=== PATIENT | female | born 1950 | race African-American/Black ===

== ENCOUNTER 2016-08-02 22:20 | Inpatient (IN) | payer MEDICARE ==
[2016-08-02] MEDS ORDERED: MORPHINE IV ONE (22:38)
--- NOTE | 2016-08-02 22:46 | Emergency Department Report ---
ED Shortness of Breath HPI - General Chief Complaint: Dyspnea/Respdistress Stated Complaint: CHEST PAIN Time Seen by Provider: 08/02/16 22:28 Source: patient, family - History of Present Illness Initial Comments: Pt is a 66 yr old female with a h/o HTN, CHF, DM, ESRD on dailysis T TH Sat who presents to the ED c/o shortness of breath which started x 1 day. SOB at rest and exacerbated with exertion. Pt also has had shingles of the RLQ abdomen for the past 3 days. Pt did go to her PMD this morning at [facility] and was prescribed gabapentin and oxycodone, no other medications. Otherwise no fevers, chills, OLEARY, dizziness, NVD, CP, abd pain, travel, or sick contacts. PMD: [facility] Cards: Dr Zuniga Nephro:Dr Gallegos ED Review of Systems ROS: Stated complaint: CHEST PAIN Other details as noted in HPI Comment: All other systems reviewed and negative ED Past Medical Hx - Past Medical History Previous Medical History?: Yes Hx Hypertension: Yes Hx Renal Disease: Yes ED Physical Exam - General General appearance: alert, in no apparent distress - Head Head exam: Present: atraumatic, normocephalic - Eye Eye exam: Present: normal appearance, PERRL, EOMI Pupils: Present: normal accommodation - ENT ENT exam: Present: normal exam, mucous membranes moist - Neck Neck exam: Present: normal inspection - Respiratory Respiratory exam: Present: normal lung sounds bilaterally, wheezes, decreased breath sounds, other (tachypnea) - Cardiovascular Cardiovascular Exam: Present: regular rate, normal rhythm, normal heart sounds. Absent: systolic murmur, diastolic murmur, rubs, gallop - GI/Abdominal GI/Abdominal exam: Present: soft, normal bowel sounds, other (RLQ Shingles with vesicles). Absent: distended, tenderness, guarding, rebound, rigid - Extremities Exam Extremities exam: Present: normal inspection - Back Exam Back exam: Present: normal inspection - Neurological Exam Neurological exam: Present: alert, oriented X3 - Psychiatric Psychiatric exam: Present: normal affect, normal mood - Skin Skin exam: Present: warm, dry, intact, normal color. Absent: rash ED Course Vital Signs 08/02/16 08/02/16 08/03/16 22:41 23:10 00:21 Temperature 98.7 F 98.7 F Pulse Rate 69 69 Respiratory 15 15 18 Rate Blood Pressure 141/73 Blood Pressure 131/54 141/73 [Left] O2 Sat by Pulse 99 98 98 Oximetry - Reevaluation(s) Reevaluation #1: 08/03/16 00:11 Pt re-evaluated, pt reports improvement with breathing, but is still tachypneic ED Medical Decision Making - Lab Data Result diagrams: 08/02/16 22:57 08/02/16 22:57 - EKG Data -: EKG Interpreted by Me - Radiology Data Radiology results: report reviewed, image reviewed CXR: Cardiomegaly with AICD in L chest, otherwise no other findings. - Medical Decision Making Pt report improvement, but still tachypneic, ordered lasix 40mg IVP Case d/w Dr Gallegos, he will see patient on consult and will arrange for dialysis Critical care attestation.: If time is entered above; I have spent that time in minutes in the direct care of this critically ill patient, excluding procedure time. ED Disposition Clinical Impression: Dyspnea, CHF (congestive heart failure), ESRD (end stage renal disease) on dialysis, Shingles Disposition: OP ADMIT IP TO THIS HOSP Is pt being admited?: Yes Condition: Stable
[2016-08-02] MEDS ORDERED: PROVENTIL IH ONE (22:52)
[2016-08-02] MEDS ORDERED: DUONEB 0.5 MG-3 MG/3 ML SOLN IH ONE (22:52)
[2016-08-02 23:39] LABS: INR 1.78 (0.87-1.13); Partial Thromboplastin Time 36.5 Sec. (24.2-36.6)
[2016-08-02 23:45] LABS: Albumin/Globulin Ratio 1.3 %; BUN/Creatinine Ratio 8.84; Bilirubin,Total 0.6 mg/dL (0.1-1.2); Chloride 98.1 mmol/L (98-107); Total Protein 7.2 g/dL (6.3-8.2)
--- NOTE | 2016-08-03 00:11 | XRay Report ---
FINAL REPORT EXAM: XR CHEST 1V AP HISTORY: Chest Pain TECHNIQUE: AP portable view(s) of the chest obtained. PRIORS: None. FINDINGS: No mediastinal shift. Cardiomegaly. No pneumothorax, effusion or focal airspace disease. Left chest pacemaker. No acute skeletal finding. IMPRESSION: No acute pulmonary finding identified.
[2016-08-03] MEDS ORDERED: LASIX IV ONE (00:12)
[2016-08-03 00:20] LABS: Basophils % (Auto) 0.6 % (0.0-1.8); Eosinophils % (Auto) 5.1 % (0.0-4.3); Hematocrit 31.2 % (30.3-42.9); Hemoglobin 9.6 gm/dl (10.1-14.3); Mean Corpuscular HGB Conc 31 % (30-34); Mean Corpuscular Hemoglobin 29 pg (28-32); Mean Corpuscular Volume 93 fl (79-97); Platelet Count 155 K/mm3 (140-440); Red Blood Count 3.36 M/mm3 (3.65-5.03); White Blood Count 8.1 K/mm3 (4.5-11.0)
[2016-08-03 00:23] LABS: Red Cell Distribution Width 21.9 % (13.2-15.2)
[2016-08-03] MEDS ORDERED: VALTREX PO ONE (00:30)
[2016-08-03] MEDS ORDERED: NACL 0.9% 100 ML IV PRN (00:36)
--- NOTE | 2016-08-03 00:38 | Event Note ---
DAREN NINO called pt SOB , appeared to be in fluid overload Will HD today and follow
--- NOTE | 2016-08-03 01:19 | Admit Criteria Form ---
Admission Criteria Documentation: HEART FAILURE: COMMON COMPLICATIONS Clinical Indications for Inpatient Care (Place 'X' for any and all applicable criteria): Ongoing inpatient care may be indicated for heart failure with ANY ONE of the following (1)(2)(3)(4)(5): [ ]I. Ongoing need for care for primary condition requiring frequent therapy adjustments because of changes in cardiac function (eg, drug dosage changes for drugs that are renally metabolized) [ ]II. New-onset heart failure [ ]III. Heart failure with decreased urine output not responsive to attempts to optimize volume status [ ]IV. Acute cardiac ischemia causing or associated with failure [X ]V. Complications of heart failure, including ANY ONE of the following: [ ]a) Pericardial effusion [ ]b) Symptomatic pleural effusion [ ]c) O2 saturation <90% or PO2 < 60 mm Hg (8.0 kPa) on room air or require baseline supplemental O2 [ ]d) Tachypnea [ X]e) Dyspnea [ ]f) Syncope [ ]g) Change in mental status [ ]h) Acute renal insufficiency that is severe (reduction of more than 50% in estimated glomerular filtration rate from baseline) or progressive reduction of more than 25% in estimated glomerular filtration rate from baseline, with creatinine continuing to rise) [ ]i) Hemodynamic instability [ ]j) Anasarca [ ]k) Clinically significant metabolic abnormalities due to heart failure (eg, new-onset metabolic acidosis) Extended stay beyond goal length of stay for primary condition may be needed until ALL of the following are present(1)(3): [ ]a) Stable and effective diuretic regimen established (or patient on stable dialysis regimen if in chronic renal failure) [ ]b) Breathing comfortably at rest [ ]c) Saturation of arterial oxygen greater than 90% or at acceptable baseline [ ]d) Pulmonary edema absent or improved [ ]e) Hemodynamic stability [ ]f) Volume status acceptable on oral medication [ ]g) Peripheral or sacral edema absent or improved [ ]h) Renal function stable and manageable at a lower level of care [ ]i) Complications (eg, pleural effusion) resolved or manageable at a lower level of care [ ]j) Patient or caregiver has received written discharge instructions or educational material addressing activity level, diet, discharge medications, follow-up appointment, weight monitoring, and what to do if symptoms worsen The original [facility] content created by [employer] has been revised. The portions of the content which have been revised are identified through the use of italic text or in bold, and [facility] has neither reviewed nor approved the modified material.All other unmodified content is copyright [facility]. Please see references footnoted in the original [facility] edition 2016 Admission Criteria Met: Yes
--- NOTE | 2016-08-03 01:45 | Event Note ---
Date: 08/03/16 See H/p in reports CHF exacerbation Herpes Zoster T12 root Rt Side ESRD on HD Elevated Troponin T2DM?? HTN Medication reconciliation not available
[2016-08-03] MEDS ORDERED: TYLENOL PO PRN (01:57)
[2016-08-03] MEDS ORDERED: DILAUDID IV PRN (01:57)
[2016-08-03] MEDS ORDERED: MILK OF MAGNESIA PO PRN (01:57)
[2016-08-03] MEDS ORDERED: DULCOLAX PR PRN (01:57)
[2016-08-03] MEDS ORDERED: SODIUM CHLORIDE FLUSH SYRINGE 10 ML IV PRN (02:24)
--- NOTE | 2016-08-03 03:34 | History and Physical Report ---
CHIEF COMPLAINT: Increasing shortness of breath of 1 day duration. HISTORY OF PRESENT ILLNESS: A 66-year-old [place] female with multiple medical problems including hypertension, CHF, diabetes, end-stage renal disease on dialysis, comes in for increasing shortness of breath of 1 day duration. The patient had dialysis yesterday and is due for dialysis on Friday. The patient also has a rash on the right lower quadrant of her abdomen consistent with herpes zoster. The patient did go to her PMD and was given gabapentin and oxycodone. Apparently, no Valtrex or acyclovir was given. No fevers, no chills. The patient is regular for dialysis. Her hosiery looper is Dr. Gallegos from Nephrology and Dr. Zuniga for Cardiology. Orthopnea present. No PND attacks. No chest pain. No palpitations. PAST MEDICAL HISTORY: Significant for hypertension, end-stage renal disease, diabetes, CHF. PAST SURGICAL HISTORY: AV fistula. FAMILY HISTORY: Significant for hypertension. CURRENT MEDICATIONS: Not on the chart. REVIEW OF SYSTEMS: CONSTITUTIONAL: No weight loss, no weight gain. HEENT: No sore throat, no postnasal drip. CARDIOVASCULAR AND RESPIRATORY: Shortness of breath present. As mentioned, orthopnea present. No cough. No wheezing. No sputum. GASTROINTESTINAL: No nausea, no vomiting, no diarrhea. GENITOURINARY: No dysuria, no flank pain. MUSCULOSKELETAL: No joint pains. No muscle pains. CENTRAL NERVOUS SYSTEM: No syncope, no seizures. SKIN: Rash on the right lower quadrant consistent with shingles. Pain present. PSYCHIATRIC: No depression, no anxiety. No homicidal or suicidal thoughts. A 14-point review of system was done. PHYSICAL EXAMINATION: GENERAL: On examination, elderly female, cooperative during examination. Slightly short of breath at rest. VITAL SIGNS: Temperature 98.7, pulse 69, respirations 15, blood pressure 131/54, O2 sats are 99%. HEENT: Unremarkable. Pupils equal and reactive. NECK: Supple, no lymphadenopathy, no thyromegaly. LUNGS: Clear to auscultation and percussion. Good air entry. CARDIOVASCULAR: S1, S2 heard. No gallop, no murmur, no rub. Apical impulse in left fifth intercostal space and midclavicular line. ABDOMEN: Soft and benign. There is a vesicular rash present in the right lower quadrant consistent with T12 nerve root herpes zoster infection. CENTRAL NERVOUS SYSTEM: Alert and oriented x 4, nonfocal exam. EXTREMITIES: Normal. SKIN: As mentioned. LABORATORY DATA: Significant for white count of 8100, H and H is 9.6 and 31.2, platelet count is 155,000. Sodium is 139, potassium is 5.0. Troponin is 0.039. BUN and creatinine is 46 and 5.2. BNP is 6542. DIAGNOSTIC DATA: EKG shows electronic pacemaker, heart rate of 70 per minute. Chest x-ray shows severe cardiomegaly. There is slight pulmonary vascular congestion. ASSESSMENT AND PLAN: 1. Congestive heart failure exacerbation. The patient was given Lasix. The patient also being taken for emergent dialysis for ultrafiltration and fluid removal. 2. Herpes zoster infection. The patient started on Valtrex 1000 t.i.d. and gabapentin 100 q. 8 hours. 3. Hypertension. The patient's home medications are not on the chart. We will start empirically on losartan 100 daily and Coreg 6.25 q. 12. 4. Type 2 diabetes, coverage for now. The to bring the medications and the medications to be reconciled. 5. End-stage renal disease. Continue hemodialysis. Dr. Gallegos of Nephrology consulted. 6. Anemia chronic secondary to end-stage renal disease. MCH and MCV are normal. Epogen as necessary. We will defer to Cardiology. 7. Elevated troponin of 0.039, probably secondary to end-stage renal disease. We will keep a check on the troponin and cardiac enzymes. 8. Deep venous thrombosis prophylaxis, heparin 5000 q. 12 hours. JOB# [id number] VSM/NTS
[2016-08-03 03:47] LABS: Creatine Kinase MB 1.8 ng/mL (0.0-4.0)
[2016-08-03] MEDS: COREG PO SCH ×3 (05:19→22:00)
[2016-08-03] MEDS: NEURONTIN PO SCH ×3 (07:08→22:00)
[2016-08-03] MEDS: PERCOCET 5/325 PO PRN (07:12)
[2016-08-03] MEDS: NOVOLOG SUB-Q SCH ×4 (08:00→23:16)
[2016-08-03] MEDS ORDERED: VALTREX PO SCH ×3 (08:00→22:00)
[2016-08-03] MEDS ORDERED: NACL 0.9% 1000 ML 2,000 ML ONE (10:11)
[2016-08-03] MEDS: PEPCID PO SCH ×2 (10:32→22:00)
[2016-08-03] MEDS: COZAAR PO SCH (10:32)
--- NOTE | 2016-08-03 10:39 | Event Note ---
Date: 08/03/16 Patient with ESRD, chronic CHF, presented with shortness of breath. She is diagnosed with acute on chronic CHF. She was seen and examined. Continue current management.
--- NOTE | 2016-08-03 11:22 | Consultation ---
History of Present Illness - History of Present Illness Thank you for the consultation Patient was evaluated today Well-known to me from [place] [facility] Assessment and plan End-stage renal disease currently on maintenance hemodialysis in a patient who has been very poorly compliant with diet lifestyle and fluid She is currently on Friday schedule for dialysis and was admitted with shortness of breath and chest pain Patient still continues to carry excessive amount of fluid and presented to the hospital with shortness of breath she was dialyzed last night and is currently feeling better Chest pain, appears to be atypical patient also has had shortness of breath could also be due to other etiologies patient does have history of congestive heart failure and needs to be seen by Dr. Zuniga Anemia in end-stage renal disease with history of occult GI bleed in the past was also being followed by gastroenterology hemoglobin is satisfactory Noted to have shingles has had vaccine lat year History of multiple comorbidities in a patient who is very poorly compliant has been discussed on several occasions Admission hemoglobin was 9.6. BNP was elevated 6542 potassium was 5 BUN 46 creatinine was 5.2 We'll continue to follow and make recommendation from renal standpoint Medications and Allergies Allergies Allergy/AdvReac Type Severity Reaction Status Date / Time No Known Allergies Allergy Verified 08/03/16 00:35 Active Meds: Active Medications Acetaminophen (Tylenol) 650 mg PO Q4H PRN PRN Reason: Pain MILD(1-3)/Fever >100.5/OLEARY Aspirin (Ecotrin) 325 mg PO QDAY ÁNGEL Bisacodyl (Dulcolax) 10 mg IN QDAY PRN PRN Reason: Constipation unrelieved by MOM Carvedilol (Coreg) 6.25 mg PO BID [facility] Last Admin: 08/03/16 10:33 Dose: 6.25 mg Famotidine (Pepcid) 10 mg PO BID [facility] Last Admin: 08/03/16 10:32 Dose: 10 mg Gabapentin (Neurontin) 100 mg PO Q8HR [facility] Last Admin: 08/03/16 07:08 Dose: 100 mg Hydromorphone HCl (Dilaudid) 0.5 mg IV Q3H PRN PRN Reason: Pain , Severe (7-10) Sodium Chloride (Nacl 0.9%) 100 mls @ 999 mls/hr IV BUFFY PRN PRN Reason: Hypotension Insulin Aspart (Novolog) 0 units SUB-Q ACHS ÁNGEL PRN Reason: Protocol Last Admin: 08/03/16 08:00 Dose: Not Given Losartan Potassium (Cozaar) 100 mg PO QDAY [facility] Last Admin: 08/03/16 10:32 Dose: 100 mg Magnesium Hydroxide (Milk Of Magnesia) 30 ml PO Q4H PRN PRN Reason: Constipation Ondansetron HCl (Zofran) 4 mg IV Q8H PRN PRN Reason: N/V unrelieved by Reglan Oxycodone/Acetaminophen (Percocet 5/325) 1 tab PO Q6H PRN PRN Reason: Pain, Moderate (4-6) Last Admin: 08/03/16 07:12 Dose: 1 tab Sodium Chloride (Sodium Chloride Flush Syringe 10 Ml) 10 ml IV PRN PRN PRN Reason: LINE FLUSH Valacyclovir HCl (Valtrex) 1,000 mg PO Q24H [facility] Exam - Vital Signs Vital signs: Vital Signs Temp Pulse Resp BP Pulse Ox 98.7 F 69 15 131/54 99 08/02/16 22:41 08/02/16 22:41 08/02/16 22:41 08/02/16 22:41 08/02/16 22:41 Results - Lab Results 08/02/16 22:57 08/02/16 22:57 Most recent lab results Calcium 8.0 mg/dL (8.4-10.2) L 08/02/16 22:57
[2016-08-03] MEDS: ZOFRAN IV PRN (13:45)
[2016-08-03] MEDS ORDERED: NACL ONE (17:21)
[2016-08-04] MEDS: NEURONTIN PO SCH ×3 (06:14→21:48)
[2016-08-04] MEDS: NOVOLOG SUB-Q SCH ×4 (08:00→21:49)
--- NOTE | 2016-08-04 08:06 | Consultation ---
History of Present Illness Consult date: 08/04/16 Consult reason: congestive heart failure History of present illness: Pt is a 66 yr old female with a h/o HTN, CHF, DM, ESRD on dailysis who presented to the ED c/o shortness of breath which started x 1 day, occurred both at rest and with exertion. Patient did not not chest pain, palpitations, dizziness and syncope. No peripheral edema. Some orthopnea, and pnd present. Patient also demonstrated right lower quadrant pain with rash. Pt also has had shingles of the RLQ abdomen for the past 3 days. Patient does not speak fluent libyan. Much of the history was difficult to obtain and the rest was taken from the chart. No director dietetics department was available. Past History Past Medical History: dialysis, ESRD, heart failure, hypertension Medications and Allergies Allergies Allergy/AdvReac Type Severity Reaction Status Date / Time No Known Allergies Allergy Verified 08/03/16 00:35 Active Meds: Active Medications Acetaminophen (Tylenol) 650 mg PO Q4H PRN PRN Reason: Pain MILD(1-3)/Fever >100.5/OLEARY Aspirin (Ecotrin) 325 mg PO QDAY [facility] Bisacodyl (Dulcolax) 10 mg [place] QDAY PRN PRN Reason: Constipation unrelieved by MOM Carvedilol (Coreg) 6.25 mg PO BID [facility] Last Admin: 08/03/16 22:00 Dose: 6.25 mg Famotidine (Pepcid) 10 mg PO BID [facility] Last Admin: 08/03/16 22:00 Dose: 10 mg Gabapentin (Neurontin) 100 mg PO Q8HR [facility] Last Admin: 08/04/16 06:14 Dose: 100 mg Hydromorphone HCl (Dilaudid) 0.5 mg IV Q3H PRN PRN Reason: Pain , Severe (7-10) Last Admin: 08/03/16 14:40 Dose: 0.5 mg Sodium Chloride (Nacl 0.9%) 100 mls @ 999 mls/hr IV BUFFY PRN PRN Reason: Hypotension Insulin Aspart (Novolog) 0 units SUB-Q ACHS ÁNGEL PRN Reason: Protocol Last Admin: 08/03/16 23:16 Dose: Not Given Losartan Potassium (Cozaar) 100 mg PO QDAY [facility] Last Admin: 08/03/16 10:32 Dose: 100 mg Magnesium Hydroxide (Milk Of Magnesia) 30 ml PO Q4H PRN PRN Reason: Constipation Ondansetron HCl (Zofran) 4 mg IV Q8H PRN PRN Reason: N/V unrelieved by Reglan Last Admin: 08/03/16 13:45 Dose: 4 mg Oxycodone/Acetaminophen (Percocet 5/325) 1 tab PO Q6H PRN PRN Reason: Pain, Moderate (4-6) Last Admin: 08/03/16 07:12 Dose: 1 tab Sodium Chloride (Sodium Chloride Flush Syringe 10 Ml) 10 ml IV PRN PRN PRN Reason: LINE FLUSH Valacyclovir HCl (Valtrex) 1,000 mg PO Q72HR ÁNGEL Review of Systems All systems: negative (pertinent positives mentioned in HPI) Physical Examination Vital Signs Temp Pulse Resp BP Pulse Ox 98.7 F 69 15 131/54 99 08/02/16 22:41 08/02/16 22:41 08/02/16 22:41 08/02/16 22:41 08/02/16 22:41 General appearance: no acute distress HEENT: Positive: PERRL, EOMI Neck: Positive: neck supple. Negative: JVD/HJR Cardiac: Positive: Reg Rate and Rhythm, S1/S2 Lungs: Positive: clear to auscultation Abdomen: Positive: Soft, Active Bowel Sounds Extremities: Present: normal. Absent: edema Results 08/02/16 22:57 08/02/16 22:57 Cardiac Enzymes 08/03/16 Range/Units 08:11 CK-MB (CK-2) 2.0 (0.0-4.0) ng/mL Assessment and Plan CHF - no documentation of EF HTN ESRD on HD Madiglabhi Continue medical therapy with BB and ACEi Currently euvolemic by physical exam Volume removal via dialysis Blood pressure well controlled - continue current medical therapy Obtain echo for documentation of EF
[2016-08-04 09:54] LABS: INR 1.69 (0.87-1.13)
[2016-08-04] MEDS: COREG PO SCH ×2 (10:43→21:48)
[2016-08-04] MEDS: PEPCID PO SCH ×2 (10:44→21:48)
[2016-08-04] MEDS: ECOTRIN PO SCH (10:44)
[2016-08-04] MEDS: COZAAR PO SCH (10:45)
[2016-08-04] MEDS: PERCOCET 5/325 PO PRN ×2 (11:27→17:52)
--- NOTE | 2016-08-04 11:55 | Progress Note ---
Assessment and Plan End-stage renal disease patient is currently in maintenance hemodialysis on Friday and Friday She did receive dialysis on late Friday night Patient is currently established at [facility] She has been very noncompliant with her diet and lifestyle and does have chronic fluid overload History of anemia with chronic intermittent GI bleed, to be monitored hemoglobin was fairly stable History of chronic atrial fibrillation followed by Dr. Zuniga/history of congestive heart failure Admitted with the herpes zoster Valtrex dose was adjusted to be given after dialysis Patient is currently already on gabapentin We'll continue to follow and make recommendation from renal standpoint Depending on her volume can consider either Friday or Friday while she is here Subjective Interval history: Patient was seen today for follow-up on multiple renal related issues Currently denying any complaints of chest pain pressure nausea or vomiting Events of 24 hours vitals labs intake output medications were reviewed Zoster pain is somewhat better currently on Valtrex Physical examination Vitals reviewed HEENT: Oral mucosa moist Neck: Supple no thyromegaly or JVD Cardiovascular: Regular rate and rhythm S1 and S2 heard Abdomen: Soft nontender no suprapubic mass no renal bruit Rash from zoster seen Extremity: Edema moderate dry skin, no peripheral cyanosis Neurological: Alert awake follows commands Objective - Vital Signs Vital signs: Vital Signs - 12hr 08/04/16 08/04/16 08/04/16 00:46 04:57 09:19 Temperature 97.6 F 98.2 F 98.5 F Pulse Rate Pulse Rate [ 84 74 Apical] Pulse Rate [ 71 Left Radial] Respiratory 20 18 16 Rate Blood Pressure Blood Pressure 100/72 121/68 100/62 [Left Arm] O2 Sat by Pulse 94 96 100 Oximetry 08/04/16 08/04/16 08/04/16 09:57 10:43 10:45 Temperature Pulse Rate 71 71 Pulse Rate [ Apical] Pulse Rate [ Left Radial] Respiratory Rate Blood Pressure 100/62 100/62 Blood Pressure [Left Arm] O2 Sat by Pulse 100 Oximetry - Lab 08/02/16 22:57 08/02/16 22:57 Most recent lab results Calcium 8.0 mg/dL (8.4-10.2) L 08/02/16 22:57
[2016-08-04] MEDS: ZOFRAN IV PRN ×2 (13:40→17:51)
--- NOTE | 2016-08-04 14:44 | Consultation ---
TIME OF SERVICE: Around 11:21 in the morning. PERSONNEL ASKING CONSULTATION: Corey Lantigua MD REASON FOR CONSULTATION: Management of end-stage renal disease in a patient, who presented to the hospital with complaints of shortness of breath and some chest pain. SOURCE OF INFORMATION: From the patient's , who is Hebrew speaking as well as old records. She is also known to me from [place] [facility] Subjective Patient is a 66-year-old [place] female who is currently established in our clinic for her ESRD care.. Patient normally dialyzes on Friday schedule recently she has developed herpetic lesion on the right side of her lower abdomen and upper thigh area. She also has had problems with chest discomfort and some shortness of breath. Patient is chronically noncompliant she was evaluated in the ER and was felt to have fluid overload for which dialysis was ordered. Patient has had dialysis and is currently feeling much better She is still continues to have vesicular rash of the right side which she is showing me now. No complaints of any fever or chills headache she has been started on Valtrex Past medical history is significant for End-stage renal disease currently on maintenance hemodialysis Chronic noncompliance with fluid sodium and has consistent fluid overload despite several educational attempts Anemia and end-stage renal disease Secondary hyperparathyroidism Atrial fibrillation GI bleed Congestive heart failure prior history of stroke Current allergies Reviewed Home medicine: Reviewed Social history: Patient is lives with her know history of recent alcohol tobacco use she has very poor eating habits Family history noncontributory for renal related disorder Review of system: Positive for shortness of breath and nonspecific chest pain currently resolved rash that has appeared in the right side of her flank without any fever or chills Complete review of other systems were negative PHYSICAL EXAMINATION: GENERAL: The patient is a 66-year-old oriented female, who is lying comfortably in bed, does not appear in acute distress. VITAL SIGNS: Reviewed from this admission. HEENT: Normocephalic, atraumatic skull. Extraocular movements are intact. Oral mucosa moist. NECK: Supple without jugular venous distention. ABDOMEN: Soft, nontender. No voluntary guarding, rigidity, rebound. No organomegaly. No masses. does have classic herpetic rash in the right flank and front of the abdomen and upper thigh area EXTREMITIES: The patient does have edema more so on the right than the left approximately 1+ with some chronic discoloration. ENDOCRINE: Thyroid not enlarged. dermatology; patient appears to have vesicular eruption along the right side in a dermatomal distribution fashion. labs and x-rays were reviewed from this admission Chest x-ray did not show any evidence of pulmonary vascular congestion her anemia appears to be stable and better ASSESSMENT AND PLAN: End-stage renal disease. The patient is currently on maintenance hemodialysis normally on Friday, , and Friday. Last night, she did paralyze. Currently, she is feeling much better, no complaints of chest pain or pressure. She still continues to have chronic edema more so on the right than left lower extremity. At this time, there is no Indication for repeat dialysis She is feeling much better as per today tolerated hemodialysis well Monitor dialysis related labs Emphasized about fluid restriction sodium restriction changing her diet Assessment explained her everything May benefit from cardiology evaluation and follow-up We'll continue to follow and make recommendation from renal standpoint JOB# [id number] EMELY/KARAN LUJAN
--- NOTE | 2016-08-04 14:59 | Progress Note ---
Assessment and Plan Assessment and plan: Acute on chronic heart failure. On Cozaar. To obtain home medications. Herpezs zoster. valtrex, neurontin End-stage renal disease on hemodialysis Chronic atrial fibrillation. Has been on Coumadin. INR subtherapeutic 1.69. Resume Coumadin Diabetes mellitus type II. Fingerstick glucose qac and hs DVT prophylaxis. on Coumadin Full CODE STATUS History Interval history: right flank pain at site of herpes zoster blister, less shortness of breath Hospitalist Physical - Physical exam Narrative exam: Gen: appearance :Not in acute distress, HEENT: normocephalic atraumatic Neck :supple no JVD Lungs: Bilateral basal rales, no wheezes Heart:S1 and S2 regular, no murmurs, no gallop, no rubs Abdomen soft, nontender, nondistended, normal bowel sounds Extremities: no edema, no clubbing, or cyanosis Neuro : Awake alert oriented 3, no focal neurological signs skin: herpes zoster vesicles on right flank,hip region Psych: calm - Constitutional Vitals: Temp Pulse Resp BP Pulse Ox 98.5 F 70 16 102/64 100 08/04/16 13:38 08/04/16 13:38 08/04/16 13:38 08/04/16 13:38 08/04/16 13:38 General appearance: Present: no acute distress Results - Labs CBC & Chem 7: 08/02/16 22:57 08/02/16 22:57 Labs: Laboratory Last Values WBC 8.1 K/mm3 (4.5-11.0) 08/02/16 22:57 RBC 3.36 M/mm3 (3.65-5.03) L 08/02/16 22:57 Hgb 9.6 gm/dl (10.1-14.3) L 08/02/16 22:57 Hct 31.2 % (30.3-42.9) 08/02/16 22:57 MCV 93 fl (79-97) 08/02/16 22:57 MCH 29 pg (28-32) 08/02/16 22:57 MCHC 31 % (30-34) 08/02/16 22:57 RDW 21.9 % (13.2-15.2) H 08/02/16 22:57 Plt Count 155 K/mm3 (140-440) 08/02/16 22:57 Lymph % (Auto) 6.1 % (13.4-35.0) L 08/02/16 22:57 [place] % (Auto) 8.4 % (0.0-7.3) H 08/02/16 22:57 Eos % (Auto) 5.1 % (0.0-4.3) H 08/02/16 22:57 Baso % (Auto) 0.6 % (0.0-1.8) 08/02/16 22:57 Lymph # 0.5 K/mm3 (1.2-5.4) L 08/02/16 22:57 [place] # 0.7 K/mm3 (0.0-0.8) 08/02/16 22:57 Eos # 0.4 K/mm3 (0.0-0.4) 08/02/16 22:57 Baso # 0.1 K/mm3 (0.0-0.1) 08/02/16 22:57 Seg Neutrophils % 79.8 % (40.0-70.0) H 08/02/16 22:57 Seg Neutrophils # 6.4 K/mm3 (1.8-7.7) 08/02/16 22:57 PT 19.9 Sec. (12.2-14.9) H 08/04/16 09:04 INR 1.69 (0.87-1.13) H 08/04/16 09:04 APTT 36.5 Sec. (24.2-36.6) 08/02/16 22:57 Sodium 139 mmol/L (137-145) 08/02/16 22:57 Potassium 5.0 mmol/L (3.6-5.0) 08/02/16 22:57 Chloride 98.1 mmol/L (98-107) 08/02/16 22:57 Carbon Dioxide 26 mmol/L (22-30) 08/02/16 22:57 Anion Gap 20 mmol/L 08/02/16 22:57 BUN 46 mg/dL (7-17) H 08/02/16 22:57 Creatinine 5.2 mg/dL (0.7-1.2) H 08/02/16 22:57 Estimated GFR 8 ml/min 08/02/16 22:57 BUN/Creatinine Ratio 8.84 % 08/02/16 22:57 Glucose 246 mg/dL (65-100) H 08/02/16 22:57 POC Glucose 116 (70-105) H 08/04/16 07:41 Hemoglobin A1c 5.2 % (4-6) 08/03/16 03:48 Calcium 8.0 mg/dL (8.4-10.2) L 08/02/16 22:57 Total Bilirubin 0.60 mg/dL (0.1-1.2) 08/02/16 22:57 AST 13 units/L (5-40) 08/02/16 22:57 ALT 13 units/L (7-56) 08/02/16 22:57 Alkaline Phosphatase 210 units/L (35-129) H 08/02/16 22:57 Total Creatine Kinase 27 units/L (30-135) L 08/03/16 08:11 CK-MB (CK-2) 2.0 ng/mL (0.0-4.0) 08/03/16 08:11 CK-MB (CK-2) Rel Index 7.4 (0-4) H 08/03/16 08:11 Troponin T 0.043 ng/mL (0.00-0.029) H 08/03/16 08:11 NT-Pro-B Natriuret Pep 6542 pg/mL (0-900) H 08/02/16 22:57 Total Protein 7.2 g/dL (6.3-8.2) 08/02/16 22:57 Albumin 4.0 g/dL (3.9-5) 08/02/16 22:57 Albumin/Globulin Ratio 1.3 % 08/02/16 22:57 Triglycerides 54 mg/dL (2-149) 08/02/16 22:57 Cholesterol 110 mg/dL (50-199) 08/02/16 22:57 LDL Cholesterol Direct 50 mg/dL (50-130) 08/02/16 22:57 HDL Cholesterol 50 mg/dL (40-59) 08/02/16 22:57 Cholesterol/HDL Ratio 2.20 % 08/02/16 22:57
[2016-08-04] MEDS: COUMADIN PO SCH (17:51)
[2016-08-05] MEDS: NEURONTIN PO SCH ×3 (05:27→21:17)
[2016-08-05 05:49] LABS: INR 1.38 (0.87-1.13)
[2016-08-05] MEDS: NOVOLOG SUB-Q SCH ×4 (08:20→21:36)
[2016-08-05] MEDS: ZOFRAN IV PRN ×2 (08:47→18:39)
--- NOTE | 2016-08-05 09:17 | Progress Note ---
Assessment and Plan - Patient Problems (1) ESRD (end stage renal disease) Current Visit: Yes Status: Acute Plan to address problem: HD on T/T/S. Chronic diastolic HF. LVEF-50-55%, UF as tolerated. Adjust meds per renal function. (2) Anemia in ESRD (end-stage renal disease) Current Visit: Yes Status: Acute (3) CHF (congestive heart failure) Current Visit: Yes Status: Chronic Qualifiers: Congestive heart failure type: diastolic Congestive heart failure chronicity: C (4) Shingles Current Visit: Yes Status: Acute Qualifiers: Herpes zoster complications: H Herpes zoster neurologic complication detail : H Herpes zoster ocular complication detail: H (5) HTN (hypertension) Current Visit: Yes Status: Chronic Qualifiers: Hypertension type: H Subjective Date of service: 08/05/16 Interval history: alert, oriented, c/O pain from shingles on right lower abdomen. C/O nausea. reports that pt jerks sometimes Objective - Vital Signs Vital signs: Vital Signs - 12hr 08/04/16 08/05/16 08/05/16 23:19 00:00 04:00 Temperature 98.6 F 98.9 F Pulse Rate [ 70 70 Apical] Respiratory 20 20 Rate Blood Pressure 80/50 89/46 [Left Arm] O2 Sat by Pulse 100 92 99 Oximetry 08/05/16 07:57 Temperature Pulse Rate [ Apical] Respiratory Rate Blood Pressure [Left Arm] O2 Sat by Pulse 99 Oximetry - General Appearance General appearance: well-developed, chronically ill EENT: mucous membranes dry Neck: no JVD Respiratory: Present: Decreased Breath Sounds Cardiology: irregular Gastrointestinal: normoactive bowel sounds Neurologic: alert and oriented x3 Musculoskeletal: other (chronic stasis dermatitic changes in LE, AV access has bruit and thrill) - Lab 08/02/16 22:57 08/02/16 22:57 Most recent lab results Calcium 8.0 mg/dL (8.4-10.2) L 08/02/16 22:57
[2016-08-05] MEDS: ECOTRIN PO SCH (10:48)
[2016-08-05] MEDS: PEPCID PO SCH ×2 (10:49→21:17)
[2016-08-05] MEDS: COREG PO SCH ×2 (10:49→22:00)
[2016-08-05] MEDS: COZAAR PO SCH (10:50)
--- NOTE | 2016-08-05 11:10 | Progress Note ---
Assessment and Plan Assessment and plan: Acute on chronic heart failure. On Cozaar. Nurse too obtain home medication list. Herpezs zoster on right flank and right hip region. On valtrex, neurontin End-stage renal disease on hemodialysis Chronic atrial fibrillation. Has been on Coumadin. INR subtherapeutic 1.69. Resume Coumadin Diabetes mellitus type II. Fingerstick glucose qac and hs DVT prophylaxis. on Coumadin. INR subtherapeutic. Full CODE STATUS Dispo.Likely d/c home tomorrow History Interval history: right flank and right hip pain at site of herpes zoster blister, less shortness of breath Hospitalist Physical - Physical exam Narrative exam: Gen: appearance :Not in acute distress, HEENT: normocephalic atraumatic Neck :supple no JVD Lungs: Bilateral basal rales, no wheezes Heart:S1 and S2 irregular, no murmurs, no gallop, no rubs Abdomen soft, nontender, nondistended, normal bowel sounds Extremities: no edema, no clubbing, or cyanosis Neuro : Awake alert oriented 3, no focal neurological signs skin: herpes zoster vesicles on right flank,hip region Psych: calm - Constitutional Vitals: Temp Pulse Resp BP Pulse Ox 97.4 F L 70 20 128/61 99 08/05/16 08:00 08/05/16 10:50 08/05/16 08:00 08/05/16 10:50 08/05/16 08:00 General appearance: Present: no acute distress Results - Labs CBC & Chem 7: 08/02/16 22:57 08/02/16 22:57 Labs: Laboratory Last Values WBC 8.1 K/mm3 (4.5-11.0) 08/02/16 22:57 RBC 3.36 M/mm3 (3.65-5.03) L 08/02/16 22:57 Hgb 9.6 gm/dl (10.1-14.3) L 08/02/16 22:57 Hct 31.2 % (30.3-42.9) 08/02/16 22:57 MCV 93 fl (79-97) 08/02/16 22:57 MCH 29 pg (28-32) 08/02/16 22:57 MCHC 31 % (30-34) 08/02/16 22:57 RDW 21.9 % (13.2-15.2) H 08/02/16 22:57 Plt Count 155 K/mm3 (140-440) 08/02/16 22:57 Lymph % (Auto) 6.1 % (13.4-35.0) L 08/02/16 22:57 [place] % (Auto) 8.4 % (0.0-7.3) H 08/02/16 22:57 Eos % (Auto) 5.1 % (0.0-4.3) H 08/02/16 22:57 Baso % (Auto) 0.6 % (0.0-1.8) 08/02/16 22:57 Lymph # 0.5 K/mm3 (1.2-5.4) L 08/02/16 22:57 [place] # 0.7 K/mm3 (0.0-0.8) 08/02/16 22:57 Eos # 0.4 K/mm3 (0.0-0.4) 08/02/16 22:57 Baso # 0.1 K/mm3 (0.0-0.1) 08/02/16 22:57 Seg Neutrophils % 79.8 % (40.0-70.0) H 08/02/16 22:57 Seg Neutrophils # 6.4 K/mm3 (1.8-7.7) 08/02/16 22:57 PT 16.9 Sec. (12.2-14.9) H 08/05/16 05:10 INR 1.38 (0.87-1.13) H 08/05/16 05:10 APTT 36.5 Sec. (24.2-36.6) 08/02/16 22:57 Sodium 139 mmol/L (137-145) 08/02/16 22:57 Potassium 5.0 mmol/L (3.6-5.0) 08/02/16 22:57 Chloride 98.1 mmol/L (98-107) 08/02/16 22:57 Carbon Dioxide 26 mmol/L (22-30) 08/02/16 22:57 Anion Gap 20 mmol/L 08/02/16 22:57 BUN 46 mg/dL (7-17) H 08/02/16 22:57 Creatinine 5.2 mg/dL (0.7-1.2) H 08/02/16 22:57 Estimated GFR 8 ml/min 08/02/16 22:57 BUN/Creatinine Ratio 8.84 % 08/02/16 22:57 Glucose 246 mg/dL (65-100) H 08/02/16 22:57 POC Glucose 208 (70-105) H 08/04/16 21:47 Hemoglobin A1c 5.2 % (4-6) 08/03/16 03:48 Calcium 8.0 mg/dL (8.4-10.2) L 08/02/16 22:57 Total Bilirubin 0.60 mg/dL (0.1-1.2) 08/02/16 22:57 AST 13 units/L (5-40) 08/02/16 22:57 ALT 13 units/L (7-56) 08/02/16 22:57 Alkaline Phosphatase 210 units/L (35-129) H 08/02/16 22:57 Total Creatine Kinase 27 units/L (30-135) L 08/03/16 08:11 CK-MB (CK-2) 2.0 ng/mL (0.0-4.0) 08/03/16 08:11 CK-MB (CK-2) Rel Index 7.4 (0-4) H 08/03/16 08:11 Troponin T 0.043 ng/mL (0.00-0.029) H 08/03/16 08:11 NT-Pro-B Natriuret Pep 6542 pg/mL (0-900) H 08/02/16 22:57 Total Protein 7.2 g/dL (6.3-8.2) 08/02/16 22:57 Albumin 4.0 g/dL (3.9-5) 08/02/16 22:57 Albumin/Globulin Ratio 1.3 % 08/02/16 22:57 Triglycerides 54 mg/dL (2-149) 08/02/16 22:57 Cholesterol 110 mg/dL (50-199) 08/02/16 22:57 LDL Cholesterol Direct 50 mg/dL (50-130) 08/02/16 22:57 HDL Cholesterol 50 mg/dL (40-59) 08/02/16 22:57 Cholesterol/HDL Ratio 2.20 % 08/02/16 22:57
--- NOTE | 2016-08-05 12:33 | Progress Note ---
Assessment and Plan Abdominal pain Volume overload Hypotension, chronic on midodrine as an outpatient Atherosclerotic heart disease of [place] coronary artery without angina pectoris non-obstructive by [facility] 2011 MPI 2016 - no ischemia EF 55-60% on echo this admission Pulmonary hypertension on home oxygen therapy on Opsimut as an outpatient Chronic atrial fibrillation on warfarin as an outpatient with a low target INR of 1.8-2.2. Chronic Kidney Disease, on HD Anemia Chronic viral hepatitis C Nonrheumatic tricuspid (valve) insufficiency - severe Hx of cerebrovascular disease Precordial pain - chronic Pacemaker/cardiac insitu Shingles Subjective Date of service: 08/05/16 Interval history: Patients is resting in bed comfortably. No distress noted. Objective Vital Signs Temp Pulse Pulse Pulse Resp BP BP 08/05/16 10:50 70 128/61 08/05/16 10:49 70 128/61 08/05/16 08:00 97.4 F L 70 20 128/61 08/05/16 07:57 08/05/16 04:00 98.9 F 70 20 89/46 08/05/16 00:00 98.6 F 70 20 80/50 08/04/16 23:19 08/04/16 21:00 98.3 F 70 20 104/58 08/04/16 17:27 98.1 F 70 16 97/55 08/04/16 13:38 98.5 F 70 16 102/64 Pulse Ox 08/05/16 10:50 08/05/16 10:49 08/05/16 08:00 99 08/05/16 07:57 99 08/05/16 04:00 99 08/05/16 00:00 92 08/04/16 23:19 100 08/04/16 21:00 96 08/04/16 17:27 99 08/04/16 13:38 100 - Physical Examination General: No Apparent Distress HEENT: Positive: PERRL Neck: Positive: neck supple. Negative: JVD/HJR Cardiac: Positive: Other (paced) Abdomen: Positive: Soft, Active Bowel Sounds Extremities: Present: normal. Absent: edema - Labs and Meds Coagulation 08/05/16 Range/Units 05:10 PT 16.9 H (12.2-14.9) Sec. INR 1.38 H (0.87-1.13)
[2016-08-05] MEDS: COUMADIN PO SCH (18:00)
[2016-08-06] MEDS: ZOFRAN IV PRN (01:00)
[2016-08-06] MEDS: NEURONTIN PO SCH ×2 (05:08→15:45)
[2016-08-06 05:27] LABS: INR 2.02 (0.87-1.13)
--- NOTE | 2016-08-06 08:35 | Discharge Summary ---
Providers - Providers Date of Admission: 08/03/16 00:28 Date of discharge: 08/06/16 Attending physician: DAR TRIANA MD 08/03/16 Consult to Cardiac Rehabilitation [CONS] Routine Reason For Exam: Phase I 08/03/16 01:57 Consult to Physician [CONS] Routine Consulting Provider: TY DUBON Reason For Exam: ESRD Place consult to:: live Notified:: a service Phone number called:: [phone] Was contact made?: Yes If yes, spoke with:: kenny Time called:: 09:10 08/03/16 02:19 Consult to Physician [CONS] Routine Consulting Provider: DM ZEPEDA Reason For Exam: CHF exacerbation Place consult to:: [facility] Notified:: a service Phone number called:: [phone] Was contact made?: Yes Time called:: 08:58 Primary care physician: OCCUPATIONAL HEALTH COORDINATOR Hospitalization Reason for admission: right flank pain Condition: Stable Hospital course: Pt is a 66 yr old female with a h/o HTN, CHF, DM, ESRD on dailysis who presented to the ED c/o shortness of breath which started x 1 day, occurred both at rest and with exertion. Patient did not have any chest pain, palpitations, dizziness and syncope. No peripheral edema. Some orthopnea, and pnd present. Patient also demonstrated right lower quadrant pain with rash. Pt also has had shingles of the RLQ abdomen for the past 3 days. Patient does not speak fluent [place]ipino. Much of the history was difficult to obtain and the rest was taken from the chart. No virtual customer assistant was available on admission, following review she was noted to have right flank pain consistent with herpes zoster and was started on Valtrex. She was started on BP medications for ACS protocol but was noted to have Hypotension and on review of records and discuss with family and noted that the patient has chronic Hypotension and is on Midodrine. These BP meds were held. The patient is to also use topical cream for pain control and can be discharged post dilaysis today. She is to follow with PCP, cardiology and Facility Maintenance Manager. I did advise the patient and her family on the need to continue the Coumadin. Although the med rec was not done in the hospital I did go over all the medications with the patient and and after continue those meds with the addition of the Valtrex and gabapentin was added here. Patient was dialyzed and this helped with the acute on chronic systolic heart failure * Acute on chronic systolic heart failure. * Herpezs zoster on right flank and right hip region. * End-stage renal disease on hemodialysis * Chronic atrial fibrillation. * Diabetes mellitus type II. * Terminal pain secondary to herpes zoster * Hypotension, chronic * Atherosclerotic heart disease of [place] coronary artery without angina pectoris * Pulmonary hypertension on home oxygen therapy * Chronic Kidney Disease, on HD * Anemia * Chronic viral hepatitis C * Nonrheumatic tricuspid (valve) insufficiency - severe * Hx of cerebrovascular disease * Precordial pain - chronic * Pacemaker/cardiac insitu Disposition: DC/TX-06 HOME UNDER HOME HL Time spent for discharge: 35 MINS Core Measure Documentation - Palliative Care Palliative Care/ Comfort Measures: Not Applicable - Core Measures Any of the following diagnoses?: heart failure - VTE Discharge Requirements Deep Vein Thrombosis/Pulmonary Embolism Present on Admission: No - Heart Failure Discharge Requirements ELIOT/ARB for LVSD if EF <40%: No Reason for no ELIOT/ARB: Hypotension Beta truong at discharge: Yes Exam - Physical Exam Narrative exam: VITAL SIGNS: Reviewed. GENERAL: The patient appeared well nourished and normally developed. Vital signs as documented. HEAD: No signs of head trauma. EYES: Pupils are equal. Extraocular motions intact. EARS: Hearing grossly intact. MOUTH: Oropharynx is normal. NECK: No adenopathy, no JVD. CHEST: Chest with clear breath sounds bilaterally. No wheezes, rales, or rhonchi. CARDIAC: Regular rate and rhythm. S1 and S2, without murmurs, gallops, or rubs. VASCULAR: No Edema. Peripheral pulses normal and equal in all extremities. ABDOMEN: Soft, without detectable tenderness. No sign of distention. No rebound or guarding, and no masses palpated. Bowel Sounds normal. MUSCULOSKELETAL: Good range of motion of all major joints. Extremities without clubbing, cyanosis or edema. NEUROLOGIC EXAM: Alert and oriented x 3. No focal sensory or strength deficits. Speech normal. Follows commands. PSYCHIATRIC: Mood normal. SKIN: Right flank rash pleuritic. - Constitutional Vitals: Temp Pulse Resp BP Pulse Ox 98.3 F 70 20 84/52 98 08/06/16 05:52 08/06/16 05:52 08/06/16 05:52 08/06/16 05:52 08/06/16 05:52 Plan Activity: advance as tolerated, fall precautions Diet: renal Special Instructions: record daily BP diary, record blood sugar diary Additional Instructions: continue home meds. Please always have a copy of your home medication when coming to the hospital. Follow up with: PRIMARY MD ZA [Primary Care Provider] - 7 Days DM ZEPEDA MD [Staff Physician] - 7 Days GEORGIA DE LEÓN MD [Staff Physician] - 7 Days Forms: Warfarin Discharge Instruction Prescriptions: valACYclovir [Valtrex] 1,000 mg PO Q72HR #7 tablet
--- NOTE | 2016-08-06 09:03 | Progress Note ---
Assessment and Plan - Patient Problems (1) ESRD (end stage renal disease) Current Visit: Yes Status: Acute (2) Anemia in ESRD (end-stage renal disease) Current Visit: Yes Status: Acute (3) CHF (congestive heart failure) Current Visit: Yes Status: Chronic Qualifiers: Congestive heart failure type: diastolic Congestive heart failure chronicity: C (4) Shingles Current Visit: Yes Status: Acute Qualifiers: Herpes zoster complications: H Herpes zoster neurologic complication detail : H Herpes zoster ocular complication detail: H (5) HTN (hypertension) Current Visit: Yes Status: Chronic Qualifiers: Hypertension type: H Subjective Date of service: 08/06/16 Objective - Vital Signs Vital signs: Vital Signs - 12hr 08/05/16 08/05/16 08/06/16 21:30 22:00 00:00 Temperature 98.3 F Pulse Rate 70 Pulse Rate [ 70 Apical] Respiratory 20 Rate Blood Pressure 90/52 Blood Pressure 105/49 [Left Arm] O2 Sat by Pulse 99 100 Oximetry 08/06/16 08/06/16 02:00 05:52 Temperature 98.3 F Pulse Rate 78 Pulse Rate [ 70 Apical] Respiratory 20 Rate Blood Pressure Blood Pressure 84/52 [Left Arm] O2 Sat by Pulse 98 Oximetry - Lab 08/02/16 22:57 08/02/16 22:57 Most recent lab results Calcium 8.0 mg/dL (8.4-10.2) L 08/02/16 22:57
[2016-08-06] MEDS ORDERED: COZAAR PO SCH (10:00)
[2016-08-06] MEDS ORDERED: NACL 0.9% 100 ML IV PRN (10:08)
--- NOTE | 2016-08-06 11:08 | Progress Note ---
Assessment and Plan Abdominal pain Volume overload Hypotension, chronic on midodrine as an outpatient Atherosclerotic heart disease of [place] coronary artery without angina pectoris non-obstructive by [facility] 2011 MPI 2016 - no ischemia EF 55-60% on echo this admission Pulmonary hypertension on home oxygen therapy on Opsimut as an outpatient Chronic atrial fibrillation on warfarin as an outpatient with a low target INR of 1.8-2.2. Chronic Kidney Disease, on HD Anemia Chronic viral hepatitis C Nonrheumatic tricuspid (valve) insufficiency - severe Hx of cerebrovascular disease Precordial pain - chronic Pacemaker/cardiac insitu Shingles Recommendations: Medical therapy for nonobstructive coronary disease, chronic diastolic heart failure and atrial fibrillation. Subjective Date of service: 08/06/16 Interval history: Patients is resting in bed comfortably. No distress noted. No reported cardiac events overnight. Objective Vital Signs Temp Pulse Pulse Pulse Resp BP BP 08/06/16 10:28 08/06/16 07:35 98.7 F 70 22 107/54 08/06/16 05:52 98.3 F 70 20 84/52 08/06/16 02:00 78 08/06/16 00:00 98.3 F 70 20 105/49 08/05/16 22:00 70 90/52 08/05/16 21:30 08/05/16 21:00 98.6 F 70 18 90/55 08/05/16 16:00 98.5 F 70 18 98/54 Pulse Ox 08/06/16 10:28 96 08/06/16 07:35 99 08/06/16 05:52 98 08/06/16 02:00 08/06/16 00:00 100 08/05/16 22:00 08/05/16 21:30 99 08/05/16 21:00 99 08/05/16 16:00 95 - Physical Examination General: No Apparent Distress HEENT: Positive: PERRL Cardiac: Positive: Other (paced) - Labs and Meds Coagulation 08/06/16 Range/Units 05:01 PT 22.9 H (12.2-14.9) Sec. INR 2.02 H (0.87-1.13)
[2016-08-06] MEDS: NOVOLOG SUB-Q SCH (12:40)
--- NOTE | 2016-08-06 12:55 | Query- Heart Failure ---
Deadelgado Mclean Renea Date:____08/06/16 Linux System Administrator/CDS: Dawood Law Phone#:____[phone] Exercise your independent professional judgment when responding to query. Questions asked do not imply a particular answer is desired or expected. We greatly appreciate your clarification on this issue. Clinical Documentation States: 66 year old female was admitted on 08/03/16. The Progress note 08/05/16 states " Assessment and plan: Acute on chronic heart failure. On Cozaar. Nurse too obtain home medication list. Herpezs zoster on right flank and right hip region. On valtrex, neurontin End-stage renal disease on hemodialysis Chronic atrial fibrillation. Has been on Coumadin. INR subtherapeutic 1.69. Resume Coumadin Diabetes mellitus type II. Fingerstick glucose qac and hs DVT prophylaxis. on Coumadin. INR subtherapeutic." If possible, Please Clarify if you mean: Acuity: [ ] Acute [ X] Acute on Chronic [ ] Chronic Type: [X ] Systolic Heart Failure [ ] Diastolic Heart Failure [ ] Combined Heart Failure [ ] Other: Present on Admission: [X ] Yes (Y) [ ] Clinically undeterminable (W) [ ] No (N) Please also document response in your Progress Notes and/or Discharge Summary and indicate if the condition was present on admission. LE
[2016-08-06 15:04] VITALS: BP 110/59
[2016-08-06] MEDS: ECOTRIN PO SCH (15:45)
[2016-08-06] MEDS: COREG PO SCH (15:45)
[2016-08-06] MEDS: PEPCID PO SCH (15:45)
[2016-08-06] MEDS ORDERED: COUMADIN PO SCH (17:00)
== END 2016-08-06 17:50 | disposition home health service (06) | DRG 291 ==
LOC: ED 22:20 → 4A 08-03 00:28
PROVIDERS: ADMIT Internal Medicine; ATTEND Internal Medicine
PROC: 5A1D60Z (ICD-10-PCS; principal; 2016-08-03)
DX: I13.2 Hypertensive heart and chronic kidney disease with heart failure and with stage 5 chronic kidney disease, or end stage renal disease (principal); N18.6 End stage renal disease; I50.23 Acute on chronic systolic (congestive) heart failure; K92.2 Gastrointestinal hemorrhage, unspecified; B02.9 Zoster without complications; E11.22 Type 2 diabetes mellitus with diabetic chronic kidney disease; E87.70 Fluid overload, unspecified; D63.1 Anemia in chronic kidney disease; I48.2 Chronic atrial fibrillation; I95.89 Other hypotension; I25.10 Atherosclerotic heart disease of native coronary artery without angina pectoris; I27.2 Other secondary pulmonary hypertension; I07.1 Rheumatic tricuspid insufficiency; Z99.2 Dependence on renal dialysis; Z82.49 Family history of ischemic heart disease and other diseases of the circulatory system; Z91.15 Patient's noncompliance with renal dialysis
CPT/HCPCS: 36415; 71010; 80053; 80061; 82550; 82553; 82962; 83036; 83880; 84484; 85025; 85610; 85730; 93005; 93010; 93306; 94760; 96374; 96375; J1170; J1815; J1940; J2270; J2405; J2930; J7030

== ENCOUNTER 2016-09-06 11:54 | Inpatient (IN) | payer MEDICARE ==
[2016-09-06] MEDS ORDERED: MORPHINE IV ONE (12:22)
[2016-09-06] MEDS ORDERED: PROVENTIL IH ONE (12:22)
[2016-09-06] MEDS ORDERED: ZOFRAN IV ONE (12:22)
[2016-09-06 12:33] LABS: Hematocrit 25.4 % (30.3-42.9); Hemoglobin 7.9 gm/dl (10.1-14.3); Mean Corpuscular HGB Conc 31 % (30-34); Mean Corpuscular Hemoglobin 30 pg (28-32); Mean Corpuscular Volume 98 fl (79-97); Platelet Count 187 K/mm3 (140-440); Red Blood Count 2.59 M/mm3 (3.65-5.03); White Blood Count 4.7 K/mm3 (4.5-11.0)
[2016-09-06 12:34] LABS: Basophils % (Auto) 0.8 % (0.0-1.8); Eosinophils % (Auto) 4.9 % (0.0-4.3)
[2016-09-06 12:49] LABS: Red Cell Distribution Width 22.6 % (13.2-15.2)
[2016-09-06 12:54] LABS: Albumin/Globulin Ratio 1.2 %; Bilirubin,Total 0.7 mg/dL (0.1-1.2); Calcium 8.3 mg/dL (8.4-10.2); Total Protein 7.3 g/dL (6.3-8.2)
[2016-09-06 12:57] LABS: INR 1.16 (0.87-1.13)
[2016-09-06 12:58] LABS: Partial Thromboplastin Time 30.5 Sec. (24.2-36.6)
--- NOTE | 2016-09-06 13:02 | XRay Report ---
Single view chest: Compared to 08/02/16. History: Nausea. Findings: Marked cardiomegaly. Trachea is midline. Mild pulmonary venous congestion. Stable pacemaker. No consolidation or pleural effusion. Impression: Probable early CHF.
--- NOTE | 2016-09-06 14:31 | Emergency Department Report ---
ED Chest Pain HPI - General Chief Complaint: Chest Pain Stated Complaint: COUGH /ANNALISE /N/V Time Seen by Provider: 09/06/16 12:11 Source: family, EMS Mode of arrival: Stretcher Limitations: Language Barrier - History of Present Illness Initial Comments: A 66-year-old female with past medical history of end-stage renal disease, hypertension, COPD has presented to the ED complaining of chest pain. Patient states pain started approximately 12 hours prior to ED arrival. Patient states pain is looking anterior chest wall. Pain is constant pressure sensation no relaxing or worsening factors. Patient also endorses: wheezing, and upper back pain. Patient's last dialysis was yesterday. MD Complaint: chest pain -: Gradual, hour(s) (12) Onset: during rest Pain Location: substernal Pain Radiation: none Severity: severe Severity scale (0 -10): 8 Quality: tightness, aching Consistency: constant Improves With: nothing Worsens With: nothing re: nausea, diaphoresis Other Symptoms: cough - Related Data Home Medications Medication Instructions Recorded Confirmed Last Taken Allopurinol [Zyloprim] 200 mg PO QDAY 09/24/15 08/09/16 04/17/16 Gabapentin [Neurontin] 200 mg PO TID 09/24/15 08/09/16 04/17/16 Midodrine [Proamatine] 2.5 mg PO TID 09/24/15 08/09/16 04/17/16 Macitentan [Opsumit] 10 mg PO DAILY 03/02/16 08/09/16 04/17/16 Furosemide [Lasix TAB] 80 mg PO QDAY 06/04/16 08/09/16 Unknown Diltiazem HCl [Diltiazem 24Hr ER] 1 cap PO QDAY 08/09/16 08/09/16 Unknown Gabapentin [Neurontin] 2 cap PO TID 08/09/16 08/09/16 Unknown HYDROcodone/APAP 5-325 [[place] 1 each PO Q4HR PRN 08/09/16 08/09/16 Unknown 5/325] Insulin Aspart Prot/Aspart(Nf) 5 units SC AC 08/09/16 08/09/16 Unknown [NovoLOG Mix 70/30 VIAL] Insulin Glargine [Lantus VIAL] 50 unit SC QHS 08/09/16 08/09/16 Unknown Macitentan [Opsumit] 10 mg PO QDAY 08/09/16 08/09/16 Unknown Riociguat [Adempas] 2 mg PO QDAY 08/09/16 08/09/16 Unknown Simvastatin [Zocor TAB] 1 tab PO QHS 08/09/16 08/09/16 Unknown Vit B Cplx #11/FA/C/Biot/Zn Ox 1 tab PO QDAY 08/09/16 08/09/16 Unknown [Dialyvite with Zinc Tablet] Previous Rx's Medication Instructions Recorded Last Taken Type Metolazone 10 mg PO QDAY #60 tablet 06/20/15 04/17/16 Rx valACYclovir [Valtrex] 1,000 mg PO Q72HR #7 tablet 08/06/16 Unknown Rx Gabapentin [Neurontin] 100 mg PO Q8HR #90 capsule 08/13/16 Unknown Rx Lidocaine [Lidocaine Cream] 3 patch TRANSDERMA QDAY #5 08/13/16 Unknown Rx cream..g. Pantoprazole [Protonix] 40 mg PO BID #60 tablet 08/13/16 Unknown Rx valACYclovir [Valtrex] 500 mg PO DAILY #7 tablet 08/13/16 Unknown Rx Allergies Allergy/AdvReac Type Severity Reaction Status Date / Time No Known Allergies Allergy Verified 09/06/16 12:20 Heart Score - HEART Score History: Highly suspicious EKG: Non-specific Age: 45-65 Risk factors: > 3 risk factors or hx of atherosclerotic disease Troponin: 1-3x normal limit HEART Score: 7 ED Review of Systems ROS: Stated complaint: COUGH /ANNALISE /N/V Other details as noted in HPI Constitutional: denies: chills, fever Eyes: denies: eye pain, eye discharge, vision change ENT: denies: ear pain, throat pain Respiratory: cough, wheezing. denies: shortness of breath Cardiovascular: chest pain, dyspnea on exertion, edema. denies: palpitations Endocrine: no symptoms reported Gastrointestinal: denies: abdominal pain, nausea, diarrhea Genitourinary: denies: urgency, dysuria, discharge Musculoskeletal: denies: back pain, joint swelling, arthralgia Skin: denies: rash, lesions Neurological: denies: headache, weakness, paresthesias Psychiatric: denies: anxiety, depression Hematological/Lymphatic: denies: easy bleeding, easy bruising ED Past Medical Hx - Past Medical History Previous Medical History?: Yes Hx Hypertension: Yes Hx CVA: Yes (4 cva's) Hx Heart Attack/AMI: No Hx Congestive Heart Failure: Yes Hx Diabetes: Yes Hx Deep Vein Thrombosis: No Hx Pulmonary Embolism: No Hx GERD: Yes Hx Liver Disease: No Hx Renal Disease: Yes Hx Sickle Cell Disease: No Hx Arthritis: Yes Hx Seizures: No Hx Kidney Stones: No Hx Asthma: Yes Hx COPD: Yes Hx Tuberculosis: No Hx Dementia: No Hx HIV: No Additional medical history: atrial fibrillation; Anemia - Surgical History Past Surgical History?: Yes Hx Coronary Stent: No Hx Open Heart Surgery: No Hx Pacemaker: Yes Hx Internal Defibrillator: Yes Hx Cholecystectomy: No Hx Appendectomy: No Hx Breast Surgery: No Additional Surgical History: fistula right arm - Social History Smoking Status: Never Smoker Substance Use Type: None - Medications Home Medications: Home Medications Medication Instructions Recorded Confirmed Last Taken Type Metolazone 10 mg PO QDAY #60 tablet 06/20/15 08/09/16 04/17/16 Rx Allopurinol [Zyloprim] 200 mg PO QDAY 09/24/15 08/09/16 04/17/16 History Gabapentin [Neurontin] 200 mg PO TID 09/24/15 08/09/16 04/17/16 History Midodrine [Proamatine] 2.5 mg PO TID 09/24/15 08/09/16 04/17/16 History Macitentan [Opsumit] 10 mg PO DAILY 03/02/16 08/09/16 04/17/16 History Furosemide [Lasix TAB] 80 mg PO QDAY 06/04/16 08/09/16 Unknown History valACYclovir [Valtrex] 1,000 mg PO Q72HR #7 tablet 08/06/16 Unknown Rx Diltiazem HCl [Diltiazem 24Hr ER] 1 cap PO QDAY 08/09/16 08/09/16 Unknown History Gabapentin [Neurontin] 2 cap PO TID 08/09/16 08/09/16 Unknown History HYDROcodone/APAP 5-325 [[place] 1 each PO Q4HR PRN 08/09/16 08/09/16 Unknown History 5/325] Insulin Aspart Prot/Aspart(Nf) 5 units SC AC 08/09/16 08/09/16 Unknown History [NovoLOG Mix 70/30 VIAL] Insulin Glargine [Lantus VIAL] 50 unit SC QHS 08/09/16 08/09/16 Unknown History Macitentan [Opsumit] 10 mg PO QDAY 08/09/16 08/09/16 Unknown History Riociguat [Adempas] 2 mg PO QDAY 08/09/16 08/09/16 Unknown History Simvastatin [Zocor TAB] 1 tab PO QHS 08/09/16 08/09/16 Unknown History Vit B Cplx #11/FA/C/Biot/Zn Ox 1 tab PO QDAY 08/09/16 08/09/16 Unknown History [Dialyvite with Zinc Tablet] Gabapentin [Neurontin] 100 mg PO Q8HR #90 capsule 08/13/16 Unknown Rx Lidocaine [Lidocaine Cream] 3 patch TRANSDERMA QDAY #5 08/13/16 Unknown Rx cream..g. Pantoprazole [Protonix] 40 mg PO BID #60 tablet 08/13/16 Unknown Rx valACYclovir [Valtrex] 500 mg PO DAILY #7 tablet 08/13/16 Unknown Rx ED Physical Exam - General Limitations: Language Barrier ED Course Vital Signs 09/06/16 09/06/16 09/06/16 11:56 12:00 12:11 Temperature 99 F Pulse Rate 50 L 71 Pulse Rate [ Right Lower Lobe] Respiratory 13 16 Rate Respiratory Rate [Right Lower Lobe] Blood Pressure 136/59 136/58 Blood Pressure [Left] O2 Sat by Pulse 98 96 98 Oximetry 09/06/16 09/06/16 09/06/16 12:24 12:25 12:37 Temperature 99 F Pulse Rate 71 Pulse Rate [ Right Lower Lobe] Respiratory 16 16 16 Rate Respiratory Rate [Right Lower Lobe] Blood Pressure Blood Pressure 136/58 [Left] O2 Sat by Pulse 98 98 Oximetry 09/06/16 09/06/16 13:00 14:07 Temperature Pulse Rate 58 L Pulse Rate [ 80 Right Lower Lobe] Respiratory 16 Rate Respiratory 18 Rate [Right Lower Lobe] Blood Pressure 131/58 Blood Pressure [Left] O2 Sat by Pulse 97 Oximetry - Reevaluation(s) Reevaluation #1: 09/06/16 14:25 After 2 hours in the ER symptoms have improved significantly, patient resting comfortably. Reevaluation #2: 09/06/16 14:[address] Lisa, nephrology, he agrees to admission and will consult on the patient during her inpatient admission. KENDELL score - Kendell Score Age > 65: (0) No Aspirin use within the Past 7 Days: (1) Yes 3 or more CAD Risk Factors: (1) Yes 2 or more Angina events in past 24 hrs: (1) Yes Known CAD with more than 50% Stenosis: (0) No Elevated Cardiac Markers: (0) No ST Deviation Greater than 0.5mm: (0) No KENDELL Score: 3 ED Medical Decision Making - Lab Data Result diagrams: 09/06/16 12:20 09/06/16 12:20 - EKG Data -: EKG Interpreted by Me Rate: tachycardia (105) - Medical Decision Making 66-year-old female with past medical history of end stage renal disease, COPD presenting to the ED complaining of chest pain, wheezing. Patient's workup is consistent for pulmonary edema. At this time she resting comfortably on room air and is not requiring supplemental oxygen nor BiPAP or intubation. I will admit patient to hospitalist. Dr. Jesus accepting. - Differential Diagnosis PNA, PE, dissection, respiratory arrest Critical Care Time: Yes Critical care attestation.: If time is entered above; I have spent that time in minutes in the direct care of this critically ill patient, excluding procedure time. 35 Critical Care Time: 35 ED Disposition Clinical Impression: Dyspnea, CHF (congestive heart failure), ESRD (end stage renal disease) on dialysis Disposition: OP ADMIT IP TO THIS HOSP Is pt being admited?: Yes Does the pt Need Aspirin: No Condition: Stable Referrals: PRIMARY CARE, [Primary Care Provider] - 3-5 Days
--- NOTE | 2016-09-06 14:33 | Admit Criteria Form ---
Admission Criteria Documentation: CHEST PAIN Clinical Indications for Admission to Inpatient Care (Place 'X' for any and all applicable criteria): Admission is indicated for chest pain and ANY ONE of the following(1)(2)(3)(4)(5 ): [ X]I. Angina with acute coronary syndrome (Also use Myocardial Infarction or Angina guideline) [ ]II. Hemodynamic instability [ ]III. Angina needing acute intervention as indicated by ALL of the following( 11)(12): [ ]a) Unstable angina is present as indicated by angina that is ANY ONE of the following: [X]i) New onset [ ]ii) Nocturnal [ ]iii) Prolonged at rest [ ]iv) Progressive [ ]b) Angina warrants acute intervention as indicated by ANY ONE of the following: [ ]i) Recurrent angina (e.g, not responding as previously to treatment) [ ]ii) Angina at rest or with low-level activities despite initial medical therapy [ ]iii) New or presumably new ST-segment depression on ECG [ ]iv) Signs or symptoms of heart failure (eg, dyspnea, pulmonary edema) [ ]v) New or worsening mitral regurgitation [ ]vi) Hemodynamic instability [ ]vii) Dangerous arrhythmia (eg, sustained ventricular tachycardia) [ ]viii) History of percutaneous coronary intervention within 6 months [ ]ix) History of coronary artery bypass graft surgery [ ]x) KENDELL risk score of 2 or greater[A] [ ]xi) History of Diabetes(14) [ ]xii) High-risk cardiac ischemia findings on noninvasive testing (e.g, echocardiogram, treadmill testing, nuclear scan) [ ]xiii) Chronic renal insufficiency (ie, estimated GFR less than 60 mL/min/1.732m) [ ]xiv) Left ventricular ejection fraction less than 40% [ ]IV. Evidence of NV (eg, cardiac biomarkers positive, ST-segment elevation on ECG) also use Myocardial Infarction Criteria Form. [ ]V. Pulmonary edema [ ]. Respiratory distress [ ]VII. Chest pain indicative of serious diagnosis other than coronary artery disease (eg, aortic dissection) [ ]VIII. Contraindications and/or Inappropriate clinical situations for Observational Care in patients with Chest Pain, when ANY ONE of the following is required: [ ]a) Patient with risk factor for pulmonary embolism, acute coronary syndrome and myocardial infarction (18) [ ]b) Patient with Pulmonary embolism require an average LOS of 4.3 days, therefore emergency department observation management is inappropriate 18,23 [ ]c) Painful condition/s in the elderly, have the highest rate of recidivism after emergency department observation management (10.8%) 20,21,22 [ ]d) Elevated cardiac biomarker requires intensive and exhaustive care (19) [ X]IX. General contraindications and/or Inappropriate clinical situations for Observational Care in patients with Chest Pain, when ANY ONE of the following is required: [ X]a) Prediction of prolongation of LOS based on ANY ONE of the following may be considered as a contraindication for observational care 2, 3, 4, 5, 6, 7, 8, 9, 10, 11 [ ]i) Age > 65 yrs. [X ]ii) Patient arriving by ambulance [ ]iii) Patient with high acuity [ ]iv) Patient requiring vital sign monitoring [ ]v) Patient on IV medication [ ]b) Systolic blood pressures 180mmHg 3,12 [ ]c) Patient with altered mental status including delirium and other alteration of consciousness, (3) [ ]d) Patient whose discharge disposition will be to a group home home or rehabilitation home should not be managed in Emergency Department Observation Unit. CMS rule requires 3 days hospital stay before such placement. 3,13 [ ]e) Patient with failure to thrive due to broad array of etiologies 3,16,17 [ ]f) Inability to ambulate 3,14 Extended stay beyond goal length of stay may be needed for (1)(28): [ ]a) Specific condition diagnosed after evaluation (eg, pulmonary embolism, aortic dissection) [ ]b) Unstable angina [ ]c) Continued suspicion of acute coronary syndrome with inability to complete needed cardiac evaluation (eg, patient clinically unable to undergo stress testing) [ ]d) Myocardial infarction (Contents from ANGINA and CHEST PAIN clinical indications for admission to inpatient care have been integrated in this form) The original [employer] content created by [employer] has been revised. The portions of the content which have been revised are identified through the use of italic text or in bold, and [facility] [employer] has neither reviewed nor approved the modified material. All other unmodified content is copyright [employer]. Please see references footnoted in the original [facility] edition 2016 Admission Criteria Met: Yes
[2016-09-06] MEDS: DILAUDID IV PRN (18:35)
[2016-09-06] MEDS ORDERED: NACL 0.9% 100 ML IV PRN (19:01)
[2016-09-06] MEDS ORDERED: IMODIUM PO PRN (20:40)
[2016-09-06] MEDS ORDERED: ZOFRAN PO PRN (20:40)
--- NOTE | 2016-09-06 20:40 | History and Physical Report ---
History of Present Illness Date of examination: 09/06/16 Date of admission: 09/06/16 18:19 Chief complaint: L sided Chest pain for 12 hrs since AM History of present illness: PATRICIA: A 66-year-old female with past medical history of end-stage renal disease, hypertension, COPD presented to the ED complaining of chest pain. Patient states pain started approximately 12 hours prior to ED arrival. Patient states pain is looking anterior chest wall. Pain is constant pressure sensation no relaxing or worsening factors. Patient also endorses: wheezing, and upper back pain. Patient's last dialysis was yesterday. MD Complaint: chest pain for 12 hrs.Gradual onset.Non radiating.Pain 8/10 HEART Score History: Highly suspicious EKG: Non-specific Age: 45-65 Risk factors: > 3 risk factors or hx of atherosclerotic disease Troponin: 1-3x normal limit HEART Score: 7 - Past Medical History Previous Medical History?: Yes Hx Hypertension: Yes Hx CVA: Yes (4 cva's) Hx Heart Attack/AMI: No Hx Congestive Heart Failure: Yes Hx Diabetes: Yes Hx Deep Vein Thrombosis: No Hx Pulmonary Embolism: No Hx GERD: Yes Hx Liver Disease: No Hx Renal Disease: Yes Hx Sickle Cell Disease: No Hx Arthritis: Yes Hx Seizures: No Hx Kidney Stones: No Hx Asthma: Yes Hx COPD: Yes Hx Tuberculosis: No Hx Dementia: No Hx HIV: No Additional medical history: atrial fibrillation; Anemia - Surgical History Past Surgical History?: Yes Hx Coronary Stent: No Hx Open Heart Surgery: No Hx Pacemaker: Yes Hx Internal Defibrillator: Yes Hx Cholecystectomy: No Hx Appendectomy: No Hx Breast Surgery: No Additional Surgical History: fistula right arm - Social History Smoking Status: Never Smoker Substance Use Type: None - Medications Home Medications: Home Medications Medication Instructions Recorded Confirmed Last Taken Type Metolazone 10 mg PO QDAY #60 tablet 06/20/15 08/09/16 04/17/16 Rx Allopurinol [Zyloprim] 200 mg PO QDAY 09/24/15 08/09/16 04/17/16 History Gabapentin [Neurontin] 200 mg PO TID 09/24/15 08/09/16 04/17/16 History Midodrine [Proamatine] 2.5 mg PO TID 09/24/15 08/09/16 04/17/16 History Macitentan [Opsumit] 10 mg PO DAILY 03/02/16 08/09/16 04/17/16 History Furosemide [Lasix TAB] 80 mg PO QDAY 06/04/16 08/09/16 Unknown History valACYclovir [Valtrex] 1,000 mg PO Q72HR #7 tablet 08/06/16 Unknown Rx Diltiazem HCl [Diltiazem 24Hr ER] 1 cap PO QDAY 08/09/16 08/09/16 Unknown History Gabapentin [Neurontin] 2 cap PO TID 08/09/16 08/09/16 Unknown History HYDROcodone/APAP 5-325 [[place] 1 each PO Q4HR PRN 08/09/16 08/09/16 Unknown History 5/325] Insulin Aspart Prot/Aspart(Nf) 5 units SC AC 08/09/16 08/09/16 Unknown History [NovoLOG Mix 70/30 VIAL] Insulin Glargine [Lantus VIAL] 50 unit SC QHS 08/09/16 08/09/16 Unknown History Macitentan [Opsumit] 10 mg PO QDAY 08/09/16 08/09/16 Unknown History Riociguat [Adempas] 2 mg PO QDAY 08/09/16 08/09/16 Unknown History Simvastatin [Zocor TAB] 1 tab PO QHS 08/09/16 08/09/16 Unknown History Vit B Cplx #11/FA/C/Biot/Zn Ox 1 tab PO QDAY 08/09/16 08/09/16 Unknown History [Dialyvite with Zinc Tablet] Gabapentin [Neurontin] 100 mg PO Q8HR #90 capsule 08/13/16 Unknown Rx Lidocaine [Lidocaine Cream] 3 patch TRANSDERMA QDAY #5 08/13/16 Unknown Rx cream..g. Pantoprazole [Protonix] 40 mg PO BID #60 tablet 08/13/16 Unknown Rx valACYclovir [Valtrex] 500 mg PO DAILY #7 tablet 08/13/16 Unknown Rx Review of Systems ROS: Stated complaint: COUGH /ANNALISE /N/V Other details as noted in HPI Constitutional: denies: chills, fever Eyes: denies: eye pain, eye discharge, vision change ENT: denies: ear pain, throat pain Respiratory: cough, wheezing. denies: shortness of breath Cardiovascular: chest pain, dyspnea on exertion, edema. denies: palpitations Endocrine: no symptoms reported Gastrointestinal: denies: abdominal pain, nausea, diarrhea Genitourinary: denies: urgency, dysuria, discharge Musculoskeletal: denies: back pain, joint swelling, arthralgia Skin: denies: rash, lesions Neurological: denies: headache, weakness, paresthesias Psychiatric: denies: anxiety, depression Hematological/Lymphatic: denies: easy bleeding, easy bruising Medications and Allergies Allergies Allergy/AdvReac Type Severity Reaction Status Date / Time No Known Allergies Allergy Verified 09/06/16 12:20 Home Medications Medication Instructions Recorded Confirmed Last Taken Type Metolazone 10 mg PO QDAY #60 tablet 06/20/15 09/06/16 09/05/16 Rx Allopurinol [Zyloprim] 100 mg PO QDAY 09/24/15 09/06/16 09/05/16 History Gabapentin [Neurontin] 200 mg PO TID 09/24/15 09/06/16 09/05/16 History Midodrine [Proamatine] 2.5 mg PO TID 09/24/15 09/06/16 09/05/16 History Furosemide [Lasix TAB] 80 mg PO QDAY 06/04/16 09/06/16 09/05/16 History Macitentan [Opsumit] 10 mg PO QDAY 08/09/16 09/06/16 09/05/16 History Vit B Cplx #11/FA/C/Biot/Zn Ox 1 tab PO QDAY 08/09/16 09/06/16 09/05/16 History [Dialyvite with Zinc Tablet] Pantoprazole [Protonix] 40 mg PO BID #60 tablet 08/13/16 09/06/16 09/05/16 Rx [id number]-W-Ggcihoawasule [Beano] 1 each PO PRN 09/06/16 09/06/16 Unknown History Benzonatate [Tessalon Perles] 100 mg PO Q8HR 09/06/16 09/06/16 09/05/16 History Calcium Phosphate Trib/Vit D3 1 each PO DAILY 09/06/16 09/06/16 09/05/16 History [Calcium + Vitamin D3 Gummies] Loperamide [Imodium] 2 mg PO DAILY PRN 09/06/16 09/06/16 09/05/16 History Megestrol [Megace] 20 mg PO BID 09/06/16 09/06/16 09/05/16 History Ondansetron [Zofran TAB] 4 mg PO Q8HR PRN 09/06/16 09/06/16 09/05/16 History Sertraline [Zoloft] 50 mg PO QDAY 09/06/16 09/06/16 09/05/16 History Warfarin Sodium [Coumadin] 3 mg PO QDAY 09/06/16 09/06/16 09/05/16 History Active Meds: Active Medications Hydromorphone HCl (Dilaudid) 0.5 mg IV Q3H PRN PRN Reason: Pain , Severe (7-10) Last Admin: 09/06/16 18:35 Dose: 0.5 mg Sodium Chloride (Nacl 0.9%) 100 mls @ 999 mls/hr IV BUFFY PRN PRN Reason: Hypotension Exam - Physical Exam Narrative exam: Lying comfortably - Constitutional Vitals: Temp Pulse Resp BP Pulse Ox 99 F 187 H 16 129/49 99 09/06/16 12:24 09/06/16 18:00 09/06/16 18:35 09/06/16 18:00 09/06/16 18:00 General appearance: Present: no acute distress, well-nourished - EENT Eyes: Present: PERRL ENT: hearing intact, clear oral mucosa - Neck Neck: Present: supple, normal ROM - Respiratory Respiratory effort: normal Respiratory: bilateral: CTA - Cardiovascular Heart rate: 76 Heart Sounds: Present: S1 & S2. Absent: rub, click - Extremities Extremities: no ischemia, pulses intact, pulses symmetrical, No edema Peripheral Pulses: within normal limits - Abdominal General gastrointestinal: Present: soft, non-tender, non-distended, normal bowel sounds Female genitourinary: Present: normal - Rectal Rectal Exam: deferred - Integumentary Integumentary: Present: clear, warm, dry - Musculoskeletal Musculoskeletal: gait normal, strength equal bilaterally - Psychiatric Psychiatric: appropriate mood/affect, intact judgment & insight - Neurologic Neurologic: CNII-XII intact, moves all extremities, gait normal - Allied Health Allied health notes reviewed: nursing Results - Labs CBC & Chem 7: 09/06/16 12:20 09/06/16 12:20 Labs: Laboratory Last Values WBC 4.7 K/mm3 (4.5-11.0) 09/06/16 12:20 RBC 2.59 M/mm3 (3.65-5.03) L 09/06/16 12:20 Hgb 7.9 gm/dl (10.1-14.3) L 09/06/16 12:20 Hct 25.4 % (30.3-42.9) L 09/06/16 12:20 MCV 98 fl (79-97) H 09/06/16 12:20 MCH 30 pg (28-32) 09/06/16 12:20 MCHC 31 % (30-34) 09/06/16 12:20 RDW 22.6 % (13.2-15.2) H 09/06/16 12:20 Plt Count 187 K/mm3 (140-440) 09/06/16 12:20 Lymph % (Auto) 10.4 % (13.4-35.0) L 09/06/16 12:20 [place] % (Auto) 7.8 % (0.0-7.3) H 09/06/16 12:20 Eos % (Auto) 4.9 % (0.0-4.3) H 09/06/16 12:20 Baso % (Auto) 0.8 % (0.0-1.8) 09/06/16 12:20 Lymph # 0.5 K/mm3 (1.2-5.4) L 09/06/16 12:20 [place] # 0.4 K/mm3 (0.0-0.8) 09/06/16 12:20 Eos # 0.2 K/mm3 (0.0-0.4) 09/06/16 12:20 Baso # 0.0 K/mm3 (0.0-0.1) 09/06/16 12:20 Seg Neutrophils % 76.1 % (40.0-70.0) H 09/06/16 12:20 Seg Neutrophils # 3.5 K/mm3 (1.8-7.7) 09/06/16 12:20 PT 14.7 Sec. (12.2-14.9) 09/06/16 12:35 INR 1.16 (0.87-1.13) H 09/06/16 12:35 APTT 30.5 Sec. (24.2-36.6) 09/06/16 12:35 Sodium 137 mmol/L (137-145) 09/06/16 12:20 Potassium 4.0 mmol/L (3.6-5.0) 09/06/16 12:20 Chloride 95.0 mmol/L (98-107) L 09/06/16 12:20 Carbon Dioxide 27 mmol/L (22-30) 09/06/16 12:20 Anion Gap 19 mmol/L 09/06/16 12:20 BUN 19 mg/dL (7-17) H 09/06/16 12:20 Creatinine 3.8 mg/dL (0.7-1.2) H 09/06/16 12:20 Estimated GFR 12 ml/min 09/06/16 12:20 BUN/Creatinine Ratio 5.00 % 09/06/16 12:20 Glucose 154 mg/dL (65-100) H 09/06/16 12:20 Lactic Acid 1.30 mmol/L (0.7-2.0) 09/06/16 12:35 Calcium 8.3 mg/dL (8.4-10.2) L 09/06/16 12:20 Total Bilirubin 0.70 mg/dL (0.1-1.2) 09/06/16 12:20 AST 16 units/L (5-40) 09/06/16 12:20 ALT 12 units/L (7-56) 09/06/16 12:20 Alkaline Phosphatase 170 units/L (35-129) H 09/06/16 12:20 Troponin T 0.043 ng/mL (0.00-0.029) H 09/06/16 12:35 NT-Pro-B Natriuret Pep 7093 pg/mL (0-900) H 09/06/16 12:35 Total Protein 7.3 g/dL (6.3-8.2) 09/06/16 12:20 Albumin 4.0 g/dL (3.9-5) 09/06/16 12:20 Albumin/Globulin Ratio 1.2 % 09/06/16 12:20 Triglycerides 45 mg/dL (2-149) 09/06/16 12:35 Cholesterol 102 mg/dL (50-199) 09/06/16 12:35 LDL Cholesterol Direct 41 mg/dL (50-130) L 09/06/16 12:35 HDL Cholesterol 52 mg/dL (40-59) 09/06/16 12:35 Cholesterol/HDL Ratio 1.96 % 09/06/16 12:35 Lipase 27 units/L (13-60) 09/06/16 12:35 Short CBC 09/06/16 Range/Units 12:20 WBC 4.7 (4.5-11.0) K/mm3 Hgb 7.9 L (10.1-14.3) gm/dl Hct 25.4 L (30.3-42.9) % Plt Count 187 (140-440) K/mm3 BMP 09/06/16 12:20 Sodium 137 Potassium 4.0 Chloride 95.0 L Carbon Dioxide 27 BUN 19 H Creatinine 3.8 H Glucose 154 H Calcium 8.3 L Cardiac Enzymes 09/06/16 Range/Units 12:35 Troponin T 0.043 H (0.00-0.029) ng/mL Liver Function 09/06/16 Range/Units 12:20 Total Bilirubin 0.70 (0.1-1.2) mg/dL AST 16 (5-40) units/L ALT 12 (7-56) units/L Alkaline Phosphatase 170 H (35-129) units/L Albumin 4.0 (3.9-5) g/dL - Imaging and Cardiology EKG: report reviewed Chest x-ray: report reviewed Assessment and Plan Advance Directives: Yes (Full code) VTE prophylaxis?: Chemical Plan of care discussed with patient/family: Yes - Patient Problems (1) Acute coronary syndrome Current Visit: Yes Status: Acute Plan to address problem: Chest pain r/o UT protocol.Serial cardiac enzymes and Lexiscan (2) ESRD (end stage renal disease) on dialysis Current Visit: Yes Status: Chronic Plan to address problem: Nephrology consulted for continuation of HD (3) Atrial fibrillation Current Visit: No Status: Chronic Qualifiers: Atrial fibrillation type: chronic Qualified Code(s): I48.2 - Chronic atrial fibrillation Plan to address problem: Cont WArfarin (4) Gout Current Visit: Yes Status: Inactive Qualifiers: Gout site: G Gout etiology: G Encounter type: E Chronicity: C Laterality: L Presence of tophus: P Plan to address problem: Cont Allopurinol (5) Hypotension Current Visit: Yes Status: Chronic Qualifiers: Hypotension type: hemodialysis-associated hypotension Trimester: T Qualified Code(s): I95.3 - Hypotension of hemodialysis Plan to address problem: on Midodrine (6) DVT prophylaxis Current Visit: Yes Status: Acute Plan to address problem: on Heparin
[2016-09-06] MEDS ORDERED: ALPHA D GALACTOSIDASE PO SCH (20:45)
[2016-09-07] MEDS: LASIX PO SCH ×2 (00:10→11:58)
[2016-09-07] MEDS: ZAROXOLYN PO SCH ×2 (00:11→11:58)
[2016-09-07] MEDS: MEGACE PO SCH ×3 (00:13→21:54)
[2016-09-07] MEDS: PROTONIX PO SCH ×3 (00:13→21:54)
[2016-09-07] MEDS: ZYLOPRIM PO SCH ×2 (00:17→11:58)
[2016-09-07] MEDS: DILAUDID IV PRN ×2 (03:44→11:50)
[2016-09-07 07:55] LABS: INR 1.15 (0.87-1.13)
[2016-09-07] MEDS ORDERED: LEXISCAN IV ONE (08:09)
[2016-09-07] MEDS ORDERED: MACITENTAN 10 MG PO SCH (10:00)
--- NOTE | 2016-09-07 10:39 | Consultation ---
History of Present Illness - Reason for Consult Consult date: 09/07/16 end stage renal disease Requesting physician: DM IRVIN - History of Present Illness A 66-year-old female with past medical history of end-stage renal disease, hypertension, COPD presented to the ED complaining of chest pain. Patient states pain started approximately 12 hours prior to ED arrival. Patient states pain is looking anterior chest wall. Pain is constant pressure sensation no relaxing or worsening factors. Patient also endorses: wheezing, and upper back pain. Patient's last dialysis was yesterday. Past History Past Medical History: anemia, COPD, dialysis, ESRD, hypertension, renal failure Past Surgical History: Other (dialysis access placement) Social history: denies: prescription drug abuse, IV drug use Family history: hypertension Medications and Allergies Allergies Allergy/AdvReac Type Severity Reaction Status Date / Time No Known Allergies Allergy Verified 09/06/16 12:20 Home Medications Medication Instructions Recorded Confirmed Last Taken Type Metolazone 10 mg PO QDAY #60 tablet 06/20/15 09/06/16 09/05/16 Rx Allopurinol [Zyloprim] 100 mg PO QDAY 09/24/15 09/06/16 09/05/16 History Gabapentin [Neurontin] 200 mg PO TID 09/24/15 09/06/16 09/05/16 History Midodrine [Proamatine] 2.5 mg PO TID 09/24/15 09/06/16 09/05/16 History Furosemide [Lasix TAB] 80 mg PO QDAY 06/04/16 09/06/16 09/05/16 History Macitentan [Opsumit] 10 mg PO QDAY 08/09/16 09/06/16 09/05/16 History Vit B Cplx #11/FA/C/Biot/Zn Ox 1 tab PO QDAY 08/09/16 09/06/16 09/05/16 History [Dialyvite with Zinc Tablet] Pantoprazole [Protonix] 40 mg PO BID #60 tablet 08/13/16 09/06/16 09/05/16 Rx Zaqtg-X-Wozakntxedtnu [Beano] 1 each PO PRN 09/06/16 09/06/16 Unknown History Benzonatate [Tessalon Perles] 100 mg PO Q8HR 09/06/16 09/06/16 09/05/16 History Calcium Phosphate Trib/Vit D3 1 each PO DAILY 09/06/16 09/06/16 09/05/16 History [Calcium + Vitamin D3 Gummies] Loperamide [Imodium] 2 mg PO DAILY PRN 09/06/16 09/06/16 09/05/16 History Megestrol [Megace] 20 mg PO BID 09/06/16 09/06/16 09/05/16 History Ondansetron [Zofran TAB] 4 mg PO Q8HR PRN 09/06/16 09/06/16 09/05/16 History Sertraline [Zoloft] 50 mg PO QDAY 09/06/16 09/06/16 09/05/16 History Warfarin Sodium [Coumadin] 3 mg PO QDAY 09/06/16 09/06/16 09/05/16 History Active Meds: Active Medications Allopurinol (Zyloprim) 100 mg PO QDAY [facility] Last Admin: 09/07/16 00:17 Dose: 100 mg Furosemide (Lasix) 80 mg PO QDAY [facility] Last Admin: 09/07/16 00:10 Dose: 80 mg Gabapentin (Neurontin) 200 mg PO TID [facility] Heparin Sodium (Porcine) (Heparin) 5,000 unit SUB-Q Q12HR [facility] Hydromorphone HCl (Dilaudid) 0.5 mg IV Q3H PRN PRN Reason: Pain , Severe (7-10) Last Admin: 09/07/16 03:44 Dose: 0.5 mg Sodium Chloride (Nacl 0.9%) 100 mls @ 999 mls/hr IV BUFFY PRN PRN Reason: Hypotension Loperamide HCl (Imodium) 2 mg PO DAILY PRN PRN Reason: Diarrhea Megestrol Acetate (Megace) 20 mg PO BID [facility] Last Admin: 09/07/16 00:13 Dose: 20 mg Metolazone (Zaroxolyn) 10 mg PO QDAY [facility] Last Admin: 09/07/16 00:11 Dose: 10 mg Midodrine (Proamatine) 2.5 mg PO TID [facility] Miscellaneous Medication (Macitentan [Opsumit]) 10 mg PO QDAY [facility] Ondansetron HCl (Zofran) 4 mg PO Q8H PRN PRN Reason: Nausea Last Admin: 09/07/16 00:12 Dose: 4 mg Pantoprazole Sodium (Protonix) 40 mg PO BID [facility] Last Admin: 09/07/16 00:13 Dose: 40 mg Sertraline HCl (Zoloft) 50 mg PO QDAY [facility] Warfarin Sodium (Coumadin) 3 mg PO QDAY@1700 [facility] Review of Systems Constitutional: fatigue, weakness, malaise Cardiovascular: chest pain, shortness of breath Respiratory: shortness of breath Exam - Vital Signs Vital signs: Vital Signs Pulse Ox 98 09/06/16 11:56 - Physical Exam Narrative exam: General appearance: well-developed, well-nourished, appears stated age EENT: PERRL, mucous membranes moist Neck: no JVD, no thyromegaly, no carotid bruit, supple Respiratory: Present: Rales (fine basal crackles) Cardiology: irregularly irregular, normal heart rate, S1S2, no murmurs Gastrointestinal: normal, normoactive bowel sounds Integumentary: other (raw area noted in her right flank and gluteal area. AV graft in her right upper arm. Good bruit and thrill) Results - Lab Results 09/06/16 12:20 09/06/16 12:20 Most recent lab results Calcium 8.3 mg/dL (8.4-10.2) L 09/06/16 12:20 Assessment and Plan Impression * Chest pain * End-stage renal disease on maintenance hemodialysis * anemia * volume overload * Herpes zoster * Chronic atrial fibrillation * Hypertension * Diabetes Recommendations * HD q MWF and prn * uf as tolerated * Renal diet * strict i/os * Monitor H&H and transfuse as needed * No IV, BP or venipuncture access arm * Adjust diet and meds for ESRD state
--- NOTE | 2016-09-07 11:11 | Progress Note ---
Assessment and Plan Assessment and plan: --Chest pain/evaluation for acute coronary syndrome Stress test negative for reversible ischemia, chest pain may be noncardiac/ costochondritis Supportive care --End-stage renal disease on hemodialysis Nephrology following, hemodialysis per schedule --History of gout; stable on allopurinol --Atrial fibrillation; rate controlled, continue current beta blockers --Chronic anticoagulation; Coumadin was held secondary to GI bleeding during last admission --Hypertension; patient's blood pressures in the lower range, continue midodrine and closely monitor --DVT prophylaxis with heparin --Full CODE STATUS Closely monitor the patient and adjust the management as needed I discussed the patient's condition and treatment plan in detail with the patient as well as the family Possible discharge in 1-2 days if stable History Interval history: Patient seen and evaluated medical records reviewed No new events reported by the nursing staff Patient feels better, underwent stress test Denies chest pain or shortness of breath Hospitalist Physical - Constitutional Vitals: Temp Pulse Resp BP Pulse Ox 98.6 F 70 18 104/57 100 09/07/16 07:20 09/07/16 08:51 09/07/16 07:20 09/07/16 07:20 09/07/16 07:20 General appearance: Present: no acute distress, well-nourished - EENT Eyes: Present: PERRL, EOM intact - Neck Neck: Present: supple, normal ROM - Respiratory Respiratory effort: normal Respiratory: bilateral: diminished, negative: rales, rhonchi, wheezing - Cardiovascular Rhythm: regular Heart Sounds: Present: S1 & S2 - Extremities Extremities: no ischemia, pulses intact, pulses symmetrical Peripheral Pulses: within normal limits - Abdominal General gastrointestinal: soft, non-tender, non-distended, normal bowel sounds - Integumentary Integumentary: Present: clear, warm - Psychiatric Psychiatric: appropriate mood/affect, cooperative - Neurologic Neurologic: CNII-XII intact, moves all extremities Results - Labs CBC & Chem 7: 09/06/16 12:20 09/06/16 12:20 Labs: Laboratory Last Values WBC 4.7 K/mm3 (4.5-11.0) 09/06/16 12:20 RBC 2.59 M/mm3 (3.65-5.03) L 09/06/16 12:20 Hgb 7.9 gm/dl (10.1-14.3) L 09/06/16 12:20 Hct 25.4 % (30.3-42.9) L 09/06/16 12:20 MCV 98 fl (79-97) H 09/06/16 12:20 MCH 30 pg (28-32) 09/06/16 12:20 MCHC 31 % (30-34) 09/06/16 12:20 RDW 22.6 % (13.2-15.2) H 09/06/16 12:20 Plt Count 187 K/mm3 (140-440) 09/06/16 12:20 Lymph % (Auto) 10.4 % (13.4-35.0) L 09/06/16 12:20 [place] % (Auto) 7.8 % (0.0-7.3) H 09/06/16 12:20 Eos % (Auto) 4.9 % (0.0-4.3) H 09/06/16 12:20 Baso % (Auto) 0.8 % (0.0-1.8) 09/06/16 12:20 Lymph # 0.5 K/mm3 (1.2-5.4) L 09/06/16 12:20 [place] # 0.4 K/mm3 (0.0-0.8) 09/06/16 12:20 Eos # 0.2 K/mm3 (0.0-0.4) 09/06/16 12:20 Baso # 0.0 K/mm3 (0.0-0.1) 09/06/16 12:20 Seg Neutrophils % 76.1 % (40.0-70.0) H 09/06/16 12:20 Seg Neutrophils # 3.5 K/mm3 (1.8-7.7) 09/06/16 12:20 PT 14.6 Sec. (12.2-14.9) 09/07/16 07:25 INR 1.15 (0.87-1.13) H 09/07/16 07:25 APTT 30.5 Sec. (24.2-36.6) 09/06/16 12:35 Sodium 137 mmol/L (137-145) 09/06/16 12:20 Potassium 4.0 mmol/L (3.6-5.0) 09/06/16 12:20 Chloride 95.0 mmol/L (98-107) L 09/06/16 12:20 Carbon Dioxide 27 mmol/L (22-30) 09/06/16 12:20 Anion Gap 19 mmol/L 09/06/16 12:20 BUN 19 mg/dL (7-17) H 09/06/16 12:20 Creatinine 3.8 mg/dL (0.7-1.2) H 09/06/16 12:20 Estimated GFR 12 ml/min 09/06/16 12:20 BUN/Creatinine Ratio 5.00 % 09/06/16 12:20 Glucose 154 mg/dL (65-100) H 09/06/16 12:20 POC Glucose 116 (70-105) H 09/07/16 07:46 Lactic Acid 1.30 mmol/L (0.7-2.0) 09/06/16 12:35 Calcium 8.3 mg/dL (8.4-10.2) L 09/06/16 12:20 Total Bilirubin 0.70 mg/dL (0.1-1.2) 09/06/16 12:20 AST 16 units/L (5-40) 09/06/16 12:20 ALT 12 units/L (7-56) 09/06/16 12:20 Alkaline Phosphatase 170 units/L (35-129) H 09/06/16 12:20 Troponin T 0.043 ng/mL (0.00-0.029) H 09/06/16 12:35 NT-Pro-B Natriuret Pep 7093 pg/mL (0-900) H 09/06/16 12:35 Total Protein 7.3 g/dL (6.3-8.2) 09/06/16 12:20 Albumin 4.0 g/dL (3.9-5) 09/06/16 12:20 Albumin/Globulin Ratio 1.2 % 09/06/16 12:20 Triglycerides 45 mg/dL (2-149) 09/06/16 12:35 Cholesterol 102 mg/dL (50-199) 09/06/16 12:35 LDL Cholesterol Direct 41 mg/dL (50-130) L 09/06/16 12:35 HDL Cholesterol 52 mg/dL (40-59) 09/06/16 12:35 Cholesterol/HDL Ratio 1.96 % 09/06/16 12:35 Lipase 27 units/L (13-60) 09/06/16 12:35
[2016-09-07] MEDS: NEURONTIN PO SCH ×3 (11:57→21:54)
[2016-09-07] MEDS: HEPARIN SUB-Q SCH ×2 (11:57→21:55)
[2016-09-07] MEDS: PROAMATINE PO SCH ×3 (11:57→21:54)
[2016-09-07] MEDS: ZOLOFT PO SCH (11:58)
[2016-09-07] MEDS ORDERED: NACL 0.9 (PRIMING MACHINE ONLY DIALYSIS) MC ONE (13:33)
[2016-09-07] MEDS: COUMADIN PO SCH ×2 (16:45→17:02)
[2016-09-07 20:03] LABS: Creatine Kinase MB 2.2 ng/mL (0.0-4.0)
[2016-09-08 06:01] LABS: INR 1.14 (0.87-1.13)
[2016-09-08] MEDS: NEURONTIN PO SCH ×3 (10:10→21:25)
[2016-09-08] MEDS: LASIX PO SCH (10:11)
[2016-09-08] MEDS: ZAROXOLYN PO SCH (10:11)
[2016-09-08] MEDS: ZOLOFT PO SCH (10:11)
[2016-09-08] MEDS: ZYLOPRIM PO SCH (10:11)
[2016-09-08] MEDS: PROTONIX PO SCH ×2 (10:11→21:25)
[2016-09-08] MEDS: HEPARIN SUB-Q SCH ×2 (10:12→21:26)
[2016-09-08] MEDS: PROAMATINE PO SCH ×3 (10:15→21:25)
[2016-09-08] MEDS: MEGACE PO SCH ×2 (10:15→21:25)
[2016-09-08] MEDS: NOVOLOG SUB-Q SCH ×3 (12:36→23:12)
--- NOTE | 2016-09-08 13:11 | Progress Note ---
Assessment and Plan Impression * Chest pain * End-stage renal disease on maintenance hemodialysis * anemia * volume overload * Herpes zoster * Chronic atrial fibrillation * Hypertension * Diabetes Recommendations * HD q MWF and prn * uf as tolerated * Renal diet * strict i/os * Monitor H&H and transfuse as needed * No IV, BP or venipuncture access arm * Adjust diet and meds for ESRD state Subjective Date of service: 09/08/16 Principal diagnosis: esrd Interval history: resting well in bed today Objective - Exam Narrative Exam: General appearance: well-developed, well-nourished, appears stated age EENT: PERRL, mucous membranes moist Neck: no JVD, no thyromegaly, no carotid bruit, supple Respiratory: Present: Rales (fine basal crackles) Cardiology: irregularly irregular, normal heart rate, S1S2, no murmurs Gastrointestinal: normal, normoactive bowel sounds Integumentary: other (raw area noted in her right flank and gluteal area. AV graft in her right upper arm. Good bruit and thrill) - Vital Signs Vital signs: Vital Signs - 12hr 09/08/16 09/08/16 09/08/16 04:43 09:26 10:00 Temperature 99.0 F 98.2 F Pulse Rate 70 Pulse Rate [ 70 70 Left] Respiratory 20 18 Rate Blood Pressure 111/56 110/56 [Left Arm] O2 Sat by Pulse 100 95 Oximetry 09/08/16 11:00 Temperature Pulse Rate Pulse Rate [ Left] Respiratory Rate Blood Pressure [Left Arm] O2 Sat by Pulse 97 Oximetry - Lab 09/06/16 12:20 09/06/16 12:20 Most recent lab results Calcium 8.3 mg/dL (8.4-10.2) L 09/06/16 12:20
--- NOTE | 2016-09-08 14:22 | Progress Note ---
Assessment and Plan Assessment and plan: --Chest pain/evaluation for acute coronary syndrome Stress test negative for reversible ischemia, chest pain may be noncardiac/ costochondritis --End-stage renal disease on hemodialysis hemodialysis per schedule, nephrology following --History of gout; stable on allopurinol --Peripheral neuropathy; stable on Neurontin --Atrial fibrillation; rate controlled, continue current beta blockers -- Coumadin held during last admission secondary to GI bleeding, --Hypertension; patient's blood pressures in the lower range, continue midodrine and closely monitor --DVT prophylaxis with heparin --Full CODE STATUS Closely monitor the patient and adjust the management as needed I discussed the patient's condition and treatment plan in detail with the patient and her Mr.Nguyen Paul at bedside Possible discharge in 1-2 days if stable History Interval history: patient seen and evaluated medical records No new events reported by the nursing staff is at the bedside, patient denies any chest pain or shortness of breath Complains of generalized weakness Alert, awake, oriented 3, not in acute distress Hospitalist Physical - Constitutional Vitals: Temp Pulse Resp BP Pulse Ox 98.2 F 70 18 110/56 97 09/08/16 09:26 09/08/16 10:00 09/08/16 09:26 09/08/16 09:26 09/08/16 11:00 General appearance: Present: no acute distress, well-nourished - EENT Eyes: Present: PERRL, EOM intact - Neck Neck: Present: supple, normal ROM - Respiratory Respiratory effort: normal Respiratory: bilateral: diminished, negative: rales, rhonchi, wheezing - Cardiovascular Rhythm: regular Heart Sounds: Present: S1 & S2 - Extremities Extremities: no ischemia, pulses intact, pulses symmetrical Peripheral Pulses: within normal limits - Abdominal General gastrointestinal: soft, non-tender, non-distended, normal bowel sounds - Integumentary Integumentary: Present: clear, warm - Psychiatric Psychiatric: appropriate mood/affect, cooperative - Neurologic Neurologic: CNII-XII intact, moves all extremities Results - Labs CBC & Chem 7: 09/06/16 12:20 09/06/16 12:20 Labs: Laboratory Last Values WBC 4.7 K/mm3 (4.5-11.0) 09/06/16 12:20 RBC 2.59 M/mm3 (3.65-5.03) L 09/06/16 12:20 Hgb 7.9 gm/dl (10.1-14.3) L 09/06/16 12:20 Hct 25.4 % (30.3-42.9) L 09/06/16 12:20 MCV 98 fl (79-97) H 09/06/16 12:20 MCH 30 pg (28-32) 09/06/16 12:20 MCHC 31 % (30-34) 09/06/16 12:20 RDW 22.6 % (13.2-15.2) H 09/06/16 12:20 Plt Count 187 K/mm3 (140-440) 09/06/16 12:20 Lymph % (Auto) 10.4 % (13.4-35.0) L 09/06/16 12:20 [place] % (Auto) 7.8 % (0.0-7.3) H 09/06/16 12:20 Eos % (Auto) 4.9 % (0.0-4.3) H 09/06/16 12:20 Baso % (Auto) 0.8 % (0.0-1.8) 09/06/16 12:20 Lymph # 0.5 K/mm3 (1.2-5.4) L 09/06/16 12:20 [place] # 0.4 K/mm3 (0.0-0.8) 09/06/16 12:20 Eos # 0.2 K/mm3 (0.0-0.4) 09/06/16 12:20 Baso # 0.0 K/mm3 (0.0-0.1) 09/06/16 12:20 Seg Neutrophils % 76.1 % (40.0-70.0) H 09/06/16 12:20 Seg Neutrophils # 3.5 K/mm3 (1.8-7.7) 09/06/16 12:20 PT 14.5 Sec. (12.2-14.9) 09/08/16 05:12 INR 1.14 (0.87-1.13) H 09/08/16 05:12 APTT 30.5 Sec. (24.2-36.6) 09/06/16 12:35 Sodium 137 mmol/L (137-145) 09/06/16 12:20 Potassium 4.0 mmol/L (3.6-5.0) 09/06/16 12:20 Chloride 95.0 mmol/L (98-107) L 09/06/16 12:20 Carbon Dioxide 27 mmol/L (22-30) 09/06/16 12:20 Anion Gap 19 mmol/L 09/06/16 12:20 BUN 19 mg/dL (7-17) H 09/06/16 12:20 Creatinine 3.8 mg/dL (0.7-1.2) H 09/06/16 12:20 Estimated GFR 12 ml/min 09/06/16 12:20 BUN/Creatinine Ratio 5.00 % 09/06/16 12:20 Glucose 154 mg/dL (65-100) H 09/06/16 12:20 POC Glucose 152 (70-105) H 09/08/16 12:15 Lactic Acid 1.30 mmol/L (0.7-2.0) 09/06/16 12:35 Calcium 8.3 mg/dL (8.4-10.2) L 09/06/16 12:20 Total Bilirubin 0.70 mg/dL (0.1-1.2) 09/06/16 12:20 AST 16 units/L (5-40) 09/06/16 12:20 ALT 12 units/L (7-56) 09/06/16 12:20 Alkaline Phosphatase 170 units/L (35-129) H 09/06/16 12:20 Total Creatine Kinase 56 units/L (30-135) 09/07/16 19:29 CK-MB (CK-2) 2.2 ng/mL (0.0-4.0) 09/07/16 19:29 CK-MB (CK-2) Rel Index 3.9 (0-4) 09/07/16 19:29 Troponin T 0.061 ng/mL (0.00-0.029) H D 09/07/16 19:29 NT-Pro-B Natriuret Pep 7093 pg/mL (0-900) H 09/06/16 12:35 Total Protein 7.3 g/dL (6.3-8.2) 09/06/16 12:20 Albumin 4.0 g/dL (3.9-5) 09/06/16 12:20 Albumin/Globulin Ratio 1.2 % 09/06/16 12:20 Triglycerides 45 mg/dL (2-149) 09/06/16 12:35 Cholesterol 102 mg/dL (50-199) 09/06/16 12:35 LDL Cholesterol Direct 41 mg/dL (50-130) L 09/06/16 12:35 HDL Cholesterol 52 mg/dL (40-59) 09/06/16 12:35 Cholesterol/HDL Ratio 1.96 % 09/06/16 12:35 Lipase 27 units/L (13-60) 09/06/16 12:35
[2016-09-09 08:11] LABS: INR 1.1 (0.87-1.13)
[2016-09-09] MEDS: NOVOLOG SUB-Q SCH ×2 (08:18→12:18)
[2016-09-09] MEDS: PROAMATINE PO SCH ×2 (08:18→16:19)
[2016-09-09] MEDS: NEURONTIN PO SCH ×2 (08:19→16:18)
--- NOTE | 2016-09-09 09:36 | Progress Note ---
Assessment and Plan Impression * Chest pain * End-stage renal disease on maintenance hemodialysis * anemia * volume overload * Herpes zoster * Chronic atrial fibrillation * Hypertension * Diabetes Recommendations * HD q MWF and prn * uf as tolerated * Renal diet * strict i/os * Monitor H&H and transfuse as needed * No IV, BP or venipuncture access arm * Adjust diet and meds for ESRD state Subjective Date of service: 09/09/16 Principal diagnosis: esrd Interval history: resting well in bed today Objective - Exam Narrative Exam: General appearance: well-developed, well-nourished, appears stated age EENT: PERRL, mucous membranes moist Neck: no JVD, no thyromegaly, no carotid bruit, supple Respiratory: Present: Rales (fine basal crackles) Cardiology: irregularly irregular, normal heart rate, S1S2, no murmurs Gastrointestinal: normal, normoactive bowel sounds Integumentary: other (raw area noted in her right flank and gluteal area. AV graft in her right upper arm. Good bruit and thrill) - Vital Signs Vital signs: Vital Signs - 12hr 09/08/16 09/09/16 09/09/16 22:00 00:29 04:16 Temperature 98.6 F 98.7 F Pulse Rate 70 Pulse Rate [ 70 70 Left] Respiratory 19 21 Rate Blood Pressure 108/55 140/67 [Left Arm] O2 Sat by Pulse 94 93 Oximetry 09/09/16 09/09/16 08:15 08:48 Temperature 98.7 F Pulse Rate Pulse Rate [ 70 Left] Respiratory 16 Rate Blood Pressure 135/63 [Left Arm] O2 Sat by Pulse 98 95 Oximetry - Lab 09/06/16 12:20 09/06/16 12:20 Most recent lab results Calcium 8.3 mg/dL (8.4-10.2) L 09/06/16 12:20
[2016-09-09] MEDS: HEPARIN SUB-Q SCH (10:19)
[2016-09-09] MEDS: MEGACE PO SCH (10:19)
[2016-09-09] MEDS ORDERED: NACL 0.9 (PRIMING MACHINE ONLY DIALYSIS) MC ONE (11:44)
--- NOTE | 2016-09-09 11:50 | Discharge Summary ---
Providers - Providers Date of Admission: 09/06/16 18:19 Date of discharge: 09/09/16 Attending physician: THOMAS HOWARD 09/07/16 07:52 Consult to Physician [CONS] Routine Consulting Provider: GEORGIA MELTON Reason For Exam: ESRD Place consult to:: Dr. Melton Notified:: Amara TOMAS Phone number called:: Was contact made?: Yes If yes, spoke with:: [facility] Time called:: 08:50 Primary care physician: PYTHON ARCHITECT Hospitalization Reason for admission: left sided chest pain Condition: Stable Pertinent studies: Stress test negative for reversible ischemia, normal left ventricular function Procedures: Hemodialysis per schedule Hospital course: Final diagnosis; Chest pain/evaluation for coronary artery disease Negative stress test Noncardiac chest pain/costochondritis End-stage renal disease on hemodialysis History of gout Atrial fibrillation Anticoagulation held in view of GI bleeding recently Hypertension Brief history and hospital course; 66-year-old female patient with significant past medical history of end-stage renal disease on hemodialysis who was admitted through emergency room with left- sided chest pain of one-day duration Patient was initially evaluated later in the event Lexiscan stress test which was negative for reversible ischemia with normal LV function 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, received hemodialysis per schedule Patient's chest pain may be noncardiac secondary to costochondritis, managed with pain medications and supportive care Today she is comfortable in bed no new complaints, vital signs are stable, ambulatory and tolerating oral nutrition [id number] evaluation physical examination done by me prior to discharge is unremarkable DC the patient home and will follow with primary care physician aviation electrician per schedule Home Health will be resumed after discharge Disposition: [id number] HOME UNDER HOME [facility] Time spent for discharge: 32 min Core Measure Documentation - Palliative Care Palliative Care/ Comfort Measures: Not Applicable - Core Measures Any of the following diagnoses?: none Exam - Constitutional Vitals: Temp Pulse Resp BP Pulse Ox 98.2 F 69 16 135/64 95 09/09/16 10:22 09/09/16 11:30 09/09/16 10:22 09/09/16 11:30 09/09/16 08:48 General appearance: Present: no acute distress, well-nourished, obese - EENT Eyes: Present: PERRL, EOM intact - Neck Neck: Present: supple, normal ROM - Respiratory Respiratory effort: normal Respiratory: bilateral: diminished, negative: rales, rhonchi, wheezing - Cardiovascular Rhythm: regular Heart Sounds: Present: S1 & S2 - Extremities Extremities: no ischemia, No edema Peripheral Pulses: within normal limits - Abdominal General gastrointestinal: Present: soft, non-tender, non-distended - Integumentary Integumentary: Present: clear, warm - Musculoskeletal Musculoskeletal: strength equal bilaterally - Psychiatric Psychiatric: appropriate mood/affect, cooperative - Neurologic Neurologic: CNII-XII intact, moves all extremities Plan Activity: advance as tolerated, fall precautions Diet: renal, other (cardiac diet) Special Instructions: physical therapy Additional Instructions: Renal /HD per schedule. If you have Chest pain or shortness of breath contact M.D or go to the emergency room Follow up with: PRIMARY CAREMD [Primary Care Provider] - 3-5 Days NATHALIE BETH MD [Staff Physician] - 7 Days Prescriptions: oxyCODONE /ACETAMINOPHEN [Percocet 5/325] 1 tab PO QHS PRN #10 tablet PRN Reason: Pain
[2016-09-09 15:19] VITALS: BP 94/54
[2016-09-09] MEDS: LASIX PO SCH (16:17)
[2016-09-09] MEDS: ZOLOFT PO SCH (16:17)
[2016-09-09] MEDS: ZYLOPRIM PO SCH (16:18)
[2016-09-09] MEDS: ZAROXOLYN PO SCH (16:18)
[2016-09-09] MEDS: PROTONIX PO SCH (16:20)
== END 2016-09-09 17:30 | disposition home health service (06) | DRG 205 ==
LOC: ED 11:54 → 4A 18:19
PROVIDERS: ADMIT Internal Medicine; ATTEND Internal Medicine
PROC: 5A1D60Z (ICD-10-PCS; principal; 2016-09-06)
DX: M94.0 Chondrocostal junction syndrome [Tietze] (principal); N18.6 End stage renal disease; I13.2 Hypertensive heart and chronic kidney disease with heart failure and with stage 5 chronic kidney disease, or end stage renal disease; M10.9 Gout, unspecified; J44.9 Chronic obstructive pulmonary disease, unspecified; I50.9 Heart failure, unspecified; E11.22 Type 2 diabetes mellitus with diabetic chronic kidney disease; K21.9 Gastro-esophageal reflux disease without esophagitis; M19.90 Unspecified osteoarthritis, unspecified site; D64.9 Anemia, unspecified; E87.70 Fluid overload, unspecified; I48.2 Chronic atrial fibrillation; B02.9 Zoster without complications; E11.42 Type 2 diabetes mellitus with diabetic polyneuropathy; Z86.73 Personal history of transient ischemic attack (TIA), and cerebral infarction without residual deficits; Z95.0 Presence of cardiac pacemaker; Z82.49 Family history of ischemic heart disease and other diseases of the circulatory system; Z79.01 Long term (current) use of anticoagulants; I95.3 Hypotension of hemodialysis
CPT/HCPCS: 36415; 71010; 78452; 80053; 80061; 82140; 82550; 82553; 82962; 83690; 83880; 84484; 85025; 85610; 85730; 93005; 93010; 93017; 94760; 96374; 96375; A9502; J1170; J1644; J1815; J2270; J2405; J2785; J2930; J7030; Q0162

== ENCOUNTER 2016-12-24 07:34 | Outpatient (CLI) | payer MEDICARE ==
[2016-12-24] MEDS ORDERED: NACL ONE ×2 (08:07→08:35)
--- NOTE | 2016-12-24 10:23 | Cat Scan Report ---
CT NECK WITH AND WITHOUT CONTRAST INDICATION: Acute lymphadenitis of face, head and neck. COMPARISON: None similar. FINDINGS: Neck CT performed before and after IV contrast. Area of interest marked on the right without significant adenopathy identified. Superior end of the marker corresponds to inferior aspect of right submandibular gland. Patent vessels. Right jugular vein dominant. Heterogeneous right thyroid lobe with few small intrinsic calcifications and approximately 2.8 x 1.6 x 5.4 cm soft tissue nodular retrosternal extension noted on axial images 135-178. Pharynx, hypopharynx and the larynx appear unremarkable. Normal parapharyngeal fat pad. Salivary glands appear within normal limits. Left chest AICD with dual-chamber leads. Clear visualized lung apices. C4-C7 degenerative spurring with disc narrowing and slight kyphosis. Left maxillary sinus polyposis/mucous retention cysts inferiorly measuring up to 1.7 cm as on axial image 69. Slight ethmoid and right maxillary sinus mucosal thickening. Slight leftward nasal septal bowing. Clear remainder imaged paranasal sinuses and mastoid air cells. Bilateral cataract surgery. No acute intracranial CT abnormality with approximately 2.4 cm right posterior frontal-parietal hypodensity/encephalomalacia, axial image 11. Mild ICA atherosclerotic calcifications. CONCLUSION: No size significant lymphadenopathy in the neck with various other incidental findings, as above. Thank you for the opportunity to participate in this patient's care.
== END 2016-12-24 07:35 | disposition home or self-care (01) ==
LOC: CT 07:34
PROVIDERS: ATTEND Otolaryngology
DX: K14.9 Disease of tongue, unspecified (principal); L04.0 Acute lymphadenitis of face, head and neck; R07.0 Pain in throat; J34.2 Deviated nasal septum; I70.90 Unspecified atherosclerosis; G93.89 Other specified disorders of brain; M40.292 Other kyphosis, cervical region
CPT/HCPCS: 70492; Q9967

== ENCOUNTER 2017-01-28 18:52 | Inpatient (IN) | payer MEDICARE ==
[2017-01-28] MEDS ORDERED: ZOFRAN IV ONE ×2 (20:01→22:41)
[2017-01-28 20:30] LABS: Basophils % (Auto) 1.1 % (0.0-1.8); Hematocrit 28.7 % (30.3-42.9); Hemoglobin 8.8 gm/dl (10.1-14.3); Mean Corpuscular HGB Conc 31 % (30-34); Mean Corpuscular Hemoglobin 30 pg (28-32); Mean Corpuscular Volume 96 fl (79-97); Platelet Count 171 K/mm3 (140-440); Red Blood Count 2.99 M/mm3 (3.65-5.03); Red Cell Distribution Width 19.1 % (13.2-15.2); White Blood Count 5.2 K/mm3 (4.5-11.0)
[2017-01-28 20:42] LABS: INR 0.99 (0.87-1.13)
[2017-01-28 20:43] LABS: Partial Thromboplastin Time 32.6 Sec. (24.2-36.6)
[2017-01-28 20:48] LABS: Calcium 7.5 mg/dL (8.4-10.2); Chloride 96.4 mmol/L (98-107); Potassium 4.9 mmol/L (3.6-5.0)
[2017-01-28] MEDS ORDERED: ASPIRIN PO ONE (22:39)
[2017-01-28] MEDS ORDERED: MORPHINE IV ONE (22:41)
--- NOTE | 2017-01-28 22:50 | Emergency Department Report ---
ED Chest Pain HPI - General Chief Complaint: Chest Pain Stated Complaint: CHEST PAIN Time Seen by Provider: 01/28/17 21:30 Source: patient Mode of arrival: Stretcher Limitations: Language Barrier - History of Present Illness Initial Comments: 67 yo female who comes in today due to chest pain times four days. She describes the chest pain as midsternal, 7/10, pressure-like, with radiation to her upper back. She has an extensive past medical history, and sees cardiology/ nephrology currently. Onset/Timin -: days(s) Onset: other (4 days ago ) Pain Location: other (midsternal ) Pain Radiation: back Severity: moderate Severity scale (0 -10): 7 Quality: aching, pressure Consistency: constant Improves With: nothing Worsens With: exertion re: nausea Treatments Prior to Arrival: none Aspirin use within the Past 7 Days: (0) No - Related Data On Oral Contraceptives: No Home Medications Medication Instructions Recorded Confirmed Last Taken Allopurinol [Zyloprim] 100 mg PO QDAY 09/24/15 01/28/17 2 Days Ago ~12/19/16 1 Gabapentin [Neurontin] 200 mg PO TID 09/24/15 01/28/17 1 Day Ago ~12/20/16 Midodrine [Proamatine] 2.5 mg PO TID 09/24/15 01/28/17 2 Days Ago ~12/19/16 Furosemide [Lasix TAB] 80 mg PO QDAY 06/04/16 01/28/17 2 Days Ago ~12/19/16 B Complex 11/Folic/C/Biot/Zinc 1 tab PO QDAY 08/09/16 01/28/17 2 Days Ago [Dialyvite with Zinc Tablet] ~12/19/16 Macitentan [Opsumit] 10 mg PO QDAY 08/09/16 01/28/17 2 Days Ago ~12/19/16 Imqvg-S-Qfaosjhwmguks [Beano] 1 each PO PRN 09/06/16 01/28/17 2 Days Ago ~12/19/16 Benzonatate [Tessalon Perles] 100 mg PO Q8HR 09/06/16 01/28/17 2 Days Ago ~12/19/16 Calcium Phosphate Trib/Vit D3 1 each PO DAILY 09/06/16 01/28/17 2 Days Ago [Calcium + Vitamin D3 Gummies] ~12/19/16 Loperamide [Imodium] 2 mg PO DAILY PRN 09/06/16 01/28/17 1 Month Ago ~11/21/16 Megestrol [Megace] 20 mg PO BID 09/06/16 01/28/17 2 Days Ago ~12/19/16 Ondansetron [Zofran TAB] 4 mg PO Q8HR PRN 09/06/16 01/28/17 2 Days Ago ~12/19/16 Sertraline [Zoloft] 50 mg PO QDAY 09/06/16 01/28/17 2 Days Ago ~12/19/16 Aspirin [Aspirin BABY CHEW TAB] 81 mg PO Q48HR 01/28/17 01/28/17 Unknown Previous Rx's Medication Instructions Recorded Last Taken Type Pantoprazole [Protonix TAB] 40 mg PO BID #60 tablet 08/13/16 2 Days Ago Rx ~12/19/16 Allergies Allergy/AdvReac Type Severity Reaction Status Date / Time No Known Allergies Allergy Verified 09/06/16 12:20 Heart Score - HEART Score History: Moderately suspicious EKG: Non-specific (Pacemaker-paced rhythm) Age: > 65 Risk factors: > 3 risk factors or hx of atherosclerotic disease Troponin: 1-3x normal limit HEART Score: 7 ED Review of Systems ROS: Stated complaint: CHEST PAIN Other details as noted in HPI Constitutional: denies: chills, fever Eyes: denies: eye pain, eye discharge, vision change ENT: denies: ear pain, throat pain Respiratory: denies: cough, shortness of breath, wheezing Cardiovascular: as per HPI, chest pain Endocrine: no symptoms reported Gastrointestinal: nausea Genitourinary: denies: urgency, dysuria, discharge Musculoskeletal: denies: back pain, joint swelling, arthralgia Neurological: denies: headache, weakness, paresthesias Psychiatric: denies: anxiety, depression Hematological/Lymphatic: denies: easy bleeding, easy bruising ED Past Medical Hx - Past Medical History Previous Medical History?: Yes Hx Hypertension: Yes Hx CVA: Yes (4 cva's) Hx Heart Attack/AMI: No Hx Congestive Heart Failure: Yes Hx Diabetes: Yes Hx Deep Vein Thrombosis: No Hx Pulmonary Embolism: No Hx GERD: Yes Hx Liver Disease: No Hx Renal Disease: Yes (dialysis on Friday, , Friday) Hx Sickle Cell Disease: No Hx Arthritis: Yes Hx Seizures: No Hx Kidney Stones: No Hx Asthma: Yes Hx COPD: Yes Hx Tuberculosis: No Hx Dementia: No Hx HIV: No Additional medical history: atrial fibrillation; Anemia - Surgical History Past Surgical History?: Yes Hx Coronary Stent: No Hx Open Heart Surgery: No Hx Pacemaker: Yes (left chest) Hx Internal Defibrillator: Yes Hx Cholecystectomy: No Hx Appendectomy: No Hx Breast Surgery: No Additional Surgical History: fistula right arm - Social History Smoking Status: Never Smoker Substance Use Type: None - Medications Home Medications: Home Medications Medication Instructions Recorded Confirmed Last Taken Type Allopurinol [Zyloprim] 100 mg PO QDAY 09/24/15 01/28/17 2 Days Ago History ~12/19/16 1 Gabapentin [Neurontin] 200 mg PO TID 09/24/15 01/28/17 1 Day Ago History ~12/20/16 Midodrine [Proamatine] 2.5 mg PO TID 09/24/15 01/28/17 2 Days Ago History ~12/19/16 Furosemide [Lasix TAB] 80 mg PO QDAY 06/04/16 01/28/17 2 Days Ago History ~12/19/16 B Complex 11/Folic/C/Biot/Zinc 1 tab PO QDAY 08/09/16 01/28/17 2 Days Ago History [Dialyvite with Zinc Tablet] ~12/19/16 Macitentan [Opsumit] 10 mg PO QDAY 08/09/16 01/28/17 2 Days Ago History ~12/19/16 Pantoprazole [Protonix TAB] 40 mg PO BID #60 tablet 08/13/16 01/28/17 2 Days Ago Rx ~12/19/16 Zbbey-D-Wyedjsfefupwp [Beano] 1 each PO PRN 09/06/16 01/28/17 2 Days Ago History ~12/19/16 Benzonatate [Tessalon Perles] 100 mg PO Q8HR 09/06/16 01/28/17 2 Days Ago History ~12/19/16 Calcium Phosphate Trib/Vit D3 1 each PO DAILY 09/06/16 01/28/17 2 Days Ago History [Calcium + Vitamin D3 Gummies] ~12/19/16 Loperamide [Imodium] 2 mg PO DAILY PRN 09/06/16 01/28/17 1 Month Ago History ~11/21/16 Megestrol [Megace] 20 mg PO BID 09/06/16 01/28/17 2 Days Ago History ~12/19/16 Ondansetron [Zofran TAB] 4 mg PO Q8HR PRN 09/06/16 01/28/17 2 Days Ago History ~12/19/16 Sertraline [Zoloft] 50 mg PO QDAY 09/06/16 01/28/17 2 Days Ago History ~12/19/16 Aspirin [Aspirin BABY CHEW TAB] 81 mg PO Q48HR 01/28/17 01/28/17 Unknown History ED Physical Exam - General Limitations: Language Barrier General appearance: anxious - Head Head exam: Present: atraumatic, normocephalic - Eye Eye exam: Present: normal appearance - ENT ENT exam: Present: mucous membranes moist - Neck Neck exam: Present: normal inspection - Respiratory Respiratory exam: Present: normal lung sounds bilaterally. Absent: respiratory distress - Cardiovascular Cardiovascular Exam: Present: regular rate (pacemaker-paced rhythm) - GI/Abdominal GI/Abdominal exam: Present: soft, normal bowel sounds - Extremities Exam Extremities exam: Present: normal inspection - Back Exam Back exam: Present: normal inspection - Neurological Exam Neurological exam: Present: alert, oriented X3 - Psychiatric Psychiatric exam: Present: anxious - Skin Skin exam: Present: warm, dry, intact, normal color. Absent: rash ED Course Vital Signs 01/28/17 01/28/17 01/28/17 20:02 20:19 20:31 Temperature 98.6 F Pulse Rate 54 L 70 Respiratory 18 18 19 Rate Blood Pressure 116/48 116/38 O2 Sat by Pulse 98 100 Oximetry 01/28/17 01/28/17 01/28/17 21:00 21:30 22:00 Temperature Pulse Rate 70 Respiratory 18 19 20 Rate Blood Pressure 118/40 110/54 112/50 O2 Sat by Pulse 99 99 96 Oximetry 01/28/17 01/28/17 01/28/17 22:30 23:01 23:17 Temperature Pulse Rate 70 Respiratory 21 12 15 Rate Blood Pressure 123/49 106/39 106/39 O2 Sat by Pulse 95 97 98 Oximetry 01/28/17 01/29/17 01/29/17 23:30 00:00 00:30 Temperature Pulse Rate 70 70 56 L Respiratory 20 13 14 Rate Blood Pressure 112/47 106/46 107/52 O2 Sat by Pulse 97 98 98 Oximetry KENDELL score - Kendell Score Age > 65: (1) Yes Aspirin use within the Past 7 Days: (1) Yes 3 or more CAD Risk Factors: (1) Yes 2 or more Angina events in past 24 hrs: (1) Yes Known CAD with more than 50% Stenosis: (0) No Elevated Cardiac Markers: (0) No ST Deviation Greater than 0.5mm: (0) No KENDELL Score: 4 ED Medical Decision Making - Lab Data Result diagrams: 01/28/17 19:44 01/28/17 20:01 Critical care attestation.: If time is entered above; I have spent that time in minutes in the direct care of this critically ill patient, excluding procedure time. ED Disposition Clinical Impression: Chest pain, Atypical chest pain, End-stage renal disease needing dialysis Disposition: OP ADMIT IP TO THIS HOSP Is pt being admited?: Yes Does the pt Need Aspirin: Yes Condition: Stable Instructions: Chest Pain (ED) Referrals: PRIMARY CARE, [Primary Care Provider] - 3-5 Days Time of Disposition: 01:04
[2017-01-29] MEDS ORDERED: REGLAN IV ONE (03:59)
[2017-01-29] MEDS: MORPHINE IV PRN ×3 (06:22→20:51)
--- NOTE | 2017-01-29 07:28 | XRay Report ---
AP CHEST: HISTORY: chest pain Moderate cardiomegaly and mild pulmonary venous congestion are stable since 12/20/16. The lungs are clear. No evidence for pneumonia, CHF or pneumothorax. Pacemaker device is unchanged. IMPRESSION: No change in cardiomegaly and pulmonary venous congestion. Lungs clear.
[2017-01-29] MEDS ORDERED: NITROSTAT SL PRN (08:40)
[2017-01-29] MEDS ORDERED: BIOT PO SCH (10:00)
[2017-01-29] MEDS ORDERED: LASIX PO SCH (10:00)
[2017-01-29] MEDS ORDERED: FOLIC PO SCH (10:00)
[2017-01-29] MEDS ORDERED: NON-FORMULARY (Furosemide [Lasix Tab] 80 MG) PO SCH (10:00)
[2017-01-29] MEDS ORDERED: IMODIUM PO PRN (10:00)
[2017-01-29] MEDS ORDERED: B COMPLEX PO SCH (10:00)
[2017-01-29] MEDS ORDERED: CALCIUM PHOSPHATE TRIB PO SCH (10:00)
[2017-01-29] MEDS ORDERED: BABY ASPIRIN PO SCH (10:00)
[2017-01-29] MEDS ORDERED: VIT D3 PO SCH (10:00)
[2017-01-29] MEDS ORDERED: [UNRECOGNIZED DRUG - OTHER] PO SCH (10:00)
[2017-01-29] MEDS ORDERED: ZINC PO SCH (10:00)
--- NOTE | 2017-01-29 10:15 | Consultation ---
History of Present Illness Consult date: 01/29/17 Consult reason: chest pain History of present illness: This is a 66yr old woman with multiple medical problems. She has chronic Atrial fibrillation, ESRD on dialysis, Hepatitis C, Pulmonary HTN, CVA, COPD on home oxygen, chronic Hypotension and diastolic heart failure. Patient was previously considered not a candidate for oral anticoagulation due to severe anemia and prior GI bleed. Patient also a permanent pacemaker. The patient has had extensive cardiac workup in the past. In 2011 she had a left heart cath that showed non-obstructive coronary artery disease. More recently, 5 months ago, she had a normal myocardial perfusion thallium stress test and a reported preserved ejection fraction, 55% on echocardiogram. Patient was brought to this hospital with complaints of shortness of breath and chest pain after dialysis on yesterday. at bedside reports the patient has complained of intermittent chest pain over the last week. No reported worsening or alleviating factors. Medications and Allergies Allergies Allergy/AdvReac Type Severity Reaction Status Date / Time No Known Allergies Allergy Verified 09/06/16 12:20 Home Medications Medication Instructions Recorded Confirmed Last Taken Type Allopurinol [Zyloprim] 100 mg PO QDAY 09/24/15 01/28/17 2 Days Ago History ~12/19/16 1 Gabapentin [Neurontin] 200 mg PO TID 09/24/15 01/28/17 1 Day Ago History ~12/20/16 Midodrine [Proamatine] 2.5 mg PO TID 09/24/15 01/28/17 2 Days Ago History ~12/19/16 Furosemide [Lasix TAB] 80 mg PO QDAY 06/04/16 01/28/17 2 Days Ago History ~12/19/16 B Complex 11/Folic/C/Biot/Zinc 1 tab PO QDAY 08/09/16 01/28/17 2 Days Ago History [Dialyvite with Zinc Tablet] ~12/19/16 Macitentan [Opsumit] 10 mg PO QDAY 08/09/16 01/28/17 2 Days Ago History ~12/19/16 Pantoprazole [Protonix TAB] 40 mg PO BID #60 tablet 08/13/16 01/28/17 2 Days Ago Rx ~12/19/16 Whanh-R-Xqsmrumulrkyq [Beano] 1 each PO PRN 09/06/16 01/28/17 2 Days Ago History ~12/19/16 Benzonatate [Tessalon Perles] 100 mg PO Q8HR 09/06/16 01/28/17 2 Days Ago History ~12/19/16 Calcium Phosphate Trib/Vit D3 1 each PO DAILY 09/06/16 01/28/17 2 Days Ago History [Calcium + Vitamin D3 Gummies] ~12/19/16 Loperamide [Imodium] 2 mg PO DAILY PRN 09/06/16 01/28/17 1 Month Ago History ~11/21/16 Megestrol [Megace] 20 mg PO BID 09/06/16 01/28/17 2 Days Ago History ~12/19/16 Ondansetron [Zofran TAB] 4 mg PO Q8HR PRN 09/06/16 01/28/17 2 Days Ago History ~12/19/16 Sertraline [Zoloft] 50 mg PO QDAY 09/06/16 01/28/17 2 Days Ago History ~12/19/16 Aspirin [Aspirin BABY CHEW TAB] 81 mg PO Q48HR 01/28/17 01/28/17 Unknown History Active Meds: Active Medications Allopurinol (Zyloprim) 100 mg PO QDAY ÁNGEL Aspirin (Baby Aspirin) 81 mg PO QDAY ÁNGEL Benzonatate (Tessalon Perles) 100 mg PO Q8HR [facility] Gabapentin (Neurontin) 200 mg PO TID ÁNGEL Loperamide HCl (Imodium) 2 mg PO DAILY PRN PRN Reason: Diarrhea Megestrol Acetate (Megace) 20 mg PO BID ÁNGEL Midodrine (Proamatine) 2.5 mg PO TID [facility] Miscellaneous Medication (B Complex 11/Folic/C/Biot/Zinc [Dialyvite With Zinc Tablet]) 1 tab PO QDAY [facility] Miscellaneous Medication (Calcium Phosphate Trib/Vit D3 [Calcium + Vitamin D3 Gummies]) 1 each PO DAILY [facility] Miscellaneous Medication (Furosemide [Lasix Tab]) 80 mg PO QDAY [facility] Miscellaneous Medication (Macitentan [Opsumit]) 10 mg PO QDAY ÁNGEL Morphine Sulfate (Morphine) 2 mg IV Q4H PRN PRN Reason: Pain, Moderate (4-6) Last Admin: 01/29/17 06:22 Dose: 2 mg Nitroglycerin (Nitrostat) 0.4 mg SL .Q5MIN PRN PRN Reason: Chest Pain Ondansetron HCl (Zofran) 4 mg IV Q4H PRN PRN Reason: N/V IF NPO AND NO IV ACCESS Pantoprazole Sodium (Protonix) 40 mg PO BID ÁNGEL Sertraline HCl (Zoloft) 50 mg PO QDAY ÁNGEL Physical Examination Vital Signs Temp Pulse Resp BP Pulse Ox 98.6 F 54 L 18 116/48 98 01/28/17 20:02 01/28/17 20:02 01/28/17 20:02 01/28/17 20:02 01/28/17 20:02 General appearance: no acute distress HEENT: Positive: PERRL Cardiac: Positive: Other (v-paced) Lungs: Positive: Decreased Breath Sounds Neuro: Positive: Grossly Intact Results 01/28/17 19:44 01/28/17 20:01 Coagulation 01/28/17 Range/Units 19:44 PT 13.6 (12.2-14.9) Sec. INR 0.99 (0.87-1.13) APTT 32.6 (24.2-36.6) Sec. Lipids 01/28/17 Range/Units 20:01 Triglycerides 49 (2-149) mg/dL Cholesterol 122 (50-199) mg/dL HDL Cholesterol 57 (40-59) mg/dL Cholesterol/HDL Ratio 2.14 % CBC 01/28/17 Range/Units 19:44 WBC 5.2 (4.5-11.0) K/mm3 RBC 2.99 L (3.65-5.03) M/mm3 Hgb 8.8 L (10.1-14.3) gm/dl Hct 28.7 L (30.3-42.9) % Plt Count 171 (140-440) K/mm3 Lymph # 0.5 L (1.2-5.4) K/mm3 [place] # 0.5 (0.0-0.8) K/mm3 Eos # 0.4 (0.0-0.4) K/mm3 Baso # 0.1 (0.0-0.1) K/mm3 Comprehensive Metabolic Panel 01/28/17 Range/Units 20:01 Sodium 138 (137-145) mmol/L Potassium 4.9 (3.6-5.0) mmol/L Chloride 96.4 L (98-107) mmol/L Carbon Dioxide 22 (22-30) mmol/L BUN 26 H (7-17) mg/dL Creatinine 4.3 H (0.7-1.2) mg/dL Glucose 202 H (65-100) mg/dL Calcium 7.5 L (8.4-10.2) mg/dL Assessment and Plan Chest pain Hypotension, chronic on midodrine as an outpatient Atherosclerotic heart disease of [place] coronary artery without angina pectoris non-obstructive by [facility] 2011 normal myocardial perfusion on MPI 08/2016 EF 55-60% on echo 07/2016 Pulmonary hypertension on home oxygen therapy Chronic atrial fibrillation previously considered not a candidate for oral anticoagulation due to anemia and prior GI bleed. Chronic Kidney Disease, on HD Anemia Chronic viral hepatitis C Nonrheumatic tricuspid (valve) insufficiency Hx of cerebrovascular disease Pacemaker/cardiac insitu
--- NOTE | 2017-01-29 11:53 | History and Physical Report ---
Addendum entered and electronically signed by SANTOSH MOELLER MD 01/30/17 07: 44: I called radiologist department and left message (with Oleksandr) for Kary Diaz to call me and explain to me why/who cancelled the test I ordered. Addendum entered and electronically signed by SANTOSH MOELLER MD 01/30/17 07: 38: Looking for CT neck and chest but it was cancelled. I do not know why or who cancelled the test. Original Note: <TRENT WALTONAMAN - Last Filed: 01/29/17 13:20> History of Present Illness Date of examination: 01/29/17 Date of admission: 01/29/17 04:50 Chief complaint: Chest pain History of present illness: Patient is a 67-year-old female with past medical history of Atrial fibrillation , ESRD on dialysis, Hepatitis C, Pulmonary HTN, CVA, COPD on home oxygen, chronic Hypotension permanent pacemaker and diastolic heart failure, who presents to emergency department for complaining of midsternal chest pain. She does not speak Somali but her at bedside speaks fair Somali. She states that the pain began 4 days ago but last night got worst intermittent midsternal chest pain. The pain was located over her substernal somewhat in the left epigastric area. She describes the quality as a chest tightness/pressure with radiation to the left shoulder and back. The painful episodes did not increase in intensity or severity during this time. The patient denies chest pain at present time. Patient stated that she has been nauseated all morning. Patient reported begin lightheaded shortness of breath, dizziness and heart palpitations, diaphoresis including feeling clammy.At the ED the patient was given nitroglycerin and ASA which she claims helped alleviate the pain somewhat. No aggravating factors. The patient has had extensive cardiac workup in the past. Past History Past Medical History: COPD ( , ESRD on dialysis, Hepatitis C, Pulmonary HTN, CVA , COPD on home oxygen, chronic Hypotension permanent pacemaker and diastolic heart failure,), diabetes, ESRD, heart failure, hepatitis, stroke, other ( Atrial fibrillation, hepatitis C, Pulmonary HTN, Hypotension permanent pacemaker ) Past Surgical History: Other (permanent pacemaker and dialysis access) Social history: full code. denies: smoking, alcohol abuse Family history: diabetes, hypertension Medications and Allergies Allergies Allergy/AdvReac Type Severity Reaction Status Date / Time No Known Allergies Allergy Verified 09/06/16 12:20 Home Medications Medication Instructions Recorded Confirmed Last Taken Type Allopurinol [Zyloprim] 100 mg PO QDAY 09/24/15 01/28/17 2 Days Ago History ~12/19/16 1 Gabapentin [Neurontin] 200 mg PO TID 09/24/15 01/28/17 1 Day Ago History ~12/20/16 Midodrine [Proamatine] 2.5 mg PO TID 09/24/15 01/28/17 2 Days Ago History ~12/19/16 Furosemide [Lasix TAB] 80 mg PO QDAY 06/04/16 01/28/17 2 Days Ago History ~12/19/16 B Complex 11/Folic/C/Biot/Zinc 1 tab PO QDAY 08/09/16 01/28/17 2 Days Ago History [Dialyvite with Zinc Tablet] ~12/19/16 Macitentan [Opsumit] 10 mg PO QDAY 08/09/16 01/28/17 2 Days Ago History ~12/19/16 Pantoprazole [Protonix TAB] 40 mg PO BID #60 tablet 08/13/16 01/28/17 2 Days Ago Rx ~12/19/16 [id number]-Pcbxsjnjbhwhi [Beano] 1 each PO PRN 09/06/16 01/28/17 2 Days Ago History ~12/19/16 Benzonatate [Tessalon Perles] 100 mg PO Q8HR 09/06/16 01/28/17 2 Days Ago History ~12/19/16 Calcium Phosphate Trib/Vit D3 1 each PO DAILY 09/06/16 01/28/17 2 Days Ago History [Calcium + Vitamin D3 Gummies] ~12/19/16 Loperamide [Imodium] 2 mg PO DAILY PRN 09/06/16 01/28/17 1 Month Ago History ~11/21/16 Megestrol [Megace] 20 mg PO BID 09/06/16 01/28/17 2 Days Ago History ~12/19/16 Ondansetron [Zofran TAB] 4 mg PO Q8HR PRN 09/06/16 01/28/17 2 Days Ago History ~12/19/16 Sertraline [Zoloft] 50 mg PO QDAY 09/06/16 01/28/17 2 Days Ago History ~12/19/16 Aspirin [Aspirin BABY CHEW TAB] 81 mg PO Q48HR 01/28/17 01/28/17 Unknown History Active Meds: Active Medications Allopurinol (Zyloprim) 100 mg PO QDAY REPLACED BY [facility] Aspirin (Baby Aspirin) 81 mg PO QDAY REPLACED BY [facility] Benzonatate (Tessalon Perles) 100 mg PO Q8HR REPLACED BY [facility] Furosemide (Lasix) 80 mg PO QDAY REPLACED BY [facility] Gabapentin (Neurontin) 200 mg PO TID REPLACED BY [facility] Loperamide HCl (Imodium) 2 mg PO DAILY PRN PRN Reason: Diarrhea Megestrol Acetate (Megace) 20 mg PO BID REPLACED BY [facility] Midodrine (Proamatine) 2.5 mg PO TID REPLACED BY [facility] Miscellaneous Medication (Calcium Phosphate Trib/Vit D3 [Calcium + Vitamin D3 Gummies]) 1 each PO DAILY REPLACED BY [facility] Miscellaneous Medication (Macitentan [Opsumit]) 10 mg PO QDAY REPLACED BY [facility] Morphine Sulfate (Morphine) 2 mg IV Q4H PRN PRN Reason: Pain, Moderate (4-6) Last Admin: 01/29/17 06:22 Dose: 2 mg Multivit/Ca Carb/B Cmplx/FA/Prenat (Renal Caps) 1 cap PO QDAY REPLACED BY [facility] Nitroglycerin (Nitrostat) 0.4 mg SL .Q5MIN PRN PRN Reason: Chest Pain Ondansetron HCl (Zofran) 4 mg IV Q4H PRN PRN Reason: N/V IF NPO AND NO IV ACCESS Pantoprazole Sodium (Protonix) 40 mg PO BID REPLACED BY [facility] Sertraline HCl (Zoloft) 50 mg PO QDAY REPLACED BY [facility] Review of Systems Constitutional: no fever, no chills Ears, nose, mouth and throat: no tinnitis, no decreased hearing, no nose pain, no nasal congestion Breasts: no change in shape, no swelling Cardiovascular: chest pain, lightheadedness, shortness of breath, dyspnea on exertion, paroxysmal nocturnal dyspnea, no orthopnea, no palpitations Respiratory: shortness of breath, dyspnea on exertion Gastrointestinal: nausea, no vomiting, no constipation Genitourinary Female: no flank pain, no menorrhagia, no dysuria Rectal: no incontinence, no bleeding Musculoskeletal: no shooting arm pain, no arm numbness/tingling, no low back pain Integumentary: no wounds, no jaundice, no boils Neurological: no weakness, no parathesias, no numbness, no tingling Psychiatric: no change in sleep habits, no sleep disturbances, no insomnia, no hypersomnia Endocrine: no cold intolerance, no heat intolerance, no polyphagia Hematologic/Lymphatic: no easy bruising, no easy bleeding Allergic/Immunologic: no urticaria, no allergic rhinitis, no wheezing Exam - Constitutional Vitals: Temp Pulse Resp BP Pulse Ox 98.8 F 70 20 123/53 97 01/29/17 07:25 01/29/17 07:25 01/29/17 07:25 01/29/17 07:25 01/29/17 07:25 General appearance: Present: no acute distress - EENT Eyes: Present: PERRL ENT: hearing intact - Neck Neck: Present: supple, normal ROM - Respiratory Respiratory effort: normal Respiratory: bilateral: diminished, wheezing - Cardiovascular Rhythm: regular Heart Sounds: Present: S1 & S2 - Abdominal General gastrointestinal: Present: soft, non-tender - Rectal Rectal Exam: deferred - Integumentary Integumentary: Present: clear (Right neck swelling ), warm, dry ( K I will will ahead) - Musculoskeletal Musculoskeletal: strength equal bilaterally - Psychiatric Psychiatric: appropriate mood/affect - Neurologic Neurologic: moves all extremities - Allied Health Allied health notes reviewed: nursing Results - Labs CBC & Chem 7: 01/28/17 19:44 01/28/17 20:01 Labs: Laboratory Last Values WBC 5.2 K/mm3 (4.5-11.0) 01/28/17 19:44 RBC 2.99 M/mm3 (3.65-5.03) L 01/28/17 19:44 Hgb 8.8 gm/dl (10.1-14.3) L 01/28/17 19:44 Hct 28.7 % (30.3-42.9) L 01/28/17 19:44 MCV 96 fl (79-97) 01/28/17 19:44 MCH 30 pg (28-32) 01/28/17 19:44 MCHC 31 % (30-34) 01/28/17 19:44 RDW 19.1 % (13.2-15.2) H 01/28/17 19:44 Plt Count 171 K/mm3 (140-440) 01/28/17 19:44 Lymph % (Auto) 9.2 % (13.4-35.0) L 01/28/17 19:44 [place] % (Auto) 9.2 % (0.0-7.3) H 01/28/17 19:44 Eos % (Auto) 7.0 % (0.0-4.3) H 01/28/17 19:44 Baso % (Auto) 1.1 % (0.0-1.8) 01/28/17 19:44 Lymph # 0.5 K/mm3 (1.2-5.4) L 01/28/17 19:44 [place] # 0.5 K/mm3 (0.0-0.8) 01/28/17 19:44 Eos # 0.4 K/mm3 (0.0-0.4) 01/28/17 19:44 Baso # 0.1 K/mm3 (0.0-0.1) 01/28/17 19:44 Seg Neutrophils % 73.5 % (40.0-70.0) H 01/28/17 19:44 Seg Neutrophils # 3.8 K/mm3 (1.8-7.7) 01/28/17 19:44 PT 13.6 Sec. (12.2-14.9) 01/28/17 19:44 INR 0.99 (0.87-1.13) 01/28/17 19:44 APTT 32.6 Sec. (24.2-36.6) 01/28/17 19:44 Sodium 138 mmol/L (137-145) 01/28/17 20:01 Potassium 4.9 mmol/L (3.6-5.0) 01/28/17 20:01 Chloride 96.4 mmol/L (98-107) L 01/28/17 20:01 Carbon Dioxide 22 mmol/L (22-30) 01/28/17 20:01 Anion Gap 25 mmol/L 01/28/17 20:01 BUN 26 mg/dL (7-17) H 01/28/17 20:01 Creatinine 4.3 mg/dL (0.7-1.2) H 01/28/17 20:01 Estimated GFR 10 ml/min 01/28/17 20:01 BUN/Creatinine Ratio 6 % 12/05/17 20:01 Glucose 202 mg/dL (65-100) H 01/28/17 20:01 Calcium 7.5 mg/dL (8.4-10.2) L 01/28/17 20:01 Troponin T 0.058 ng/mL (0.00-0.029) H 01/29/17 01:46 Triglycerides 49 mg/dL (2-149) 01/28/17 20:01 Cholesterol 122 mg/dL (50-199) 01/28/17 20:01 LDL Cholesterol Direct 56 mg/dL (50-130) 01/28/17 20:01 HDL Cholesterol 57 mg/dL (40-59) 01/28/17 20:01 Cholesterol/HDL Ratio 2.14 % 01/28/17 20:01 - Imaging and Cardiology Chest x-ray: image reviewed (pulmonary venous congestion) Assessment and Plan Assessment and plan: Patient is a 67-year-old female with past medical history of Atrial fibrillation, ESRD on dialysis, Hepatitis C, Pulmonary HTN, CVA, COPD on home oxygen, chronic Hypotension permanent pacemaker and diastolic heart failure, who presents to emergency department for complaining of midsternal chest pain. Chest Pain We will admit to telemetry floor. EKG normal sinus rate [address] elevation or T-wave inversion. Negative cardiac enzyme troponin X1 and we will get serial troponin Start on aspirin Nitroglycerin when necessary Morphine ordered for pain Stress test ordered. Acute COPD exacerbation Continue on Duoneb every 6 hours Wean IV steroid Solumedrol Initiated empiric IV Rocephin and azithromycin Oxygen as necessary Chronic diastolic Congestive heart failure Recent Echocardiogram with preserved ejection fraction, 55% on echocardiogram. Recent normal myocardial perfusion thallium stress test Resume Diuresis, beta blockers and ACEI/ARB Strict I&O's and daily weights Low-sodium/cardiac diet/fluid restriction Closely monitor electrolytes Cardiology evaluation End-stage renal disease on dialysis Patient will have urgent dialysis today Nephrology consulted Diabetes mellitus Accu-Chek before meals and at bedtime Sliding scale insulin/NovoLog ADA carbohydrate consistent diet Chronic anemia H&H stable for patient at this point; no blood transfusions needed Closely monitor H&H Atrial fibrillation with RVR Rate controlled with Lopressor Not a candidate for oral anticoagulation due to severe anemia and prior GI bleed Cardiology consulted Right neck swelling Wewill get CT of the cervical spine Closely monitor GERD Resume PO Protonix DVT prophylaxis Heparin Advance Directives: Yes VTE prophylaxis?: Chemical Contraindication Mechanical VTE Prophylaxis: Contraindicated Plan of care discussed with patient/family: Yes <SANTOSH MOELLER R - Last Filed: 01/29/17 13:27> History of Present Illness Date of admission: 01/29/17 04:50 Medications and Allergies Active Meds: Active Medications Albuterol/Ipratropium (Duoneb *Not For Prn Use*) 1 ampul IH Q6HRT REPLACED BY [facility] Allopurinol (Zyloprim) 100 mg PO QDAY REPLACED BY [facility] Last Admin: 01/29/17 12:50 Dose: 100 mg Aspirin (Baby Aspirin) 81 mg PO QDAY REPLACED BY [facility] Benzonatate (Tessalon Perles) 100 mg PO Q8HR REPLACED BY [facility] Calcium/Vitamin D ([place] D 500 Mg-200 Unit) 1 each PO DAILY REPLACED BY [facility] Dextrose (D50w (25gm) Syringe) 50 ml IV PRN PRN PRN Reason: Hypoglycemia Furosemide (Lasix) 80 mg PO QDAY REPLACED BY [facility] Last Admin: 01/29/17 12:49 Dose: 80 mg Gabapentin (Neurontin) 200 mg PO TID REPLACED BY [facility] Azithromycin 500 mg/ Sodium (Chloride) 250 mls @ 250 mls/hr IV Q24HR REPLACED BY [facility] Insulin Aspart (Novolog) 0 units SUB-Q AC REPLACED BY [facility] PRN Reason: Protocol Insulin Detemir (Levemir) 15 units SUB-Q QHS REPLACED BY [facility] Insulin Human Regular (Novolin R) 0 units SUB-Q AC REPLACED BY [facility] PRN Reason: Protocol Loperamide HCl (Imodium) 2 mg PO DAILY PRN PRN Reason: Diarrhea Megestrol Acetate (Megace) 20 mg PO BID REPLACED BY [facility] Last Admin: 01/29/17 12:50 Dose: 20 mg Methylprednisolone Sodium Succinate (Solu-Medrol) 80 mg IV Q8HR REPLACED BY [facility] Midodrine (Proamatine) 2.5 mg PO TID REPLACED BY [facility] Miscellaneous Medication (Macitentan [Opsumit]) 10 mg PO QDAY REPLACED BY [facility] Morphine Sulfate (Morphine) 2 mg IV Q4H PRN PRN Reason: Pain, Moderate (4-6) Last Admin: 01/29/17 12:10 Dose: 2 mg Multivit/Ca Carb/B Cmplx/FA/Prenat (Renal Caps) 1 cap PO QDAY REPLACED BY [facility] Last Admin: 01/29/17 12:49 Dose: 1 cap Nitroglycerin (Nitrostat) 0.4 mg SL .Q5MIN PRN PRN Reason: Chest Pain Ondansetron HCl (Zofran) 4 mg IV Q4H PRN PRN Reason: N/V IF NPO AND NO IV ACCESS Last Admin: 01/29/17 12:10 Dose: 4 mg Pantoprazole Sodium (Protonix) 40 mg PO BID REPLACED BY [facility] Last Admin: 01/29/17 12:49 Dose: 40 mg Sertraline HCl (Zoloft) 50 mg PO QDAY REPLACED BY [facility] Last Admin: 01/29/17 12:49 Dose: 50 mg Exam - Constitutional Vitals: Temp Pulse Resp BP Pulse Ox 98.8 F 70 20 123/53 97 01/29/17 07:25 01/29/17 07:25 01/29/17 07:25 01/29/17 07:25 01/29/17 07:25 Results - Labs CBC & Chem 7: 01/28/17 19:44 01/28/17 20:01 Labs: Laboratory Last Values WBC 5.2 K/mm3 (4.5-11.0) 01/28/17 19:44 RBC 2.99 M/mm3 (3.65-5.03) L 01/28/17 19:44 Hgb 8.8 gm/dl (10.1-14.3) L 01/28/17 19:44 Hct 28.7 % (30.3-42.9) L 01/28/17 19:44 MCV 96 fl (79-97) 01/28/17 19:44 MCH 30 pg (28-32) 01/28/17 19:44 MCHC 31 % (30-34) 01/28/17 19:44 RDW 19.1 % (13.2-15.2) H 01/28/17 19:44 Plt Count 171 K/mm3 (140-440) 01/28/17 19:44 Lymph % (Auto) 9.2 % (13.4-35.0) L 01/28/17 19:44 [place] % (Auto) 9.2 % (0.0-7.3) H 01/28/17 19:44 Eos % (Auto) 7.0 % (0.0-4.3) H 01/28/17 19:44 Baso % (Auto) 1.1 % (0.0-1.8) 01/28/17 19:44 Lymph # 0.5 K/mm3 (1.2-5.4) L 01/28/17 19:44 [place] # 0.5 K/mm3 (0.0-0.8) 01/28/17 19:44 Eos # 0.4 K/mm3 (0.0-0.4) 01/28/17 19:44 Baso # 0.1 K/mm3 (0.0-0.1) 01/28/17 19:44 Seg Neutrophils % 73.5 % (40.0-70.0) H 01/28/17 19:44 Seg Neutrophils # 3.8 K/mm3 (1.8-7.7) 01/28/17 19:44 PT 13.6 Sec. (12.2-14.9) 01/28/17 19:44 INR 0.99 (0.87-1.13) 01/28/17 19:44 APTT 32.6 Sec. (24.2-36.6) 01/28/17 19:44 Sodium 138 mmol/L (137-145) 01/28/17 20:01 Potassium 4.9 mmol/L (3.6-5.0) 01/28/17 20:01 Chloride 96.4 mmol/L (98-107) L 01/28/17 20:01 Carbon Dioxide 22 mmol/L (22-30) 01/28/17 20:01 Anion Gap 25 mmol/L 01/28/17 20:01 BUN 26 mg/dL (7-17) H 01/28/17 20:01 Creatinine 4.3 mg/dL (0.7-1.2) H 01/28/17 20:01 Estimated GFR 10 ml/min 01/28/17 20:01 BUN/Creatinine Ratio 6 % 01/28/17 20:01 Glucose 202 mg/dL (65-100) H 01/28/17 20:01 POC Glucose 218 (70-105) H 01/29/17 12:18 Calcium 7.5 mg/dL (8.4-10.2) L 01/28/17 20:01 Troponin T 0.058 ng/mL (0.00-0.029) H 01/29/17 01:46 Triglycerides 49 mg/dL (2-149) 01/28/17 20:01 Cholesterol 122 mg/dL (50-199) 01/28/17 20:01 LDL Cholesterol Direct 56 mg/dL (50-130) 01/28/17 20:01 HDL Cholesterol 57 mg/dL (40-59) 01/28/17 20:01 Cholesterol/HDL Ratio 2.14 % 01/28/17 20:01 Assessment and Plan Assessment and plan: I saw and evaluated the patient. I agree with the findings and the plan of care as documented in the Nurse Practitioner's~note, with the following corrections and additions. D/w Dr. Mendez, concerned about right anterior neck swelling and superior vena cava obstruction, will get CT neck and chest
[2017-01-29] MEDS: ZOFRAN IV PRN ×2 (12:10→20:50)
[2017-01-29] MEDS: LASIX PO SCH (12:49)
[2017-01-29] MEDS: Renal Caps PO SCH (12:49)
[2017-01-29] MEDS: ZOLOFT PO SCH (12:49)
[2017-01-29] MEDS: PROTONIX PO SCH ×2 (12:49→21:23)
[2017-01-29] MEDS: ZYLOPRIM PO SCH (12:50)
[2017-01-29] MEDS: MEGACE PO SCH ×2 (12:50→21:22)
[2017-01-29] MEDS ORDERED: D50W (25GM) Syringe IV PRN (13:07)
[2017-01-29] MEDS ORDERED: D50W (25GM) Vial IV PRN (13:28)
[2017-01-29] MEDS: DUONEB *Not for PRN Use IH SCH ×2 (15:01→20:38)
[2017-01-29] MEDS: ZITHROMAX 500 MG in NACL 0.9% 250ML 250 ML IV SCH (15:46)
--- NOTE | 2017-01-29 15:47 | Consultation ---
History of Present Illness - Reason for Consult Consult date: 01/29/17 end stage renal disease Requesting physician: SANTOSH MOELLER - History of Present Illness Patient is a 67-year-old female with past medical history of Atrial fibrillation , ESRD on dialysis, Hepatitis C, Pulmonary HTN, CVA, COPD on home oxygen, chronic Hypotension permanent pacemaker and diastolic heart failure, who presents to emergency department for complaining of midsternal chest pain. She does not speak Togolese but her at bedside speaks fair Togolese. She states that the pain began 4 days ago but last night got worst intermittent midsternal chest pain. The pain was located over her substernal somewhat in the left epigastric area. She describes the quality as a chest tightness/pressure with radiation to the left shoulder and back. The painful episodes did not increase in intensity or severity during this time. The patient denies chest pain at present time. Patient stated that she has been nauseated all morning. Patient reported begin lightheaded shortness of breath, dizziness and heart palpitations, diaphoresis including feeling clammy.At the ED the patient was given nitroglycerin and ASA which she claims helped alleviate the pain somewhat. No aggravating factors. The patient has had extensive cardiac workup in the past. Past History Past Medical History: COPD ( , ESRD on dialysis, Hepatitis C, Pulmonary HTN, CVA , COPD on home oxygen, chronic Hypotension permanent pacemaker and diastolic heart failure,), diabetes, ESRD, heart failure, hepatitis, stroke, other ( Atrial fibrillation, hepatitis C, Pulmonary HTN, Hypotension permanent pacemaker ) Past Surgical History: Other (permanent pacemaker and dialysis access) Social history: full code. denies: smoking, alcohol abuse Family history: diabetes, hypertension Review of Systems Constitutional: no fever, no chills Ears, nose, mouth and throat: no tinnitis, no decreased hearing, no nose pain, no nasal congestion Breasts: no change in shape, no swelling Cardiovascular: chest pain, lightheadedness, shortness of breath, dyspnea on exertion, paroxysmal nocturnal dyspnea, no orthopnea, no palpitations Respiratory: shortness of breath, dyspnea on exertion Gastrointestinal: nausea, no vomiting, no constipation Genitourinary Female: no flank pain, no menorrhagia, no dysuria Rectal: no incontinence, no bleeding Musculoskeletal: no shooting arm pain, no arm numbness/tingling, no low back pain Integumentary: no wounds, no jaundice, no boils Neurological: no weakness, no parathesias, no numbness, no tingling Psychiatric: no change in sleep habits, no sleep disturbances, no insomnia, no hypersomnia Endocrine: no cold intolerance, no heat intolerance, no polyphagia Hematologic/Lymphatic: no easy bruising, no easy bleeding Allergic/Immunologic: no urticaria, no allergic rhinitis, no wheezing Past History Past Medical History: COPD ( , ESRD on dialysis, Hepatitis C, Pulmonary HTN, CVA , COPD on home oxygen, chronic Hypotension permanent pacemaker and diastolic heart failure,), diabetes, ESRD, heart failure, hepatitis, stroke, other ( Atrial fibrillation, hepatitis C, Pulmonary HTN, Hypotension permanent pacemaker ) Past Surgical History: Other (permanent pacemaker and dialysis access) Social history: full code. denies: smoking, alcohol abuse Family history: diabetes, hypertension Medications and Allergies Allergies Allergy/AdvReac Type Severity Reaction Status Date / Time No Known Allergies Allergy Verified 09/06/16 12:20 Home Medications Medication Instructions Recorded Confirmed Last Taken Type Allopurinol [Zyloprim] 100 mg PO QDAY 09/24/15 01/28/17 2 Days Ago History ~12/19/16 1 Gabapentin [Neurontin] 200 mg PO TID 09/24/15 01/28/17 1 Day Ago History ~12/20/16 Midodrine [Proamatine] 2.5 mg PO TID 09/24/15 01/28/17 2 Days Ago History ~12/19/16 Furosemide [Lasix TAB] 80 mg PO QDAY 06/04/16 01/28/17 2 Days Ago History ~12/19/16 B Complex 11/Folic/C/Biot/Zinc 1 tab PO QDAY 08/09/16 01/28/17 2 Days Ago History [Dialyvite with Zinc Tablet] ~12/19/16 Macitentan [Opsumit] 10 mg PO QDAY 08/09/16 01/28/17 2 Days Ago History ~12/19/16 Pantoprazole [Protonix TAB] 40 mg PO BID #60 tablet 08/13/16 01/28/17 2 Days Ago Rx ~12/19/16 Hmpcf-C-Iczlhiprzwxqw [Beano] 1 each PO PRN 09/06/16 01/28/17 2 Days Ago History ~12/19/16 Benzonatate [Tessalon Perles] 100 mg PO Q8HR 09/06/16 01/28/17 2 Days Ago History ~12/19/16 Calcium Phosphate Trib/Vit D3 1 each PO DAILY 09/06/16 01/28/17 2 Days Ago History [Calcium + Vitamin D3 Gummies] ~12/19/16 Loperamide [Imodium] 2 mg PO DAILY PRN 09/06/16 01/28/17 1 Month Ago History ~11/21/16 Megestrol [Megace] 20 mg PO BID 09/06/16 01/28/17 2 Days Ago History ~12/19/16 Ondansetron [Zofran TAB] 4 mg PO Q8HR PRN 09/06/16 01/28/17 2 Days Ago History ~12/19/16 Sertraline [Zoloft] 50 mg PO QDAY 09/06/16 01/28/17 2 Days Ago History ~12/19/16 Aspirin [Aspirin BABY CHEW TAB] 81 mg PO Q48HR 01/28/17 01/28/17 Unknown History Active Meds: Active Medications Albuterol/Ipratropium (Duoneb *Not For Prn Use*) 1 ampul IH Q6HRT [facility] Last Admin: 01/29/17 15:01 Dose: 1 ampul Allopurinol (Zyloprim) 100 mg PO QDAY [facility] Last Admin: 01/29/17 12:50 Dose: 100 mg Aspirin (Baby Aspirin) 81 mg PO QDAY [facility] Benzonatate (Tessalon Perles) 100 mg PO Q8HR [facility] Calcium/Vitamin D ([place]ysco D 500 Mg-200 Unit) 1 each PO DAILY [facility] Dextrose (D50w (25gm) Vial) 25 gm IV PRN PRN PRN Reason: Hypoglycemia Furosemide (Lasix) 80 mg PO QDAY [facility] Last Admin: 01/29/17 12:49 Dose: 80 mg Gabapentin (Neurontin) 200 mg PO TID [facility] Azithromycin 500 mg/ Sodium (Chloride) 250 mls @ 250 mls/hr IV Q24HR [facility] Insulin Aspart (Novolog) 0 units SUB-Q AC [facility] PRN Reason: Protocol Insulin Detemir (Levemir) 15 units SUB-Q QHS [facility] Insulin Human Regular (Novolin R) 0 units SUB-Q AC [facility] PRN Reason: Protocol Loperamide HCl (Imodium) 2 mg PO DAILY PRN PRN Reason: Diarrhea Megestrol Acetate (Megace) 20 mg PO BID [facility] Last Admin: 01/29/17 12:50 Dose: 20 mg Methylprednisolone Sodium Succinate (Solu-Medrol) 80 mg IV Q8HR [facility] Midodrine (Proamatine) 2.5 mg PO TID [facility] Miscellaneous Medication (Macitentan [Opsumit]) 10 mg PO QDAY [facility] Morphine Sulfate (Morphine) 2 mg IV Q4H PRN PRN Reason: Pain, Moderate (4-6) Last Admin: 01/29/17 12:10 Dose: 2 mg Multivit/Ca Carb/B Cmplx/FA/Prenat (Renal Caps) 1 cap PO QDAY [facility] Last Admin: 01/29/17 12:49 Dose: 1 cap Nitroglycerin (Nitrostat) 0.4 mg SL .Q5MIN PRN PRN Reason: Chest Pain Ondansetron HCl (Zofran) 4 mg IV Q4H PRN PRN Reason: N/V IF NPO AND NO IV ACCESS Last Admin: 01/29/17 12:10 Dose: 4 mg Pantoprazole Sodium (Protonix) 40 mg PO BID [facility] Last Admin: 01/29/17 12:49 Dose: 40 mg Sertraline HCl (Zoloft) 50 mg PO QDAY [facility] Last Admin: 01/29/17 12:49 Dose: 50 mg Exam - Vital Signs Vital signs: Vital Signs Temp Pulse Resp BP Pulse Ox 98.6 F 54 L 18 116/48 98 01/28/17 20:02 01/28/17 20:02 01/28/17 20:02 01/28/17 20:02 01/28/17 20:02 - Physical Exam Narrative exam: General appearance: Present: no acute distress - EENT Eyes: Present: PERRL ENT: hearing intact - Neck Neck: Present: supple, normal ROM - Respiratory Respiratory effort: normal Respiratory: bilateral: diminished, wheezing - Cardiovascular Rhythm: regular Heart Sounds: Present: S1 & S2 - Abdominal General gastrointestinal: Present: soft, non-tender - Rectal Rectal Exam: deferred - Integumentary Integumentary: Present: clear (Right neck swelling ), warm, dry ( K I will will ahead) - Musculoskeletal Musculoskeletal: strength equal bilaterally - Psychiatric Psychiatric: appropriate mood/affect - Neurologic Neurologic: moves all extremities - Allied Health Allied health notes reviewed: nursing Results - Lab Results 01/28/17 19:44 01/28/17 20:01 Most recent lab results Calcium 7.5 mg/dL (8.4-10.2) L 01/28/17 20:01 Assessment and Plan Impression * Chest pain * End-stage renal disease on maintenance hemodialysis * anemia * volume overload * Chronic atrial fibrillation * Hypertension * Diabetes Recommendations * HD q MWF and prn * uf as tolerated * Renal diet * strict i/os * Monitor H&H and transfuse as needed * No IV, BP or venipuncture access arm * Adjust diet and meds for ESRD state
--- NOTE | 2017-01-29 17:01 | Event Note ---
Date: 01/29/17 67 year old female with ESRD with RUE AV access with upper extremity/neck swelling. NPO after [place] Fistulogram with possible intervention in AM.
[2017-01-29] MEDS: NOVOLOG SUB-Q SCH (18:23)
[2017-01-29] MEDS: TESSALON PERLES PO SCH ×2 (18:24→21:23)
[2017-01-29] MEDS: NEURONTIN PO SCH ×2 (18:24→21:23)
[2017-01-29] MEDS: PROAMATINE PO SCH ×2 (18:24→21:24)
[2017-01-29] MEDS ORDERED: NACL 0.9 (PRIMING MACHINE ONLY DIALYSIS) MC ONE (18:47)
[2017-01-29] MEDS ORDERED: PROVENTIL IH PRN (21:10)
[2017-01-29] MEDS: LEVEMIR SUB-Q SCH (23:14)
[2017-01-30 06:10] LABS: Calcium 7.8 mg/dL (8.4-10.2); Chloride 96.8 mmol/L (98-107); Potassium 5.1 mmol/L (3.6-5.0)
[2017-01-30 06:37] LABS: Basophils % (Auto) 0.3 % (0.0-1.8); Eosinophils % (Auto) 0.2 % (0.0-4.3); Hematocrit 28.5 % (30.3-42.9); Hemoglobin 8.8 gm/dl (10.1-14.3); Mean Corpuscular HGB Conc 31 % (30-34); Mean Corpuscular Hemoglobin 29 pg (28-32); Mean Corpuscular Volume 94 fl (79-97); Platelet Count 140 K/mm3 (140-440); Red Blood Count 3.02 M/mm3 (3.65-5.03); Red Cell Distribution Width 18.3 % (13.2-15.2)
[2017-01-30] MEDS ORDERED: ANCEF/STERILE WATER 2 GM/20 ML 2 GM/20 ML SYRINGE IV NR (07:00)
[2017-01-30] MEDS: NOVOLOG SUB-Q SCH ×3 (07:30→17:19)
[2017-01-30] MEDS: TESSALON PERLES PO SCH ×3 (07:30→22:10)
[2017-01-30] MEDS ORDERED: VERSED ONE (08:24)
[2017-01-30] MEDS ORDERED: HEPARIN/NS 5000 UNIT/500ML(CATH LAB) 500 ML IR ONE ×2 (08:24→09:22)
[2017-01-30] MEDS ORDERED: NACL 0.9% 250ML 250 ML ONE (08:24)
[2017-01-30] MEDS ORDERED: HEPARIN 10,000 UNITS/10 ML ONE (08:24)
[2017-01-30] MEDS ORDERED: XYLOCAINE 2% INFILTRATI ONE (08:24)
[2017-01-30] MEDS ORDERED: SUBLIMAZE ONE (08:35)
[2017-01-30] MEDS ORDERED: ANCEF/STERILE WATER 2 GM/20 ML 2 GM/20 ML SYRINGE IV ONE (08:44)
[2017-01-30] MEDS: MACITENTAN 10 MG PO SCH ×2 (09:01→18:02)
[2017-01-30] MEDS: NEURONTIN PO SCH ×3 (09:16→22:25)
[2017-01-30] MEDS: PROAMATINE PO SCH ×2 (09:17→16:19)
--- NOTE | 2017-01-30 10:34 | Operative Report ---
Operative Report Operative Report: EXAM: 1. Ultrasound guided access of the right arm AV fistula towards the venous outflow 2. Fistulogram 3. Angioplasty of the right innominate vein with a 12 mm angioplasty balloon 4. Ultrasound guided access of the right arm AV fistula towards the anastomosis 5. Angioplasty of the proximal right AV fistula with the 8 mm angioplasty balloon 6. Selection of the brachial artery in a retrograde fashion with angiography of the right upper extremity 7. Angioplasty of the anastomosis and perianastomotic portion with a 5 mm angioplasty balloon DATE: 01/30/17 GRAIN PROCESSOR: KATT CARROLL MD INDICATION: Decreased thrill in the right upper extremity with increased swelling of the right neck MEDICATIONS: Please see nursing report for full details. DEVICES: 5 mm, 8 mm, and 12 mm angioplasty balloons PROCEDURE: The risks, benefits, and alternatives of the procedure were discussed and written informed consent was obtained. The patient was transported in stable condition to the angiography suite. The patient's right arm AV fistula was assessed by ultrasound and was patent. The patient was prepped and draped in a sterile fashion. Under ultrasound guidance, the right arm AV brachiocephalic fistula was accessed with a 21-gauge micropuncture needle. The area was anesthetized prior to access. 0.018 inch wire was advanced through the micropuncture needle into the fistula and then the needle was exchanged for a 5 Burmese transitional dilator. The inner dilator and wire were removed and a 0.035 inch wire was advanced through the venous outflow. The transitional dilator was exchanged for a 7 Burmese short sheath. Fistulogram was performed of the venous outflow and central veins. Fistulogram demonstrated patency of the midportion of the cephalic vein and distal cephalic vein with patency of the right subclavian vein and SVC. There is a severe right innominate vein narrowing. Angioplasty was performed of the right innominate vein narrowing with a 12 mm angioplasty balloon. After angioplasty, there was only mild residual narrowing. I attempted to reflex contrast, but I could not reflux contrast into the fistula. I therefore decided to puncture in a retrograde fashion. Under ultrasound guidance, the right arm AV brachiocephalic fistula was accessed with a 21-gauge micropuncture needle towards the anastamosis. The area was anesthetized prior to access. 0.018 inch wire was advanced through the micropuncture needle into the fistula and then the needle was exchanged for a 5 Burmese transitional dilator. The inner dilator and wire were removed and a 0.035 inch wire was advanced through the perianastamotic portion of the fistula. The transitional dilator was exchanged for a 6 Burmese short sheath. Digital subtraction angiography was performed demonstrating moderate in-stent restenosis of the stent in the midportion of the brachiocephalic AV fistula with an abnormal contour, and a moderate anastomotic and perianastomotic narrowing. Using a Glidewire and an angled catheter, was able to negotiate the wire into the brachial artery and a retrograde fashion. Digital subtraction angiography demonstrated patency of the brachial artery proximal to the anastomosis which was hypertrophic, and distal to the anastomosis. The proximal ulnar artery, interosseous artery, and radial artery were patent. 8 mm angioplasty balloon was used to perform angioplasty of the in-stent restenosis. There is only mild residual narrowing. 5 mm angioplasty balloon was used to perform angioplasty of the anastomosis and perianastomotic portion of the AV fistula. There is only mild residual narrowing. The wire was removed from both sheaths and each site was closed with a 3-0 Vicryl suture at time of sheath removed. Hemostasis was achieved with slight manual compression. The patient was transported from the angiography suite to the floor in stable condition. IMPRESSION: 1. Successful angioplasty of the central veins of the right upper extremity brachiocephalic AV fistula. 2. Successful angioplasty of the peripheral vein/fistula of the right upper extremity brachiocephalic AV fistula. 3. Successful fistulogram with angioplasty.
[2017-01-30] MEDS: ZITHROMAX 500 MG in NACL 0.9% 250ML 250 ML IV SCH (10:42)
--- NOTE | 2017-01-30 11:00 | Progress Note ---
Assessment and Plan Assessment and plan: Patient is a 67-year-old woman with past medical history of Atrial fibrillation , ESRD on dialysis, Hepatitis C, Pulmonary HTN, CVA, chronic hypoxic respiratory failure due to end stage COPD on home oxygen, chronic Hypotension, permanent pacemaker and diastolic heart failure, who presented to [facility] emergency department with chest pains, sob. Chest Pain We will admit to telemetry floor. EKG normal sinus rate [address] elevation or T-wave inversion. Negative cardiac enzyme troponin X1 and we will get serial troponin Started on aspirin Nitroglycerin when necessary Morphine ordered for pain Cardiology is following Acute COPD exacerbation Continue on Duoneb every 6 hours Wean IV steroid Solumedrol Initiated empiric IV Rocephin and azithromycin Oxygen as necessary Chronic diastolic Congestive heart failure Recent Echocardiogram with preserved ejection fraction, 55% on echocardiogram. Recent normal myocardial perfusion thallium stress test Resume Diuresis, beta blockers and ACEI/ARB Strict I&O's and daily weights Low-sodium/cardiac diet/fluid restriction Closely monitor electrolytes Cardiology evaluation End-stage renal disease on dialysis urgent dialysis done Nephrology following Diabetes mellitus type 2, uncontrolled with hyperglycemia Accu-Chek before meals and at bedtime added Sliding scale insulin/NovoLog ADA carbohydrate consistent diet Chronic anemia Closely monitor H&H Atrial fibrillation with RVR treated with Lopressor Not a candidate for oral anticoagulation due to severe anemia and prior GI bleed Cardiology consulted Right neck swelling,possible related to emphysema vs svc obstruction vs HD fistula related vs other considerations Wewill get CT of the cervical spine and chest r/o svc syndrome or obstruction, no contrast due to renal disease. This test was cancelled yesterday, vague details from nursing and CT department. I had to re-order test after her fistulogram, see below Closely monitor GERD Resume PO Protonix DVT prophylaxis sq Heparin 01/30/17 EXAM: 1. Ultrasound guided access of the right arm AV fistula towards the venous outflow 2. Fistulogram 3. Angioplasty of the right innominate vein with a 12 mm angioplasty balloon 4. Ultrasound guided access of the right arm AV fistula towards the anastomosis 5. Angioplasty of the proximal right AV fistula with the 8 mm angioplasty balloon 6. Selection of the brachial artery in a retrograde fashion with angiography of the right upper extremity 7. Angioplasty of the anastomosis and perianastomotic portion with a 5 mm angioplasty balloon SHADE CLASSIFIER: KATT CARROLL MD History Interval history: Patient seen and examined. Follow up for cp and sob. No new issues. does the Latvian interpreting. Hospitalist Physical - Physical exam Narrative exam: General appearance: Present: no acute distress, wdwn - HEENT NCAT Eyes: Present: PERRL ENT: hearing intact - Neck Neck: Present: supple, normal ROM - Respiratory Respiratory effort: normal Respiratory: bilateral: diminished, wheezing - Cardiovascular Rhythm: regular Heart Sounds: Present: S1 & S2 - Abdominal General gastrointestinal: Present: soft, non-tender - Rectal Rectal Exam: deferred - Integumentary Integumentary: Present: clear (Right neck swelling ), warm, dry ( K I will will ahead) - Musculoskeletal Musculoskeletal: strength equal bilaterally - Psychiatric Psychiatric: appropriate mood/affect - Neurologic Neurologic: moves all extremities - Constitutional Vitals: Temp Pulse Resp BP Pulse Ox 98.9 F 70 18 122/58 99 01/30/17 07:47 01/30/17 07:47 01/30/17 07:47 01/30/17 07:47 01/30/17 07:47 General appearance: Present: no acute distress Results - Labs CBC & Chem 7: 01/30/17 05:20 01/30/17 05:20 Labs: Laboratory Last Values WBC 3.0 K/mm3 (4.5-11.0) L 01/30/17 05:20 RBC 3.02 M/mm3 (3.65-5.03) L 01/30/17 05:20 Hgb 8.8 gm/dl (10.1-14.3) L 01/30/17 05:20 Hct 28.5 % (30.3-42.9) L 01/30/17 05:20 MCV 94 fl (79-97) 01/30/17 05:20 MCH 29 pg (28-32) 01/30/17 05:20 MCHC 31 % (30-34) 01/30/17 05:20 RDW 18.3 % (13.2-15.2) H 01/30/17 05:20 Plt Count 140 K/mm3 (140-440) 01/30/17 05:20 Lymph % (Auto) 7.8 % (13.4-35.0) L 01/30/17 05:20 Pettis % (Auto) 1.7 % (0.0-7.3) 01/30/17 05:20 Eos % (Auto) 0.2 % (0.0-4.3) 01/30/17 05:20 Baso % (Auto) 0.3 % (0.0-1.8) 01/30/17 05:20 Lymph # 0.2 K/mm3 (1.2-5.4) L 01/30/17 05:20 Pettis # 0.1 K/mm3 (0.0-0.8) 01/30/17 05:20 Eos # 0.0 K/mm3 (0.0-0.4) 01/30/17 05:20 Baso # 0.0 K/mm3 (0.0-0.1) 01/30/17 05:20 Seg Neutrophils % 90.0 % (40.0-70.0) H 01/30/17 05:20 Seg Neutrophils # 2.7 K/mm3 (1.8-7.7) 01/30/17 05:20 PT 13.6 Sec. (12.2-14.9) 01/28/17 19:44 INR 0.99 (0.87-1.13) 01/28/17 19:44 APTT 32.6 Sec. (24.2-36.6) 01/28/17 19:44 Sodium 137 mmol/L (137-145) 01/30/17 05:20 Potassium 5.1 mmol/L (3.6-5.0) H 01/30/17 05:20 Chloride 96.8 mmol/L (98-107) L 01/30/17 05:20 Carbon Dioxide 23 mmol/L (22-30) 01/30/17 05:20 Anion Gap 22 mmol/L 01/30/17 05:20 BUN 28 mg/dL (7-17) H 01/30/17 05:20 Creatinine 4.7 mg/dL (0.7-1.2) H 01/30/17 05:20 Estimated GFR 9 ml/min 01/30/17 05:20 BUN/Creatinine Ratio 6 % 01/30/17 05:20 Glucose 222 mg/dL (65-100) H 01/30/17 05:20 POC Glucose 303 (70-105) H 01/29/17 22:43 Calcium 7.8 mg/dL (8.4-10.2) L 01/30/17 05:20 Troponin T 0.058 ng/mL (0.00-0.029) H 01/29/17 01:46 Triglycerides 49 mg/dL (2-149) 01/28/17 20:01 Cholesterol 122 mg/dL (50-199) 01/28/17 20:01 LDL Cholesterol Direct 56 mg/dL (50-130) 01/28/17 20:01 HDL Cholesterol 57 mg/dL (40-59) 01/28/17 20:01 Cholesterol/HDL Ratio 2.14 % 01/28/17 20:01
--- NOTE | 2017-01-30 12:46 | Cat Scan Report ---
FINAL REPORT PROCEDURE: CT CHEST WO CON TECHNIQUE: Axial sections and coronal and sagittal reformatted images were through the chest. HISTORY: R/O vena cava syndrome COMPARISON: AP chest 08/02/2016 FINDINGS: Evaluation is somewhat limited due to lack of IV contrast. There is an intracardiac device in place, power source implanted within the left anterior thoracic subcutaneous fat. There is no dilatation of the SVC or jugular veins. Right lobe thyroid goiter with mild superior intrathoracic extension is noted. There is no gross hilar or mediastinal lymphadenopathy. The heart is significantly enlarged with small pericardial effusion. Views of the upper abdomen demonstrate bilateral upper pole renal cysts 1.8 centimeters on the left and 2.1 centimeters on the right as well as tiny gallstones. Mild bilateral dependent as well as bibasilar subsegmental atelectasis is present. Subtle parahilar ground-glass opacity is present. There is no pulmonary parenchymal mass or nodule. No acute osseous abnormality is present. IMPRESSION: No evidence of SVC syndrome. Significant cardiomegaly with intracardiac device in place. Small pericardial effusion. Bilateral parahilar ground-glass opacity may reflect mild pulmonary edema. Tiny gallstones. Bilateral renal cysts. Mild right lobe thyroid goiter.
--- NOTE | 2017-01-30 12:55 | Cat Scan Report ---
FINAL REPORT PROCEDURE: CT NECK WO CON TECHNIQUE: Axial sections and coronal and sagittal reformatted images were viewed through the soft tissue neck. HISTORY: R/O vena cava syndrome COMPARISON: None FINDINGS: 12 x 15 millimeter polypoidal mucosal thickening of the floor of the left maxillary sinus is present. Lack of IV contrast limits evaluation of the soft tissues. There is no evident lymphadenopathy. There is no abscess. Few calcifications of the thyroid gland with right lobe goiter is present. The intrinsic tongue musculature is intact. The epiglottis, aryepiglottic folds, piriform sinuses, and larynx are normal. There is no abnormality of the parotid or submandibular glands. The nasopharyngeal and oral pharyngeal mucosa is intact. There is no parapharyngeal lesion. There is no mass along the structures of the carotid sheaths. The right jugular vein is dominant without obstructive lesion seen. Degenerative changes of the spine are present worst at C6/C7. Subtle anterior listhesis of the C5 on C6 vertebral body is present. IMPRESSION: Mild right lobe thyroid goiter. Consider follow-up with elective thyroid ultrasound. 12 x 15 millimeter polypoidal mucosal thickening of the floor of the left maxillary sinus. Degenerative changes of the cervical spine worst at C6/C7. Subtle anterior listhesis of the C5 on C6 vertebral body. If cervical symptomatology is present obtain elective follow-up with MRI.
--- NOTE | 2017-01-30 13:21 | Progress Note ---
Assessment and Plan Impression * Chest pain * End-stage renal disease on maintenance hemodialysis * anemia * volume overload * Chronic atrial fibrillation * Hypertension * Diabetes Recommendations * HD q MWF and prn * uf as tolerated * Renal diet * strict i/os * Monitor H&H and transfuse as needed * No IV, BP or venipuncture access arm * Adjust diet and meds for ESRD state Subjective Date of service: 01/30/17 Objective - Vital Signs Vital signs: Vital Signs - 12hr 01/30/17 01/30/17 01/30/17 03:38 05:50 07:47 Temperature 97.9 F 98.9 F Pulse Rate 70 71 70 Respiratory 20 18 Rate Blood Pressure 115/54 Blood Pressure 122/58 [Left] O2 Sat by Pulse 99 99 Oximetry - Lab 01/30/17 05:20 01/30/17 05:20 Most recent lab results Calcium 7.8 mg/dL (8.4-10.2) L 01/30/17 05:20
--- NOTE | 2017-01-30 15:43 | Progress Note ---
Assessment and Plan Impression * Chest pain * End-stage renal disease on maintenance hemodialysis * anemia * volume overload * Chronic atrial fibrillation * Hypertension * Diabetes Recommendations * HD q TTHSAT and prn * needs to stay on hd and allow uf * uf as tolerated * Renal diet * strict i/os * Monitor H&H and transfuse as needed * No IV, BP or venipuncture access arm * Adjust diet and meds for ESRD state Subjective Date of service: 01/30/17 Principal diagnosis: esrd Interval history: resting in bed today Objective - Exam Narrative Exam: General appearance: Present: no acute distress - EENT Eyes: Present: PERRL ENT: hearing intact - Neck Neck: Present: supple, normal ROM - Respiratory Respiratory effort: normal Respiratory: bilateral: diminished, wheezing - Cardiovascular Rhythm: regular Heart Sounds: Present: S1 & S2 - Abdominal General gastrointestinal: Present: soft, non-tender - Rectal Rectal Exam: deferred - Integumentary Integumentary: Present: clear (Right neck swelling ), warm, dry ( K I will will ahead) - Musculoskeletal Musculoskeletal: strength equal bilaterally - Psychiatric Psychiatric: appropriate mood/affect - Neurologic Neurologic: moves all extremities - Allied Health Allied health notes reviewed: nursing - Vital Signs Vital signs: Vital Signs - 12hr 01/30/17 01/30/17 05:50 07:47 Temperature 97.9 F 98.9 F Pulse Rate 71 70 Respiratory 20 18 Rate Blood Pressure 115/54 Blood Pressure 122/58 [Left] O2 Sat by Pulse 99 99 Oximetry - Lab 01/30/17 05:20 01/30/17 05:20 Most recent lab results Calcium 7.8 mg/dL (8.4-10.2) L 01/30/17 05:20
--- NOTE | 2017-01-30 15:58 | Progress Note ---
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 Chronic Kidney Disease, on HD Anemia Chronic viral hepatitis C Nonrheumatic tricuspid (valve) insufficiency Hx of cerebrovascular disease Pacemaker/cardiac insitu Conservative cardiac management. Subjective Date of service: 01/30/17 Principal diagnosis: esrd Interval history: No distress noted. Objective Vital Signs Temp Pulse Pulse Resp Resp BP BP 01/30/17 07:47 98.9 F 70 18 122/58 01/30/17 05:50 97.9 F 71 20 115/54 01/30/17 03:38 70 01/29/17 22:00 20 01/29/17 21:21 20 01/29/17 20:51 18 01/29/17 20:48 74 18 01/29/17 20:38 70 18 01/29/17 20:14 99.0 F 18 128/56 01/29/17 19:30 69 131/55 01/29/17 19:15 98.0 F 70 18 136/50 01/29/17 19:00 70 133/66 01/29/17 18:45 70 124/57 01/29/17 18:30 70 109/54 01/29/17 18:15 78 112/74 01/29/17 18:00 70 111/56 01/29/17 17:45 70 126/80 01/29/17 17:30 69 121/54 01/29/17 17:15 70 137/65 01/29/17 17:00 70 116/62 01/29/17 16:45 70 106/53 01/29/17 16:30 98.0 F 69 18 102/59 Pulse Ox 01/30/17 07:47 99 01/30/17 05:50 99 01/30/17 03:38 01/29/17 22:00 01/29/17 21:21 01/29/17 20:51 01/29/17 20:48 01/29/17 20:38 01/29/17 20:14 01/29/17 19:30 01/29/17 19:15 01/29/17 19:00 01/29/17 18:45 01/29/17 18:30 01/29/17 18:15 01/29/17 18:00 01/29/17 17:45 01/29/17 17:30 01/29/17 17:15 01/29/17 17:00 01/29/17 16:45 01/29/17 16:30 - Physical Examination General: No Apparent Distress HEENT: Positive: PERRL Cardiac: Positive: Reg Rate and Rhythm Neuro: Positive: Grossly Intact - Labs and Meds CBC 01/30/17 Range/Units 05:20 WBC 3.0 L (4.5-11.0) K/mm3 RBC 3.02 L (3.65-5.03) M/mm3 Hgb 8.8 L (10.1-14.3) gm/dl Hct 28.5 L (30.3-42.9) % Plt Count 140 (140-440) K/mm3 Lymph # 0.2 L (1.2-5.4) K/mm3 [place] # 0.1 (0.0-0.8) K/mm3 Eos # 0.0 (0.0-0.4) K/mm3 Baso # 0.0 (0.0-0.1) K/mm3 Comprehensive Metabolic Panel 01/30/17 Range/Units 05:20 Sodium 137 (137-145) mmol/L Potassium 5.1 H (3.6-5.0) mmol/L Chloride 96.8 L (98-107) mmol/L Carbon Dioxide 23 (22-30) mmol/L BUN 28 H (7-17) mg/dL Creatinine 4.7 H (0.7-1.2) mg/dL Glucose 222 H (65-100) mg/dL Calcium 7.8 L (8.4-10.2) mg/dL
[2017-01-30] MEDS: BABY ASPIRIN PO SCH (16:15)
[2017-01-30] MEDS: LASIX PO SCH (16:15)
[2017-01-30] MEDS: PROTONIX PO SCH ×2 (16:16→22:26)
[2017-01-30] MEDS: Renal Caps PO SCH (16:16)
[2017-01-30] MEDS: OYSCO D 500 MG-200 UNIT PO SCH (16:17)
[2017-01-30] MEDS: ZOLOFT PO SCH (16:17)
[2017-01-30] MEDS: MEGACE PO SCH ×2 (16:18→22:00)
[2017-01-30] MEDS: ZYLOPRIM PO SCH (16:28)
[2017-01-31] MEDS: LEVEMIR SUB-Q SCH (02:34)
[2017-01-31] MEDS: MORPHINE IV PRN ×2 (03:12→16:36)
--- NOTE | 2017-01-31 08:16 | Query- Chest Pain ---
Keisha Mclean___Michael Date:___01/31/2017 [employer] Tender/CDS:___Joanne Phone#:___[phone] Exercise your independent professional judgment when responding to query. Questions asked do not imply a particular answer is desired or expected. We greatly appreciate your clarification on this issue. Clinical Documentation States: 67 Year old female was admitted on 01/28/2017 for Chest pain and SOB. The Hospitalist (Dr. Rodriguez) progress note states "Chest Pain. We will admit to telemetry floor. EKG normal sinus rate [address] elevation or T-wave inversion. Negative cardiac enzyme troponin X1 and we will get serial troponin Started on aspirin Nitroglycerin when necessary Morphine ordered for pain Cardiology is following." Please document the etiology of Chest Pain: [ ] Myocardial Infarction [ ] Pneumonia [ ] Mediastinitis [ ] Costochondritis [ ] Pulmonary Embolism [ ] Coronary Artery Disease [ ] GERD [ ] Other: [x ] Comment/Explanation:___please discharge summary Present on Admission: [ x] Yes (Y) [ ] Clinically undeterminable (W) [ ] No(N) Please document response in your Progress Notes and/or Discharge Summary and indicate if the condition was present on admission. LE
[2017-01-31] MEDS: TESSALON PERLES PO SCH ×2 (08:27→14:28)
[2017-01-31] MEDS: NOVOLOG SUB-Q SCH ×3 (08:29→16:35)
[2017-01-31] MEDS: NEURONTIN PO SCH ×2 (08:29→14:28)
[2017-01-31] MEDS: PROAMATINE PO SCH ×2 (08:33→14:28)
[2017-01-31] MEDS: Renal Caps PO SCH (09:01)
[2017-01-31] MEDS: BABY ASPIRIN PO SCH (09:02)
[2017-01-31] MEDS: LASIX PO SCH (09:02)
[2017-01-31] MEDS: PROTONIX PO SCH (09:02)
[2017-01-31] MEDS: ZOLOFT PO SCH (09:02)
[2017-01-31] MEDS: ZYLOPRIM PO SCH (09:02)
[2017-01-31] MEDS: OYSCO D 500 MG-200 UNIT PO SCH (09:02)
[2017-01-31] MEDS: MEGACE PO SCH (09:03)
[2017-01-31] MEDS: MACITENTAN 10 MG PO SCH (09:05)
[2017-01-31] MEDS ORDERED: ZITHROMAX PO SCH (10:00)
--- NOTE | 2017-01-31 11:18 | Progress Note ---
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 Chronic Kidney Disease, on HD Anemia Chronic viral hepatitis C Nonrheumatic tricuspid (valve) insufficiency Hx of cerebrovascular disease Pacemaker/cardiac insitu Recommendations: Patient advised fluid and salt restriction Her symptoms are due to volume overload and have been resolving after HD No further cardiac work-up Will sign off Subjective Date of service: 01/31/17 Principal diagnosis: esrd Interval history: Patient is feeling better today. Her chest tightness and shortness of breath have improved Objective Vital Signs Temp Pulse Resp BP Pulse Ox 01/31/17 10:00 69 123/64 01/31/17 09:30 98.3 F 69 18 115/57 01/31/17 07:27 98.5 F 70 20 120/60 99 01/31/17 05:51 98.8 F 70 18 102/48 99 01/31/17 02:29 72 105/54 01/31/17 02:16 110/54 01/30/17 19:11 97.3 F L 70 18 99/39 100 01/30/17 15:59 98.8 F 70 20 109/52 100 - Physical Examination General: No Apparent Distress HEENT: Positive: PERRL Neck: Positive: neck supple Cardiac: Positive: Reg Rate and Rhythm Lungs: Positive: Normal Exam Neuro: Positive: Grossly Intact
--- NOTE | 2017-01-31 12:56 | Progress Note ---
Assessment and Plan Assessment and plan: Patient is a 67-year-old woman with past medical history of Atrial fibrillation , ESRD on dialysis, Hepatitis C, Pulmonary HTN, CVA, chronic hypoxic respiratory failure due to end stage COPD on home oxygen, chronic Hypotension, permanent pacemaker and diastolic heart failure, who presented to [facility] emergency department with chest pains, sob. Chest Pain We will admit to telemetry floor. EKG normal sinus rate [address] elevation or T-wave inversion. Negative cardiac enzyme troponin X1 and we will get serial troponin Started on aspirin Nitroglycerin when necessary Morphine ordered for pain Cardiology is following Acute COPD exacerbation Continue on Duoneb every 6 hours Wean IV steroid Solumedrol Initiated empiric IV Rocephin and azithromycin Oxygen as necessary Chronic diastolic Congestive heart failure Recent Echocardiogram with preserved ejection fraction, 55% on echocardiogram. Recent normal myocardial perfusion thallium stress test Resume Diuresis, beta blockers and ACEI/ARB Strict I&O's and daily weights Low-sodium/cardiac diet/fluid restriction Closely monitor electrolytes Cardiology evaluation End-stage renal disease on dialysis urgent dialysis done Nephrology following Diabetes mellitus type 2, uncontrolled with hyperglycemia Accu-Chek before meals and at bedtime added Sliding scale insulin/NovoLog ADA carbohydrate consistent diet Chronic anemia Closely monitor H&H Atrial fibrillation with RVR treated with Lopressor Not a candidate for oral anticoagulation due to severe anemia and prior GI bleed Cardiology consulted Right neck swelling,possible related to emphysema vs svc obstruction vs HD fistula related vs other considerations Wewill get CT of the cervical spine and chest r/o svc syndrome or obstruction, no contrast due to renal disease. This test was cancelled yesterday, vague details from nursing and CT department. I had to re-order test after her fistulogram, see below Closely monitor GERD Resume PO Protonix DVT prophylaxis sq Heparin 01/30/17 EXAM: 1. Ultrasound guided access of the right arm AV fistula towards the venous outflow 2. Fistulogram 3. Angioplasty of the right innominate vein with a 12 mm angioplasty balloon 4. Ultrasound guided access of the right arm AV fistula towards the anastomosis 5. Angioplasty of the proximal right AV fistula with the 8 mm angioplasty balloon 6. Selection of the brachial artery in a retrograde fashion with angiography of the right upper extremity 7. Angioplasty of the anastomosis and perianastomotic portion with a 5 mm angioplasty balloon NURSE OB: KATT CARROLL MD per Cardiology, Dr. 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 Chronic Kidney Disease, on HD Anemia Chronic viral hepatitis C Nonrheumatic tricuspid (valve) insufficiency Hx of cerebrovascular disease Pacemaker/cardiac insitu Recommendations: Patient advised fluid and salt restriction Her symptoms are due to volume overload and have been resolving after HD No further cardiac work-up Will sign off History Interval history: Patient seen and examined. Follow up for cp and sob. No new issues. does the [place] interpreting. Hospitalist Physical - Physical exam Narrative exam: General appearance: Present: no acute distress, wdwn - HEENT NCAT Eyes: Present: PERRL ENT: hearing intact - Neck Neck: Present: supple, normal ROM - Respiratory Respiratory effort: normal Respiratory: bilateral: diminished, wheezing - Cardiovascular Rhythm: regular Heart Sounds: Present: S1 & S2 - Abdominal General gastrointestinal: Present: soft, non-tender - Rectal Rectal Exam: deferred - Integumentary Integumentary: Present: clear (Right neck swelling ), warm, dry ( K I will will ahead) - Musculoskeletal Musculoskeletal: strength equal bilaterally - Psychiatric Psychiatric: appropriate mood/affect - Neurologic Neurologic: moves all extremities - Constitutional Vitals: Temp Pulse Resp BP Pulse Ox 98.3 F 69 18 132/65 99 01/31/17 09:30 01/31/17 12:30 01/31/17 09:30 01/31/17 12:30 01/31/17 07:27 General appearance: Present: no acute distress Results - Labs CBC & Chem 7: 01/30/17 05:20 01/30/17 05:20 Labs: Laboratory Last Values WBC 3.0 K/mm3 (4.5-11.0) L 01/30/17 05:20 RBC 3.02 M/mm3 (3.65-5.03) L 01/30/17 05:20 Hgb 8.8 gm/dl (10.1-14.3) L 01/30/17 05:20 Hct 28.5 % (30.3-42.9) L 01/30/17 05:20 MCV 94 fl (79-97) 01/30/17 05:20 MCH 29 pg (28-32) 01/30/17 05:20 MCHC 31 % (30-34) 01/30/17 05:20 RDW 18.3 % (13.2-15.2) H 01/30/17 05:20 Plt Count 140 K/mm3 (140-440) 01/30/17 05:20 Lymph % (Auto) 7.8 % (13.4-35.0) L 01/30/17 05:20 [place] % (Auto) 1.7 % (0.0-7.3) 01/30/17 05:20 Eos % (Auto) 0.2 % (0.0-4.3) 01/30/17 05:20 Baso % (Auto) 0.3 % (0.0-1.8) 01/30/17 05:20 Lymph # 0.2 K/mm3 (1.2-5.4) L 01/30/17 05:20 [place] # 0.1 K/mm3 (0.0-0.8) 01/30/17 05:20 Eos # 0.0 K/mm3 (0.0-0.4) 01/30/17 05:20 Baso # 0.0 K/mm3 (0.0-0.1) 01/30/17 05:20 Seg Neutrophils % 90.0 % (40.0-70.0) H 01/30/17 05:20 Seg Neutrophils # 2.7 K/mm3 (1.8-7.7) 01/30/17 05:20 PT 13.6 Sec. (12.2-14.9) 01/28/17 19:44 INR 0.99 (0.87-1.13) 01/28/17 19:44 APTT 32.6 Sec. (24.2-36.6) 01/28/17 19:44 Sodium 137 mmol/L (137-145) 01/30/17 05:20 Potassium 5.1 mmol/L (3.6-5.0) H 01/30/17 05:20 Chloride 96.8 mmol/L (98-107) L 01/30/17 05:20 Carbon Dioxide 23 mmol/L (22-30) 01/30/17 05:20 Anion Gap 22 mmol/L 01/30/17 05:20 BUN 28 mg/dL (7-17) H 01/30/17 05:20 Creatinine 4.7 mg/dL (0.7-1.2) H 01/30/17 05:20 Estimated GFR 9 ml/min 01/30/17 05:20 BUN/Creatinine Ratio 6 % 01/30/17 05:20 Glucose 222 mg/dL (65-100) H 01/30/17 05:20 POC Glucose 216 (70-105) H 01/31/17 07:36 Calcium 7.8 mg/dL (8.4-10.2) L 01/30/17 05:20 Troponin T 0.058 ng/mL (0.00-0.029) H 01/29/17 01:46 Triglycerides 49 mg/dL (2-149) 01/28/17 20:01 Cholesterol 122 mg/dL (50-199) 01/28/17 20:01 LDL Cholesterol Direct 56 mg/dL (50-130) 01/28/17 20:01 HDL Cholesterol 57 mg/dL (40-59) 01/28/17 20:01 Cholesterol/HDL Ratio 2.14 % 01/28/17 20:01
--- NOTE | 2017-01-31 13:00 | Discharge Summary ---
Providers - Providers Date of Admission: 01/29/17 04:50 Date of discharge: 01/31/17 Attending physician: SANTOSH MOELLER 01/29/17 Consult to Cardiac Rehabilitation [CONS] Routine Reason For Exam: Phase 1 01/29/17 13:15 Consult to Physician [CONS] Routine Consulting Provider: NATHALIE BETH Reason For Exam: esrd on hd Place consult to:: office Notified:: yes If yes, spoke with:: cristina Asher called:: 13:45 Comment:: bert 01/29/17 15:06 Consult to Physician [CONS] Routine Consulting Provider: CHELSEY ANGEL Reason For Exam: to r/o stenosis right av access/neck swelling Place consult to:: office Notified:: yes Phone number called:: [phone] If yes, spoke with:: gail Time called:: 15:24 Comment:: bert Primary care physician: [employer] Hospitalization Condition: Stable Hospital course: Patient is a 67-year-old woman with past medical history of Atrial fibrillation , ESRD on dialysis, Hepatitis C, Pulmonary HTN, CVA, chronic hypoxic respiratory failure due to end stage COPD on home oxygen, chronic Hypotension, permanent pacemaker and diastolic heart failure, who presented to [facility] emergency department with chest pains, sob. Chest Pain related to a fluid overload We will admit to telemetry floor. EKG normal sinus rate [address] elevation or T-wave inversion. Negative cardiac enzyme troponin X1 and we will get serial troponin Started on aspirin Nitroglycerin when necessary Morphine ordered for pain Cardiology is following Acute COPD exacerbation Continue on Duoneb every 6 hours Wean IV steroid Solumedrol Initiated empiric IV Rocephin and azithromycin Oxygen as necessary Acute on Chronic diastolic heart failure, poa Recent Echocardiogram with preserved ejection fraction, 55% on echocardiogram. Recent normal myocardial perfusion thallium stress test Resume Diuresis, beta blockers and ACEI/ARB Strict I&O's and daily weights Low-sodium/cardiac diet/fluid restriction Closely monitor electrolytes Cardiology evaluation End-stage renal disease on dialysis urgent dialysis done Nephrology following Diabetes mellitus type 2, uncontrolled with hyperglycemia Accu-Chek before meals and at bedtime added Sliding scale insulin/NovoLog ADA carbohydrate consistent diet Chronic anemia Closely monitor H&H Atrial fibrillation with RVR treated with Lopressor Not a candidate for oral anticoagulation due to severe anemia and prior GI bleed Cardiology consulted Right neck swelling,possible related to emphysema vs svc obstruction vs HD fistula related vs other considerations Wewill get CT of the cervical spine and chest r/o svc syndrome or obstruction, no contrast due to renal disease. This test was cancelled yesterday, vague details from nursing and CT department. I had to re-order test after her fistulogram, see below Closely monitor GERD Resume PO Protonix DVT prophylaxis sq Heparin 01/30/17 EXAM: 1. Ultrasound guided access of the right arm AV fistula towards the venous outflow 2. Fistulogram 3. Angioplasty of the right innominate vein with a 12 mm angioplasty balloon 4. Ultrasound guided access of the right arm AV fistula towards the anastomosis 5. Angioplasty of the proximal right AV fistula with the 8 mm angioplasty balloon 6. Selection of the brachial artery in a retrograde fashion with angiography of the right upper extremity 7. Angioplasty of the anastomosis and perianastomotic portion with a 5 mm angioplasty balloon [employer] ADMINISTRATOR: KATT CARROLL MD per Cardiology, Dr. 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 Chronic Kidney Disease, on HD Anemia Chronic viral hepatitis C Nonrheumatic tricuspid (valve) insufficiency Hx of cerebrovascular disease Pacemaker/cardiac insitu Recommendations: Patient advised fluid and salt restriction Her symptoms are due to volume overload and have been resolving after HD No further cardiac work-up Will sign off Disposition: DC- TO HOME OR SELFCARE Time spent for discharge: 35 minutes Core Measure Documentation - Palliative Care Palliative Care/ Comfort Measures: Not Applicable - Core Measures Any of the following diagnoses?: heart failure - VTE Discharge Requirements Deep Vein Thrombosis/Pulmonary Embolism Present on Admission: No Has pt received <5 days of overlap therapy or INR<2.0: No Anticoagulant overlap therapy prescribed at discharge: No Contraindication No Overlap Therapy order at DC: Not Indicated - Heart Failure Discharge Requirements ELIOT/ARB for LVSD if EF <40%: No Reason for no ELIOT/ARB: Renal impairment Beta truong at discharge: No Reason for no beta truong on DC: Hypotension Exam - Physical Exam Narrative exam: General appearance: Present: no acute distress, wdwn - HEENT NCAT Eyes: Present: PERRL ENT: hearing intact - Neck Neck: Present: supple, normal ROM - Respiratory Respiratory effort: normal Respiratory: bilateral: diminished, wheezing - Cardiovascular Rhythm: regular Heart Sounds: Present: S1 & S2 - Abdominal General gastrointestinal: Present: soft, non-tender - Rectal Rectal Exam: deferred - Integumentary Integumentary: Present: clear (Right neck swelling ), warm, dry ( K I will will ahead) - Musculoskeletal Musculoskeletal: strength equal bilaterally - Psychiatric Psychiatric: appropriate mood/affect - Neurologic Neurologic: moves all extremities - Constitutional Vitals: Temp Pulse Resp BP Pulse Ox 98.3 F 69 18 132/65 99 01/31/17 09:30 01/31/17 12:30 01/31/17 09:30 01/31/17 12:30 01/31/17 07:27 Plan Activity: other (no strenous activity ) Diet: low salt, diabetic, renal Special Instructions: record daily BP diary, record blood sugar diary Additional Instructions: Please see your primary doctor to check you thyroid. Follow up with: PRIMARY CARE, [Primary Care Provider] - 3-5 Days DM ZEPEDA MD [Staff Physician] - 7 Days NATHALIE BETH MD [Staff Physician] - 7 Days Prescriptions: Insulin Detemir [Levemir] 15 units SUB-Q QHS #30 day ALBUTEROL NEB's [Proventil 0.083% NEBS] 2.5 mg IH Q4HRT PRN #30 day PRN Reason: Shortness Of Breath methylPREDNISolone [Medrol Dose Solomon] 1 dose PO DAILY #1 pack Nitroglycerin [Nitrostat] 0.4 mg SL .Q5MIN PRN #30 tablet PRN Reason: Chest Pain
[2017-01-31 14:19] VITALS: BP 122/43
--- NOTE | 2017-01-31 14:57 | Progress Note ---
Assessment and Plan Impression * End-stage renal disease on maintenance hemodialysis * Volume overload * Chest pain * Anemia secondary to ESRD * Chronic atrial fibrillation * Hypertension * Type II diabetes Recommendations * Continue HD - resume outpatient schedule upon discharge * UF as tolerated * Renal diet * Strict I/O * Monitor H&H and transfuse as needed * No IV, BP or venipuncture access arm \\ Subjective Date of service: 01/31/17 Principal diagnosis: esrd Interval history: Patient is s/p HD today. Objective - Vital Signs Vital signs: Vital Signs - 12hr 01/31/17 01/31/17 01/31/17 05:51 07:27 09:20 Temperature 98.8 F 98.5 F Pulse Rate 70 70 Pulse Rate [ 70 Apical] Respiratory 18 20 20 Rate Blood Pressure 102/48 120/60 O2 Sat by Pulse 99 99 Oximetry 01/31/17 01/31/17 01/31/17 09:30 10:00 10:15 Temperature 98.3 F Pulse Rate 69 69 69 Pulse Rate [ Apical] Respiratory 18 Rate Blood Pressure 115/57 123/64 126/70 O2 Sat by Pulse Oximetry 01/31/17 01/31/17 01/31/17 10:30 10:45 11:00 Temperature Pulse Rate 69 69 69 Pulse Rate [ Apical] Respiratory Rate Blood Pressure 130/64 131/66 134/65 O2 Sat by Pulse Oximetry 01/31/17 01/31/17 01/31/17 11:15 11:30 11:45 Temperature Pulse Rate 69 75 69 Pulse Rate [ Apical] Respiratory Rate Blood Pressure 142/60 119/69 130/66 O2 Sat by Pulse Oximetry 01/31/17 01/31/17 01/31/17 12:00 12:15 12:30 Temperature Pulse Rate 69 70 69 Pulse Rate [ Apical] Respiratory Rate Blood Pressure 132/60 140/64 132/65 O2 Sat by Pulse Oximetry 01/31/17 01/31/17 01/31/17 12:45 13:00 13:15 Temperature Pulse Rate 69 69 69 Pulse Rate [ Apical] Respiratory Rate Blood Pressure 128/65 130/62 127/57 O2 Sat by Pulse Oximetry 01/31/17 14:15 Temperature 98.9 F Pulse Rate 70 Pulse Rate [ Apical] Respiratory 20 Rate Blood Pressure 122/43 O2 Sat by Pulse 97 Oximetry - General Appearance General appearance: well-developed, well-nourished EENT: ATNC Respiratory: Present: Decreased Breath Sounds Cardiology: regular, S1S2 Gastrointestinal: normal, no tenderness, no distended Integumentary: no rash Musculoskeletal: other (+ edema) Psychiatric: cooperative - Lab 01/30/17 05:20 01/30/17 05:20 Most recent lab results Calcium 7.8 mg/dL (8.4-10.2) L 01/30/17 05:20
== END 2017-01-31 17:30 | disposition home or self-care (01) | DRG 252 ==
LOC: ED 18:52 → 2B-ACE 01-29 04:50
PROVIDERS: ADMIT Internal Medicine; ATTEND Internal Medicine
PROC: 5A1D70Z Performance of Urinary Filtration, Intermittent, Less than 6 Hours Per Day (ICD-10-PCS; 2017-01-29)
PROC: 03723ZZ Dilation of Innominate Artery, Percutaneous Approach (ICD-10-PCS; principal; 2017-01-30)
PROC: 05793ZZ Dilation of Right Brachial Vein, Percutaneous Approach (ICD-10-PCS; 2017-01-30)
PROC: B50W1ZZ Plain Radiography of Dialysis Shunt/Fistula using Low Osmolar Contrast (ICD-10-PCS; 2017-01-30)
PROC: 5A1D70Z Performance of Urinary Filtration, Intermittent, Less than 6 Hours Per Day (ICD-10-PCS; 2017-01-31)
DX: I13.2 Hypertensive heart and chronic kidney disease with heart failure and with stage 5 chronic kidney disease, or end stage renal disease (principal); N18.6 End stage renal disease; I50.33 Acute on chronic diastolic (congestive) heart failure; J44.1 Chronic obstructive pulmonary disease with (acute) exacerbation; J96.11 Chronic respiratory failure with hypoxia; I48.2 Chronic atrial fibrillation; K21.9 Gastro-esophageal reflux disease without esophagitis; M19.90 Unspecified osteoarthritis, unspecified site; I27.20 Pulmonary hypertension, unspecified; I95.9 Hypotension, unspecified; E11.65 Type 2 diabetes mellitus with hyperglycemia; D63.1 Anemia in chronic kidney disease; I25.10 Atherosclerotic heart disease of native coronary artery without angina pectoris; E11.22 Type 2 diabetes mellitus with diabetic chronic kidney disease; B18.2 Chronic viral hepatitis C; I36.1 Nonrheumatic tricuspid (valve) insufficiency; Z83.3 Family history of diabetes mellitus; Z99.81 Dependence on supplemental oxygen; Z95.810 Presence of automatic (implantable) cardiac defibrillator; Z99.2 Dependence on renal dialysis; Z86.73 Personal history of transient ischemic attack (TIA), and cerebral infarction without residual deficits; Z82.49 Family history of ischemic heart disease and other diseases of the circulatory system
CPT/HCPCS: 36415; 36902; 70490; 71010; 71250; 80048; 80061; 82962; 84484; 85025; 85610; 85730; 93005; 93010; 94640; 96374; 96375; 96376; C1725; C1751; C1769; C1894; J0456; J0690; J1644; J1815; J1818; J2250; J2270; J2405; J2765; J2920; J2930; J3010; J7030; J7050; Q9967

== ENCOUNTER 2017-05-06 09:22 | Inpatient (IN) | payer MEDICARE ==
[2017-05-06] MEDS ORDERED: ASPIRIN PO ONE ×2 (10:06→10:26)
[2017-05-06] MEDS ORDERED: ZOFRAN ONE (10:36)
--- NOTE | 2017-05-06 10:37 | Emergency Department Report ---
ED General Adult HPI - General Chief complaint: Chest Pain Stated complaint: CHEST PAIN Time Seen by Provider: 05/06/17 10:12 Source: family Mode of arrival: Stretcher Limitations: Language Barrier - History of Present Illness Initial comments: 67-year-old female missed dialysis today end-stage renal disease, history of A. fib with history of ventricular pacer here stating retrosternal chest pain for 24 hours intermittent , w.shortness of breath and intermittent cough. Cough has been for 20 days. Patient speaks no [place] history is from a language interpreter speaks little [place] African. Pain does not radiate. Family states the last time she had this that told her was "? Her heart." family are poor hx and pt speaks on swedish -: Gradual, days(s), During the night Location: chest Radiation: non-radiation Severity scale (0 -10): 8 Quality: burning, aching Associated Symptoms: chest pain, shortness of breath, weakness. denies: cough, fever/chills, malaise, nausea/vomiting - Related Data Home Medications Medication Instructions Recorded Confirmed Last Taken Allopurinol [Zyloprim] 100 mg PO QDAY 09/24/15 01/28/17 2 Days Ago ~12/19/16 1 Midodrine [Proamatine] 2.5 mg PO TID 09/24/15 01/28/17 2 Days Ago ~12/19/16 Furosemide [Lasix TAB] 80 mg PO QDAY 06/04/16 01/28/17 2 Days Ago ~12/19/16 B Complex 11/Folic/C/Biot/Zinc 1 tab PO QDAY 08/09/16 01/28/17 2 Days Ago [Dialyvite with Zinc Tablet] ~12/19/16 Macitentan [Opsumit] 10 mg PO QDAY 08/09/16 01/28/17 2 Days Ago ~12/19/16 Bikoa-I-Pjcvkiovtmahj [Beano] 1 each PO PRN 09/06/16 01/28/17 2 Days Ago ~12/19/16 Benzonatate [Tessalon Perles] 100 mg PO Q8HR 09/06/16 01/28/17 2 Days Ago ~12/19/16 Calcium Phosphate Trib/Vit D3 1 each PO DAILY 09/06/16 01/28/17 2 Days Ago [Calcium + Vitamin D3 Gummies] ~12/19/16 Loperamide [Imodium] 2 mg PO DAILY PRN 09/06/16 01/28/17 1 Month Ago ~11/21/16 Megestrol [Megace] 20 mg PO BID 09/06/16 01/28/17 2 Days Ago ~12/19/16 Ondansetron [Zofran TAB] 4 mg PO Q8HR PRN 09/06/16 01/28/17 2 Days Ago ~12/19/16 Sertraline [Zoloft] 50 mg PO QDAY 09/06/16 01/28/17 2 Days Ago ~12/19/16 Aspirin [Aspirin BABY CHEW TAB] 81 mg PO Q48HR 01/28/17 01/28/17 Unknown Previous Rx's Medication Instructions Recorded Last Taken Type Pantoprazole [Protonix TAB] 40 mg PO BID #60 tablet 08/13/16 2 Days Ago Rx ~12/19/16 ALBUTEROL NEB's [Proventil 0.083% 2.5 mg IH Q4HRT PRN #30 day 01/31/17 Unknown Rx NEBS] Aspirin [Aspirin BABY CHEW TAB] 81 mg PO QDAY #30 tab.chew 01/31/17 Unknown Rx Detemir (Nf) [Levemir (Nf)] 15 units SUB-Q QHS #30 day 01/31/17 Unknown Rx Gabapentin [Neurontin] 200 mg PO TID #30 day 01/31/17 1 Day Ago Rx ~12/20/16 Nitroglycerin [Nitrostat] 0.4 mg SL .Q5MIN PRN #30 tablet 01/31/17 Unknown Rx methylPREDNISolone [Medrol Dose 1 dose PO DAILY #1 pack 01/31/17 Unknown Rx Solomon] Allergies Allergy/AdvReac Type Severity Reaction Status Date / Time No Known Allergies Allergy Verified 09/06/16 12:20 ED Review of Systems ROS: Stated complaint: CHEST PAIN Other details as noted in HPI Comment: All other systems reviewed and negative Constitutional: denies: diaphoresis, fever, malaise, weakness ENT: denies: dental pain, hearing loss, epistaxis Respiratory: shortness of breath. denies: stridor Cardiovascular: chest pain, palpitations, edema. denies: syncope Gastrointestinal: denies: diarrhea, constipation, hematemesis, melena, hematochezia Neurological: denies: numbness, paresthesias, confusion ED Past Medical Hx - Past Medical History Hx Hypertension: Yes Hx CVA: Yes (4 cva's) Hx Heart Attack/AMI: No Hx Congestive Heart Failure: Yes Hx Diabetes: Yes Hx Deep Vein Thrombosis: No Hx Pulmonary Embolism: No Hx GERD: Yes Hx Liver Disease: No Hx Renal Disease: Yes (dialysis on Friday, , Friday) Hx Sickle Cell Disease: No Hx Arthritis: Yes Hx Seizures: No Hx Kidney Stones: No Hx Asthma: Yes Hx COPD: Yes Hx Tuberculosis: No Hx Dementia: No Hx HIV: No Additional medical history: atrial fibrillation; Anemia - Surgical History Hx Coronary Stent: No Hx Open Heart Surgery: No Hx Pacemaker: Yes (left chest) Hx Internal Defibrillator: Yes Hx Cholecystectomy: No Hx Appendectomy: No Hx Breast Surgery: No Additional Surgical History: fistula right arm - Social History Smoking Status: Never Smoker - Medications Home Medications: Home Medications Medication Instructions Recorded Confirmed Last Taken Type Allopurinol [Zyloprim] 100 mg PO QDAY 09/24/15 01/28/17 2 Days Ago History ~12/19/16 1 Midodrine [Proamatine] 2.5 mg PO TID 09/24/15 01/28/17 2 Days Ago History ~12/19/16 Furosemide [Lasix TAB] 80 mg PO QDAY 06/04/16 01/28/17 2 Days Ago History ~12/19/16 B Complex 11/Folic/C/Biot/Zinc 1 tab PO QDAY 08/09/16 01/28/17 2 Days Ago History [Dialyvite with Zinc Tablet] ~12/19/16 Macitentan [Opsumit] 10 mg PO QDAY 08/09/16 01/28/17 2 Days Ago History ~12/19/16 Pantoprazole [Protonix TAB] 40 mg PO BID #60 tablet 08/13/16 01/28/17 2 Days Ago Rx ~12/19/16 Qaszu-C-Aoibkflrbkbob [Beano] 1 each PO PRN 09/06/16 01/28/17 2 Days Ago History ~12/19/16 Benzonatate [Tessalon Perles] 100 mg PO Q8HR 09/06/16 01/28/17 2 Days Ago History ~12/19/16 Calcium Phosphate Trib/Vit D3 1 each PO DAILY 09/06/16 01/28/17 2 Days Ago History [Calcium + Vitamin D3 Gummies] ~12/19/16 Loperamide [Imodium] 2 mg PO DAILY PRN 09/06/16 01/28/17 1 Month Ago History ~11/21/16 Megestrol [Megace] 20 mg PO BID 09/06/16 01/28/17 2 Days Ago History ~12/19/16 Ondansetron [Zofran TAB] 4 mg PO Q8HR PRN 09/06/16 01/28/17 2 Days Ago History ~12/19/16 Sertraline [Zoloft] 50 mg PO QDAY 09/06/16 01/28/17 2 Days Ago History ~12/19/16 Aspirin [Aspirin BABY CHEW TAB] 81 mg PO Q48HR 01/28/17 01/28/17 Unknown History ALBUTEROL NEB's [Proventil 0.083% 2.5 mg IH Q4HRT PRN #30 day 01/31/17 Unknown Rx NEBS] Aspirin [Aspirin BABY CHEW TAB] 81 mg PO QDAY #30 tab.chew 01/31/17 Unknown Rx Detemir (Nf) [Levemir (Nf)] 15 units SUB-Q QHS #30 day 01/31/17 Unknown Rx Gabapentin [Neurontin] 200 mg PO TID #30 day 01/31/17 01/28/17 1 Day Ago Rx ~12/20/16 Nitroglycerin [Nitrostat] 0.4 mg SL .Q5MIN PRN #30 tablet 01/31/17 Unknown Rx methylPREDNISolone [Medrol Dose 1 dose PO DAILY #1 pack 01/31/17 Unknown Rx Solomon] ED Physical Exam - General Limitations: Language Barrier General appearance: alert, anxious - Head Head exam: Present: atraumatic, normocephalic - Eye Eye exam: Present: PERRL, EOMI - Neck Neck exam: Present: normal inspection. Absent: tenderness, meningismus - Respiratory Respiratory exam: Present: rales, rhonchi. Absent: stridor - Cardiovascular Cardiovascular Exam: Present: regular rate, other (pulses equal bilaterally) - GI/Abdominal GI/Abdominal exam: Present: soft. Absent: tenderness, guarding, rebound, rigid , mass, bruit, pulsatile mass - Extremities Exam Extremities exam: Present: normal capillary refill. Absent: joint swelling, calf tenderness - Back Exam Back exam: Present: normal inspection. Absent: CVA tenderness (L), muscle spasm , paraspinal tenderness, vertebral tenderness - Neurological Exam Neurological exam: Present: alert, oriented X3, CN II-XII intact. Absent: motor sensory deficit - Skin Skin exam: Absent: cyanosis, diaphoretic, erythema, urticaria, vesicles, petechiae ED Course Vital Signs 05/06/17 05/06/17 05/06/17 09:45 10:00 10:03 Temperature 98.4 F Pulse Rate 70 70 Respiratory 22 22 Rate Blood Pressure 122/48 111/48 122/48 O2 Sat by Pulse 97 97 97 Oximetry 05/06/17 05/06/17 05/06/17 10:13 10:14 10:16 Temperature Pulse Rate 70 89 Respiratory 22 19 Rate Blood Pressure 111/48 O2 Sat by Pulse 96 Oximetry 05/06/17 05/06/17 05/06/17 10:30 10:46 11:00 Temperature Pulse Rate 84 70 70 Respiratory 21 26 H 17 Rate Blood Pressure 107/49 107/49 131/61 O2 Sat by Pulse 96 96 97 Oximetry 05/06/17 05/06/17 05/06/17 11:12 11:17 11:22 Temperature Pulse Rate 70 70 70 Respiratory Rate Blood Pressure 136/57 117/54 108/47 O2 Sat by Pulse Oximetry ED Medical Decision Making - Lab Data Result diagrams: 05/06/17 10:13 05/06/17 10:13 - EKG Data -: EKG Interpreted by Ut EKG shows normal: sinus rhythm - EKG Data When compared to previous EKG there are: no significant change Interpretation: other (no change from previous ventricular pacer) - Radiology Data Radiology results: report reviewed Similar previous x-ray per the radiologist with no widened mediastinum with congestion - Medical Decision Making Case was discussed with the patient's on-call superannuation clerk it was the mid-level who was covering for Dr. Gallegos patient does get dialysis at [facility]. They will set up dialysis. Case was discussed Dr. Guillen for admitted for further evaluation of chest pain. Patient with tightness in the chest off and on for 24 hours troponin is mildly elevated 0.04 with elevated d-dimer as well we will get a VQ scan. Further evaluation chest pain rule out ACS. Patient does not seem to be having anything that would suggest a dissection or aortic catastrophe at this time. Pulses are equal no widened mediastinum on chest x- ray. Given the esrd she is not candidate for CTA at this time and he ordered v/ q for evaluation of elevated d-dimer shortness of breath and chest pain. Dr. Mota will evaluate the patient and ED for admit Critical Care Time: Yes Critical care time in (mins) excluding proc time.: 45 Critical care attestation.: If time is entered above; I have spent that time in minutes in the direct care of this critically ill patient, excluding procedure time. ED Disposition Clinical Impression: Chest pain, CHF (congestive heart failure), ESRD (end stage renal disease) on dialysis, Chest heaviness Disposition: OP ADMIT IP TO THIS HOSP Is pt being admited?: Yes Condition: Stable Instructions: Chest Pain (ED) Referrals: PRIMARY CARE, [Primary Care Provider] - 3-5 Days Time of Disposition: 12:11
[2017-05-06 10:40] LABS: Basophils # (Auto) 0.1 K/mm3 (0.0-0.1); Basophils % (Auto) 0.9 % (0.0-1.8); Eosinophils # (Auto) 0.5 K/mm3 (0.0-0.4); Eosinophils % (Auto) 6.4 % (0.0-4.3); Hematocrit 38.2 % (30.3-42.9); Lymphocytes # (Auto) 0.6 K/mm3 (1.2-5.4); Lymphocytes % (Auto) 8.5 % (13.4-35.0); Mean Corpuscular HGB Conc 31 % (30-34); Mean Corpuscular Hemoglobin 29 pg (28-32); Mean Corpuscular Volume 92 fl (79-97); Monocytes # (Auto) 0.5 K/mm3 (0.0-0.8); Monocytes % (Auto) 6.7 % (0.0-7.3); Platelet Count 179 K/mm3 (140-440); Red Blood Count 4.17 M/mm3 (3.65-5.03)
[2017-05-06 10:49] LABS: Calcium 8.1 mg/dL (8.4-10.2)
[2017-05-06 10:52] LABS: Red Cell Distribution Width 21.8 % (13.2-15.2)
--- NOTE | 2017-05-06 10:54 | XRay Report ---
AP CHEST: HISTORY: chest pain, difficulty breathing There is moderate cardiomegaly and mild pulmonary venous congestion which appear stable since 01/28/17. 2-lead pacemaker device is unchanged in position. The lungs are clear. No evidence for pneumonia, CHF or pneumothorax. IMPRESSION: Cardiomegaly and pulmonary venous congestion unchanged since 01/28/17.
[2017-05-06] MEDS ORDERED: ZOFRAN IV ONE (11:08)
[2017-05-06] MEDS: NITROSTAT SL PRN ×3 (11:12→11:22)
[2017-05-06 11:27] LABS: Chol/HDL Ratio 1.95 %
[2017-05-06] MEDS ORDERED: MORPHINE IV ONE ×2 (11:33→11:59)
[2017-05-06] MEDS ORDERED: MORPHINE ONE (12:15)
--- NOTE | 2017-05-06 13:55 | Nuclear Medicine Report ---
LUNG SCAN, VENTILATION AND PERFUSION: History: Chest pain, shortness of breath. Technique: 5mci of Tc99m MAA was infused for the perfusion images. 15mci XE 133 gas was inhaled for the ventilatory images. Correlation is made with a chest x-ray dated 05/06/17. Findings: Inhalation of Xenon gas demonstrates a normal distribution of the activity throughout both lungs. The wash out phases show no focal retention of activity. After injection of Technetium 99m macroaggregated albumin gamma camera imaging of the lungs in multiple projections demonstrates normal pulmonary contours with a homogeneous distribution of activity. No focal areas of perfusion deficiency are identified. IMPRESSION: Low probability for pulmonary embolus.
[2017-05-06] MEDS ORDERED: KIONEX PO ONE (21:44)
[2017-05-06] MEDS: PERCOCET 5/325 PO PRN (21:53)
--- NOTE | 2017-05-06 21:54 | Consultation ---
History of Present Illness - History of Present Illness thank you for the consultation Patient was evaluated today in the ER, around 3:30 in the afternoon after I was called from the dialysis clinic the patient was transferred for chest pain and may require renal replacement therapy today When I came to see the patient she was in the ER along with her and was in the process of getting lab draw She is well-developed to me from dialysis clinic and is in need for renal replacement therapy this admission Discussed with who is here with the patient she is being admitted here with chest pain patient does understand Syriac well Assessment and plan: Chest pain: Workup is currently in progress no emergent indication for renal replacement therapy Hyperkalemia to follow , if remains high and patient is stable may consider renal replacement tonight Metabolic acidosis will treat with sodium bicarbonate End-stage renal disease : Patient is currently on maintenance hemodialysis admitted with chest pain there is no acute emergent indication for renal replacement therapy for now Anemia and end-stage renal disease: To monitor and follow Secondary hyperparathyroidism check phosphorus and PTH level Volume status overall patient is doing much better her edema is nearly in remission finally after all these years she has started doing better encouraged If k is still high will need dialysis tonight We'll continue to follow and make recommendation for renal standpoint Medications and Allergies Allergies Allergy/AdvReac Type Severity Reaction Status Date / Time No Known Allergies Allergy Verified 09/06/16 12:20 Home Medications Medication Instructions Recorded Confirmed Last Taken Type Allopurinol [Zyloprim] 100 mg PO QDAY 09/24/15 05/06/17 05/05/17 History Midodrine [Proamatine] 2.5 mg PO TID 09/24/15 05/06/17 05/05/17 History Furosemide [Lasix TAB] 80 mg PO QDAY 06/04/16 05/06/17 05/05/17 History B Complex 11/Folic/C/Biot/Zinc 1 tab PO QDAY 08/09/16 05/06/17 05/05/17 History [Dialyvite with Zinc Tablet] Macitentan [Opsumit] 10 mg PO QDAY 08/09/16 05/06/17 05/05/17 History Faxmk-U-Lclxqtzctfjgx [Beano] 1 each PO PRN 09/06/16 05/06/17 05/05/17 History Benzonatate [Tessalon Perles] 100 mg PO Q8HR 09/06/16 05/06/17 05/05/17 History Loperamide [Imodium] 2 mg PO DAILY PRN 09/06/16 05/06/17 05/05/17 History Megestrol [Megace] 20 mg PO BID 09/06/16 05/06/17 05/05/17 History Ondansetron [Zofran TAB] 4 mg PO Q8HR PRN 09/06/16 05/06/17 05/05/17 History Sertraline [Zoloft] 50 mg PO QDAY 09/06/16 05/06/17 05/05/17 History ALBUTEROL NEB's [Proventil 0.083% 2.5 mg IH Q4HRT PRN #30 day 01/31/17 05/06/17 05/05/17 Rx NEBS] Nitroglycerin [Nitrostat] 0.4 mg SL .Q5MIN PRN #30 tablet 01/31/17 05/06/1702/10 Rx Cholecalciferol (Vitamin D3) 3,000 unit PO DAILY 05/06/17 05/06/17 05/05/17 History [Vitamin D3 3,000 unit] Insulin Aspart Prot/Aspart(Nf) 0 units SQ TID 05/06/17 05/06/17 05/05/17 History [Novolog Mix 70/30] Insulin Glargine,Hum.rec.anlog 15 units SQ QHS 05/06/17 05/06/17 05/05/17 History [Lantus] Metolazone 10 mg PO QDAY 05/06/17 05/06/17 05/05/17 History Pantoprazole [Protonix TAB] 40 mg PO DAILY 05/06/17 05/06/17 05/05/17 History Active Meds: Active Medications Nitroglycerin (Nitrostat) 0.4 mg SL .Q5MIN PRN PRN Reason: Chest Pain Last Admin: 05/06/17 11:22 Dose: 0.4 mg Oxycodone/Acetaminophen (Percocet 5/325) 1 tab PO Q4H PRN PRN Reason: Pain, Moderate (4-6) Exam - Vital Signs Vital signs: Vital Signs BP Pulse Ox 122/48 97 05/06/17 09:45 05/06/17 09:45 Results - Lab Results 05/06/17 10:13 05/06/17 10:13 Most recent lab results Calcium 8.1 mg/dL (8.4-10.2) L 05/06/17 10:13
[2017-05-06] MEDS ORDERED: CALCIUM CHLORIDE IVP ONE (21:55)
[2017-05-06] MEDS ORDERED: SODIUM BICARBONATE IV ONE (21:56)
[2017-05-06] MEDS ORDERED: PROVENTIL IH PRN (23:18)
[2017-05-06] MEDS ORDERED: IMODIUM PO PRN (23:18)
--- NOTE | 2017-05-06 23:18 | History and Physical Report ---
History of Present Illness Date of examination: 05/06/17 Date of admission: 05/06/17 12:12 Medications and Allergies Allergies Allergy/AdvReac Type Severity Reaction Status Date / Time No Known Allergies Allergy Verified 09/06/16 12:20 Home Medications Medication Instructions Recorded Confirmed Last Taken Type Allopurinol [Zyloprim] 100 mg PO QDAY 09/24/15 05/06/17 05/05/17 History Midodrine [Proamatine] 2.5 mg PO TID 09/24/15 05/06/17 05/05/17 History Furosemide [Lasix TAB] 80 mg PO QDAY 06/04/16 05/06/17 05/05/17 History B Complex 11/Folic/C/Biot/Zinc 1 tab PO QDAY 08/09/16 05/06/17 05/05/17 History [Dialyvite with Zinc Tablet] Macitentan [Opsumit] 10 mg PO QDAY 08/09/16 05/06/17 05/05/17 History Aicdt-E-Whhpvyxmmtvbo [Beano] 1 each PO PRN 09/06/16 05/06/17 05/05/17 History Benzonatate [Tessalon Perles] 100 mg PO Q8HR 09/06/16 05/06/17 05/05/17 History Loperamide [Imodium] 2 mg PO DAILY PRN 09/06/16 05/06/17 05/05/17 History Megestrol [Megace] 20 mg PO BID 09/06/16 05/06/17 05/05/17 History Ondansetron [Zofran TAB] 4 mg PO Q8HR PRN 09/06/16 05/06/17 05/05/17 History Sertraline [Zoloft] 50 mg PO QDAY 09/06/16 05/06/17 05/05/17 History ALBUTEROL NEB's [Proventil 0.083% 2.5 mg IH Q4HRT PRN #30 day 01/31/17 05/06/17 05/05/17 Rx NEBS] Nitroglycerin [Nitrostat] 0.4 mg SL .Q5MIN PRN #30 tablet 01/31/17 05/06/1702/10 Rx Cholecalciferol (Vitamin D3) 3,000 unit PO DAILY 05/06/17 05/06/17 05/05/17 History [Vitamin D3 3,000 unit] Insulin Aspart Prot/Aspart(Nf) 0 units SQ TID 05/06/17 05/06/17 05/05/17 History [Novolog Mix 70/30] Insulin Glargine,Hum.rec.anlog 15 units SQ QHS 05/06/17 05/06/17 05/05/17 History [Lantus] Metolazone 10 mg PO QDAY 05/06/17 05/06/17 05/05/17 History Pantoprazole [Protonix TAB] 40 mg PO DAILY 05/06/17 05/06/17 05/05/17 History Active Meds: Active Medications Nitroglycerin (Nitrostat) 0.4 mg SL .Q5MIN PRN PRN Reason: Chest Pain Last Admin: 05/06/17 11:22 Dose: 0.4 mg Oxycodone/Acetaminophen (Percocet 5/325) 1 tab PO Q4H PRN PRN Reason: Pain, Moderate (4-6) Last Admin: 05/06/17 21:53 Dose: 1 tab Exam - Constitutional Vitals: Temp Pulse Resp BP Pulse Ox 98.2 F 70 18 146/60 99 05/06/17 16:25 05/06/17 16:25 05/06/17 16:25 05/06/17 16:25 05/06/17 16:25 Results - Labs CBC & Chem 7: 05/06/17 10:13 05/06/17 10:13 Labs: Laboratory Last Values WBC 7.2 K/mm3 (4.5-11.0) 05/06/17 10:13 RBC 4.17 M/mm3 (3.65-5.03) 05/06/17 10:13 Hgb 12.0 gm/dl (10.1-14.3) 05/06/17 10:13 Hct 38.2 % (30.3-42.9) 05/06/17 10:13 MCV 92 fl (79-97) 05/06/17 10:13 MCH 29 pg (28-32) 05/06/17 10:13 MCHC 31 % (30-34) 05/06/17 10:13 RDW 21.8 % (13.2-15.2) H 05/06/17 10:13 Plt Count 179 K/mm3 (140-440) 05/06/17 10:13 Lymph % (Auto) 8.5 % (13.4-35.0) L 05/06/17 10:13 [place] % (Auto) 6.7 % (0.0-7.3) 05/06/17 10:13 Eos % (Auto) 6.4 % (0.0-4.3) H 05/06/17 10:13 Baso % (Auto) 0.9 % (0.0-1.8) 05/06/17 10:13 Lymph # 0.6 K/mm3 (1.2-5.4) L 05/06/17 10:13 [place] # 0.5 K/mm3 (0.0-0.8) 05/06/17 10:13 Eos # 0.5 K/mm3 (0.0-0.4) H 05/06/17 10:13 Baso # 0.1 K/mm3 (0.0-0.1) 05/06/17 10:13 Seg Neutrophils % 77.5 % (40.0-70.0) H 05/06/17 10:13 Seg Neutrophils # 5.5 K/mm3 (1.8-7.7) 05/06/17 10:13 D-Dimer 413.78 ng/mlDDU (0-234) H 05/06/17 10:13 Sodium 126 mmol/L (137-145) L 05/06/17 10:13 Potassium 5.8 mmol/L (3.6-5.0) H 05/06/17 10:13 Chloride 85.0 mmol/L (98-107) L 05/06/17 10:13 Carbon Dioxide 16 mmol/L (22-30) L 05/06/17 10:13 Anion Gap 31 mmol/L 05/06/17 10:13 BUN 75 mg/dL (7-17) H 05/06/17 10:13 Creatinine 8.8 mg/dL (0.7-1.2) H 05/06/17 10:13 Estimated GFR 5 ml/min 05/06/17 10:13 BUN/Creatinine Ratio 9 % 05/06/17 10:13 Glucose 253 mg/dL (65-100) H 05/06/17 10:13 POC Glucose 223 (70-105) H 05/06/17 21:40 Calcium 8.1 mg/dL (8.4-10.2) L 05/06/17 10:13 Troponin T 0.057 ng/mL (0.00-0.029) H D 05/06/17 16:31 NT-Pro-B Natriuret Pep 6359 pg/mL (0-900) H 05/06/17 10:13 Triglycerides 62 mg/dL (2-149) 05/06/17 10:13 Cholesterol 125 mg/dL (50-199) 05/06/17 10:13 LDL Cholesterol Direct 53 mg/dL (50-130) 05/06/17 10:13 HDL Cholesterol 64 mg/dL (40-59) H 05/06/17 10:13 Cholesterol/HDL Ratio 1.95 % 05/06/17 10:13 Lipase 90 units/L (13-60) H 05/06/17 10:13
--- NOTE | 2017-05-06 23:18 | Event Note ---
Date: 05/06/17 See dictated H/p in reports CHest pain r/o [place] protocol Volume overload ESRD HTN IDDM Hyperkalemia
[2017-05-06 23:47] LABS: Calcium 9.2 mg/dL (8.4-10.2)
[2017-05-07] MEDS ORDERED: D50W (25GM) Syringe IV ONE (00:22)
[2017-05-07] MEDS ORDERED: HumuLIN R SUB-Q ONE (00:23)
[2017-05-07] MEDS ORDERED: SODIUM BICARBONATE IV ONE (00:27)
[2017-05-07] MEDS ORDERED: CALCIUM CHLORIDE IVP ONE (00:28)
[2017-05-07] MEDS ORDERED: KIONEX PO ONE (00:30)
[2017-05-07] MEDS: HumuLIN R SUB-Q SCH ×4 (07:30→22:44)
--- NOTE | 2017-05-07 07:52 | History and Physical Report ---
CHIEF COMPLAINT: 1. Chest pain. 2. Shortness of breath for the last one day. HISTORY OF PRESENT ILLNESS: A 67-year-old [place] female with history of end-stage renal disease, atrial fibrillation, hypertension, gout and pacemaker, comes in for retrosternal chest pain. Cough for about one month. Chest pain is intermittent. Also, short of breath. The patient missed dialysis, 1 session. Chest pain is left-sided and intermittent in nature. No diaphoresis. No palpitations. No syncope, no seizures. No fever, no chills. PAST MEDICAL HISTORY: Significant for hypertension, cerebrovascular accidents x 4, congestive heart failure, diabetes, gastroesophageal reflux disease, end-stage renal disease. Also, atrial fibrillation and anemia. PAST SURGICAL HISTORY: Has a pacemaker, internal defibrillator, and a fistula on the right arm. CURRENT MEDICATIONS: On the chart. FAMILY HISTORY: Significant for hypertension. SOCIAL HISTORY: Does not smoke. No alcohol, no recreational drugs. REVIEW OF SYSTEMS: Significant for left-sided chest pain and increasing shortness of breath. Otherwise, review of systems negative. A 14-point review of systems done. PHYSICAL EXAMINATION: GENERAL: Elderly female lying in bed, at the site of her bad, no apparent distress. VITAL SIGNS: Blood pressure is 122/48, temperature is 98, pulse is 70, respirations 16-22, sats are 97%. HEENT: Unremarkable. Pupils equal and reactive. NECK: Supple, no lymphadenopathy, no thyromegaly. LUNGS: Clear to auscultation and percussion. Good air entry. CARDIOVASCULAR: S1, S2 heard. No gallop, no murmur, no rub. Apical impulse in left fifth intercostal space at midclavicular line. ABDOMEN:. Soft and benign. No hepatosplenomegaly. No guarding, no rigidity. Hernial orifices are normal. EXTREMITIES: Good pedal pulses. CENTRAL NERVOUS SYSTEM: Alert and oriented x 4. Language barrier present. LABORATORY DATA: Significant for sodium of , potassium 5.8, BUN and creatinine of 75 and 8.8, glucose is 253. EKG, paced rhythm about 80 per minute. Chest x-ray shows volume overload. ASSESSMENT AND PLAN: 1. Chest pain, rule out myocardial infarction, chest pain protocol. 2. Congestive heart failure. The patient to be taken for hemodialysis for ultrafiltration and removal of fluid. 3. End-stage renal disease, on hemodialysis. Continue hemodialysis. 4. Insulin-dependent diabetes. Continue home insulin and coverage. 5. Gout, inactive at this point. Continue allopurinol. 6. Depression. Continue Zoloft 50 mg once a day. 7. Peripheral neuropathy. Continue gabapentin 200 mg 3 times a day. 8. Deep venous thrombosis prophylaxis, heparin 5000 q.12h. [facility]# [id number] VSM/NTS
--- NOTE | 2017-05-07 09:26 | Progress Note ---
Subjective Interval history: Patient was seen today for follow-up on multiple renal related issues Events of this hospitalization noted, she does complain of mild shortness of breath Admitted with chest pain was hyperkalemic and is currently not responding to medical treatment She is status post cardiology evaluation Vitals labs intake output medications were reviewed Social history: Reviewed Allergies: Reviewed Family history: Reviewed Physical examination HEENT: Oral mucosa moist no pallor or icterus Neck: Supple no JVD Chest: Clear to auscultation anteriorly CVS: Regular rate and rhythm S1 and S2 heard Abdomen: Soft nontender no suprapubic masses no organomegaly appreciable Extremity: Dry skin less than 1+ peripheral edema Musculoskeletal: No joint effusion noted in knees and ankle Neurological: Alert awake Dermatology: No petechial rashes Psychiatry: No evidence of any agitation and aggression noted Assessment and plan End-stage renal disease: Patient admitted with chest pain normally on dialysis Friday. Patient will need hemodialysis treatment today Hyperkalemia: Will send her for hemodialysis, stat Chest pain: Patient is currently status post cardiology evaluation Anemia and end-stage renal disease: To monitor and follow Metabolic acidosis treated with sodium bicarbonate to follow hemodialysis today Chronic volume overload issues currently much better compliance is improving with the use of language line at the dialysis facility patient is able to communicate much better Hyponatremia: Multifactorial at this point Patient was adequately counseled and educated regarding multiple renal related issues Pertinent lab findings were discussed with patient, patient does exhibit good understanding of renal issues We'll continue to follow and make recommendation from renal standpoint Objective - Vital Signs Vital signs: Vital Signs - 12hr 05/06/17 05/06/17 05/07/17 22:54 23:46 04:16 Temperature 98.3 F 97.5 F L Pulse Rate 70 70 70 Respiratory 18 20 Rate Blood Pressure 148/57 117/53 Blood Pressure [Right] O2 Sat by Pulse 98 99 Oximetry 05/07/17 07:50 Temperature 98.6 F Pulse Rate 70 Respiratory 17 Rate Blood Pressure Blood Pressure 143/60 [Right] O2 Sat by Pulse 100 Oximetry - Lab 05/06/17 10:13 05/07/17 03:38 Most recent lab results Calcium 9.2 mg/dL (8.4-10.2) 05/06/17 22:53
[2017-05-07] MEDS: PROTONIX PO SCH (09:50)
[2017-05-07] MEDS: MEGACE PO SCH ×2 (09:50→22:43)
[2017-05-07] MEDS: ZYLOPRIM PO SCH (09:51)
[2017-05-07] MEDS: ZOLOFT PO SCH (09:52)
[2017-05-07] MEDS: PROAMATINE PO SCH ×3 (09:55→20:45)
[2017-05-07] MEDS: ZAROXOLYN PO SCH (10:00)
[2017-05-07] MEDS: HEPARIN SUB-Q SCH ×2 (10:00→22:48)
[2017-05-07] MEDS: LASIX PO SCH (10:00)
[2017-05-07] MEDS ORDERED: MACITENTAN 10 MG PO SCH (10:00)
[2017-05-07] MEDS ORDERED: NACL 0.9% 100 ML IV PRN (11:00)
[2017-05-07] MEDS ORDERED: LEXISCAN IV ONE ×2 (11:52→11:54)
[2017-05-07] MEDS ORDERED: NACL 0.9 (PRIMING MACHINE ONLY DIALYSIS) MC ONE (13:01)
--- NOTE | 2017-05-07 13:59 | Consultation ---
History of Present Illness Consult date: 05/07/17 Consult reason: chest pain, congestive heart failure, known to you History of present illness: This is a 67yr old woman with multiple medical problems. She has chronic Atrial fibrillation, ESRD on dialysis, Hepatitis C, Pulmonary HTN, CVA, COPD on home oxygen, chronic Hypotension and diastolic heart failure. Patient was previously considered not a candidate for oral anticoagulation due to severe anemia and prior GI bleed. Patient also a permanent pacemaker. The patient has had extensive cardiac workup in the past. In 2011 she had a left heart cath that showed non-obstructive coronary artery disease. More recently, 8 months ago, she had a normal myocardial perfusion thallium stress test and a reported preserved ejection fraction, 55% on echocardiogram. She presented to the emergency department with complaints of chest pain and shortness of breath. Chest pain is worse with palpation and deep breathing. Ventilation scan reports a low probability for PE. Labs most notable for a sodium of 126. 12-lead ECG unchanged. Cardiology consultation was requested for further evaluation. Medications and Allergies Allergies Allergy/AdvReac Type Severity Reaction Status Date / Time No Known Allergies Allergy Verified 09/06/16 12:20 Home Medications Medication Instructions Recorded Confirmed Last Taken Type Allopurinol [Zyloprim] 100 mg PO QDAY 09/24/15 05/06/17 05/05/17 History Midodrine [Proamatine] 2.5 mg PO TID 09/24/15 05/06/17 05/05/17 History Furosemide [Lasix TAB] 80 mg PO QDAY 06/04/16 05/06/17 05/05/17 History B Complex 11/Folic/C/Biot/Zinc 1 tab PO QDAY 08/09/16 05/06/17 05/05/17 History [Dialyvite with Zinc Tablet] Macitentan [Opsumit] 10 mg PO QDAY 08/09/16 05/06/17 05/05/17 History Efutd-T-Sgdeegsekqohe [Beano] 1 each PO PRN 09/06/16 05/06/17 05/05/17 History Benzonatate [Tessalon Perles] 100 mg PO Q8HR 09/06/16 05/06/17 05/05/17 History Loperamide [Imodium] 2 mg PO DAILY PRN 09/06/16 05/06/17 05/05/17 History Megestrol [Megace] 20 mg PO BID 09/06/16 05/06/17 05/05/17 History Ondansetron [Zofran TAB] 4 mg PO Q8HR PRN 09/06/16 05/06/17 05/05/17 History Sertraline [Zoloft] 50 mg PO QDAY 09/06/16 05/06/17 05/05/17 History ALBUTEROL NEB's [Proventil 0.083% 2.5 mg IH Q4HRT PRN #30 day 01/31/17 05/06/17 05/05/17 Rx NEBS] Nitroglycerin [Nitrostat] 0.4 mg SL .Q5MIN PRN #30 tablet 01/31/17 05/06/1702/10 Rx Cholecalciferol (Vitamin D3) 3,000 unit PO DAILY 05/06/17 05/06/17 05/05/17 History [Vitamin D3 3,000 unit] Insulin Aspart Prot/Aspart(Nf) 0 units SQ TID 05/06/17 05/06/17 05/05/17 History [Novolog Mix 70/30] Insulin Glargine,Hum.rec.anlog 15 units SQ QHS 05/06/17 05/06/17 05/05/17 History [Lantus] Metolazone 10 mg PO QDAY 05/06/17 05/06/17 05/05/17 History Pantoprazole [Protonix TAB] 40 mg PO DAILY 05/06/17 05/06/17 05/05/17 History Active Meds: Active Medications Albuterol (Proventil) 2.5 mg IH Q4HRT PRN PRN Reason: Shortness Of Breath Allopurinol (Zyloprim) 100 mg PO QDAY ÁNGEL Last Admin: 05/07/17 09:51 Dose: 100 mg Furosemide (Lasix) 80 mg PO QDAY ÁNGEL Heparin Sodium (Porcine) (Heparin) 5,000 unit SUB-Q Q12HR ÁNGEL Sodium Chloride (Nacl 0.9%) 100 mls @ 999 mls/hr IV BUFFY PRN PRN Reason: Hypotension Insulin Glargine (Lantus) 15 units SUB-Q QHS [facility] Insulin Human Regular (Humulin R) 0 units SUB-Q ACHS ÁNGEL; Protocol Last Admin: 05/07/17 07:30 Dose: Not Given Loperamide HCl (Imodium) 2 mg PO DAILY PRN PRN Reason: Diarrhea Megestrol Acetate (Megace) 20 mg PO BID [facility] Last Admin: 05/07/17 09:50 Dose: 20 mg Metolazone (Zaroxolyn) 10 mg PO QDAY [facility] Midodrine (Proamatine) 2.5 mg PO TID [facility] Last Admin: 05/07/17 09:55 Dose: Not Given Miscellaneous Medication (Macitentan [Opsumit]) 10 mg PO QDAY [facility] Nitroglycerin (Nitrostat) 0.4 mg SL .Q5MIN PRN PRN Reason: Chest Pain Ondansetron HCl (Zofran) 4 mg PO Q8H PRN PRN Reason: Nausea Oxycodone/Acetaminophen (Percocet 5/325) 1 tab PO Q4H PRN PRN Reason: Pain, Moderate (4-6) Last Admin: 05/06/17 21:53 Dose: 1 tab Pantoprazole Sodium (Protonix) 40 mg PO DAILY [facility] Last Admin: 05/07/17 09:50 Dose: 40 mg Sertraline HCl (Zoloft) 50 mg PO QDAY [facility] Last Admin: 05/07/17 09:52 Dose: 50 mg Physical Examination Vital Signs BP Pulse Ox 122/48 97 05/06/17 09:45 05/06/17 09:45 General appearance: no acute distress HEENT: Positive: PERRL Cardiac: Positive: Other (paced) Results 05/06/17 10:13 05/07/17 03:38 Comprehensive Metabolic Panel 05/06/17 05/07/17 Range/Units 22:53 03:38 Sodium 129 L (137-145) mmol/L Potassium 6.7 H* 5.8 H (3.6-5.0) mmol/L Chloride 84.5 L (98-107) mmol/L Carbon Dioxide 21 L (22-30) mmol/L BUN 82 H (7-17) mg/dL Creatinine 9.1 H (0.7-1.2) mg/dL Glucose 232 H (65-100) mg/dL Calcium 9.2 (8.4-10.2) mg/dL Assessment and Plan Chest pain, musculoskeletal Hyponatremia Hypotension, chronic on midodrine as an outpatient Atherosclerotic heart disease of [place] coronary artery non-obstructive by [facility] 2011 normal myocardial perfusion on MPI 08/2016 EF 55-60% on echo 07/2016 Pulmonary hypertension on home oxygen therapy on opsimut Chronic atrial fibrillation previously considered not a candidate for oral anticoagulation due to anemia and prior GI bleed. ESRD, on HD Anemia Chronic viral hepatitis C Nonrheumatic tricuspid (valve) insufficiency Hx of cerebrovascular disease Pacemaker/cardiac insitu Recommendations: Dialysis for volume removal. No further cardiac workup indicated.
--- NOTE | 2017-05-07 15:42 | Progress Note ---
Assessment and Plan Assessment and plan: Patient is a 67 year-old. Me speaking woman with history of chronic hypoxic respiratory failure due to COPD on home oxygen, chronic Atrial fibrillation with a permanent pacemaker (not on anticoagulation due to prior serious GI bleed ), ESRD on dialysis, Hepatitis C, Pulmonary HTN, CVA, chronic Hypotension, non- obstructive CAD per 2012 [facility] and diastolic heart failure who presented with cp, sob. She did hemodialysis. 8 months ago, she had a normal myocardial perfusion thallium stress test and a reported preserved ejection fraction, 55% on echocardiogram 07/2016. Normal myocardial perfusion on MPI 08/2016 and v/q low prob for PE cxr chonic vascular congestion -Chest pain, musculoskeletal, costochronitis: treat symptomatically -Fluid overload from ESRD not CHF with severe hyperkalemia: requiring urgent hemodialysis -Hyponatremia: electrolyte/fluid adjustment with hemodialysis -Hypotension, chronic on midodrine as an outpatient -CAD: continue medical management, low salt diet -Pulmonary hypertension on home oxygen therapy: on Opsimut -Chronic atrial fibrillation: previously considered not a candidate for oral anticoagulation due to anemia and prior GI bleed. -ESRD, on HD: Neprhology is following -Anemia of chronic renal disease: monitor h/h closely -Chronic viral hepatitis C -Nonrheumatic tricuspid (valve) insufficiency -Hx of cerebrovascular disease -Pacemaker/cardiac insitu Plan: continue hemodialysis until volume overload improves No further cardiac workup indicated per Cardiology. History Interval history: was the [employer] Patient was seen and examined. Follow-up on current diagnosis of chest pain and shortness of breath which is improved. Overnight uneventful. Patient denies nausea/vomiting or severe headaches. Imaging, nursing note, chart, labs and old chart reviewed. Discussed with patient. Hospitalist Physical - Physical exam Narrative exam: GEN: WDWN, NAD, AWAKE, ALERT, ORIENTATED HEENT: NCAT, EOMI, PERRL, OP Clear NECK: supple, no adenopathy, no thyromegaly, no JVD CVS/HEART: Irregular regular NORMAL S1S2, pulses present bilaterally CHEST/LUNGS: Diminished breath sounds bilaterally Symmetrical chest expansion, good air entry bilaterally, reproducible chest wall tenderness, pacemaker in place GI/Abdomen: soft, NTND, good bowel sounds, no guarding or rebound /Bladder: no suprapubic tenderness, no CVA or paraspinal tenderness, flank edema EXT/Skin: Dependent edema MSK: FROM x 4 Neuro: CN 2-12 grossly intact, no new focal deficits Psych: calm - Constitutional Vitals: Temp Pulse Resp BP Pulse Ox 97.5 F L 69 18 152/64 100 05/07/17 14:25 05/07/17 14:25 05/07/17 14:25 05/07/17 14:25 05/07/17 07:50 General appearance: Present: no acute distress Results - Labs CBC & Chem 7: 05/06/17 10:13 05/07/17 03:38 Labs: Laboratory Last Values WBC 7.2 K/mm3 (4.5-11.0) 05/06/17 10:13 RBC 4.17 M/mm3 (3.65-5.03) 05/06/17 10:13 Hgb 12.0 gm/dl (10.1-14.3) 05/06/17 10:13 Hct 38.2 % (30.3-42.9) 05/06/17 10:13 MCV 92 fl (79-97) 05/06/17 10:13 MCH 29 pg (28-32) 05/06/17 10:13 MCHC 31 % (30-34) 05/06/17 10:13 RDW 21.8 % (13.2-15.2) H 05/06/17 10:13 Plt Count 179 K/mm3 (140-440) 05/06/17 10:13 Lymph % (Auto) 8.5 % (13.4-35.0) L 05/06/17 10:13 [place] % (Auto) 6.7 % (0.0-7.3) 05/06/17 10:13 Eos % (Auto) 6.4 % (0.0-4.3) H 05/06/17 10:13 Baso % (Auto) 0.9 % (0.0-1.8) 05/06/17 10:13 Lymph # 0.6 K/mm3 (1.2-5.4) L 05/06/17 10:13 [place] # 0.5 K/mm3 (0.0-0.8) 05/06/17 10:13 Eos # 0.5 K/mm3 (0.0-0.4) H 05/06/17 10:13 Baso # 0.1 K/mm3 (0.0-0.1) 05/06/17 10:13 Seg Neutrophils % 77.5 % (40.0-70.0) H 05/06/17 10:13 Seg Neutrophils # 5.5 K/mm3 (1.8-7.7) 05/06/17 10:13 D-Dimer 413.78 ng/mlDDU (0-234) H 05/06/17 10:13 Sodium 129 mmol/L (137-145) L 05/06/17 22:53 Potassium 5.8 mmol/L (3.6-5.0) H 05/07/17 03:38 Chloride 84.5 mmol/L (98-107) L 05/06/17 22:53 Carbon Dioxide 21 mmol/L (22-30) L 05/06/17 22:53 Anion Gap 30 mmol/L 05/06/17 22:53 BUN 82 mg/dL (7-17) H 05/06/17 22:53 Creatinine 9.1 mg/dL (0.7-1.2) H 05/06/17 22:53 Estimated GFR 4 ml/min 05/06/17 22:53 BUN/Creatinine Ratio 9 % 05/06/17 22:53 Glucose 232 mg/dL (65-100) H 05/06/17 22:53 POC Glucose 138 (70-105) H 05/07/17 06:38 Calcium 9.2 mg/dL (8.4-10.2) 05/06/17 22:53 Troponin T 0.057 ng/mL (0.00-0.029) H 05/06/17 22:53 NT-Pro-B Natriuret Pep 6359 pg/mL (0-900) H 05/06/17 10:13 Triglycerides 62 mg/dL (2-149) 05/06/17 10:13 Cholesterol 125 mg/dL (50-199) 05/06/17 10:13 LDL Cholesterol Direct 53 mg/dL (50-130) 05/06/17 10:13 HDL Cholesterol 64 mg/dL (40-59) H 05/06/17 10:13 Cholesterol/HDL Ratio 1.95 % 05/06/17 10:13 Lipase 90 units/L (13-60) H 05/06/17 10:13
[2017-05-07] MEDS: LANTUS SUB-Q SCH (22:47)
[2017-05-08] MEDS: PERCOCET 5/325 PO PRN ×4 (00:17→22:20)
[2017-05-08] MEDS: ZOFRAN PO PRN ×2 (00:24→07:23)
[2017-05-08 06:10] LABS: Mean Corpuscular HGB Conc 30 % (30-34); Mean Corpuscular Hemoglobin 28 pg (28-32); Mean Corpuscular Volume 93 fl (79-97); Platelet Count 160 K/mm3 (140-440); Red Blood Count 3.92 M/mm3 (3.65-5.03)
[2017-05-08 06:34] LABS: Calcium 7.1 mg/dL (8.4-10.2)
[2017-05-08 06:49] LABS: Hematocrit 36.6 % (30.3-42.9); Red Cell Distribution Width 21.6 % (13.2-15.2)
[2017-05-08] MEDS: HumuLIN R SUB-Q SCH ×3 (07:30→22:19)
--- NOTE | 2017-05-08 09:02 | Progress Note ---
Subjective Interval history: Patient was seen today for follow-up on multiple renal related issues she is feeling much better no complaints of any chest pain pressure shortness of breath status post cardiology evaluation Vitals labs intake output medications were reviewed Social history: Reviewed Allergies: Reviewed Family history: Reviewed Physical examination HEENT: Oral mucosa moist no pallor or icterus Neck: Supple no JVD Chest: Clear to auscultation anteriorly CVS: Regular rate and rhythm S1 and S2 heard Abdomen: Soft nontender no suprapubic masses no organomegaly appreciable Extremity: Dry skin less than 1+ peripheral edema Musculoskeletal: No joint effusion noted in knees and ankle Neurological: Alert awake Dermatology: No petechial rashes Psychiatry: No evidence of any agitation and aggression noted Assessment and plan End-stage renal disease: As she did receive hemodialysis treatment yesterday she will only need a short treatment today as the Meditech was down I gave verbal order to Meena dialysis nurse for hemodialysis 2 hours ,as Meditech was down orders were given to the nurse directly Patient normally dialyzes at [facility] and to the intensive Friday schedule Volume overload: Currently doing much better ever since we started using the language line at the clinic Admitted with chest pain currently doing much better Hyperkalemia will use a higher dialysis potassium bath today Chronic hypotension currently doing much better Pulmonary hypertension, ejection fraction 5560%, chronic atrial fibrillation Overall she is stable post dialysis can be discharged to follow up at the dialysis clinic Care plan was discussed with patient's at length all questions were answered Objective - Vital Signs Vital signs: Vital Signs - 12hr 05/07/17 05/08/17 23:15 03:58 Temperature 98.4 F 98.2 F Pulse Rate 70 70 Respiratory 20 20 Rate Blood Pressure 122/48 114/49 O2 Sat by Pulse 99 100 Oximetry - Lab 05/08/17 04:47 05/08/17 04:44 Most recent lab results Calcium 7.1 mg/dL (8.4-10.2) L D 05/08/17 04:44
[2017-05-08] MEDS: MEGACE PO SCH ×2 (09:16→22:21)
[2017-05-08] MEDS: ZOLOFT PO SCH (09:18)
[2017-05-08] MEDS: ZAROXOLYN PO SCH (09:18)
[2017-05-08] MEDS: PROTONIX PO SCH (09:18)
[2017-05-08] MEDS: ZYLOPRIM PO SCH (09:18)
[2017-05-08] MEDS: PROAMATINE PO SCH ×3 (09:18→20:58)
[2017-05-08] MEDS: HEPARIN SUB-Q SCH ×2 (09:19→22:21)
[2017-05-08] MEDS: LASIX PO SCH (10:00)
--- NOTE | 2017-05-08 11:04 | Progress Note ---
Assessment and Plan Chest pain, musculoskeletal Hyponatremia Hypotension, chronic on midodrine as an outpatient Atherosclerotic heart disease of [place] coronary artery non-obstructive by [facility] 2011 normal myocardial perfusion on MPI 08/2016 EF 55-60% on echo 07/2016 Pulmonary hypertension on home oxygen therapy on opsimut Chronic atrial fibrillation previously considered not a candidate for oral anticoagulation due to anemia and prior GI bleed. ESRD, on HD Anemia Chronic viral hepatitis C Nonrheumatic tricuspid (valve) insufficiency Hx of cerebrovascular disease Pacemaker/cardiac insitu Recommendations: Dialysis for volume removal. Conservative cardiac management. Subjective Date of service: 05/08/17 Interval history: Patient is still with musculoskeletal chest pain. Objective Vital Signs Temp Pulse Resp Resp BP Pulse Ox 05/08/17 09:39 24 05/08/17 09:28 24 05/08/17 03:58 98.2 F 70 20 114/49 100 05/07/17 23:15 98.4 F 70 20 122/48 99 05/07/17 19:36 98.7 F 70 20 110/44 99 05/07/17 16:05 98.0 F 70 17 138/50 93 05/07/17 14:25 97.5 F L 69 18 152/64 05/07/17 14:15 69 141/52 05/07/17 14:00 69 156/64 05/07/17 13:45 70 155/64 05/07/17 13:30 69 129/55 05/07/17 13:15 79 139/41 05/07/17 13:00 69 161/57 05/07/17 12:45 70 164/61 05/07/17 12:30 69 151/61 05/07/17 12:15 70 176/70 05/07/17 12:00 69 178/71 05/07/17 11:54 70 184/79 05/07/17 11:35 70 173/70 05/07/17 11:24 80 167/68 05/07/17 11:05 69 148/67 - Physical Examination General: No Apparent Distress HEENT: Positive: PERRL Cardiac: Positive: Other (paced) Lungs: Positive: Decreased Breath Sounds Neuro: Positive: Grossly Intact - Labs and Meds CBC 05/08/17 Range/Units 04:47 WBC 6.8 (4.5-11.0) K/mm3 RBC 3.92 (3.65-5.03) M/mm3 Hgb 11.0 (10.1-14.3) gm/dl Hct 36.6 (30.3-42.9) % Plt Count 160 (140-440) K/mm3 Comprehensive Metabolic Panel 05/08/17 Range/Units 04:44 Sodium 140 D (137-145) mmol/L Potassium 3.4 L D (3.6-5.0) mmol/L Chloride 93.3 L (98-107) mmol/L Carbon Dioxide 24 (22-30) mmol/L BUN 52 H (7-17) mg/dL Creatinine 6.5 H (0.7-1.2) mg/dL Glucose 56 L (65-100) mg/dL Calcium 7.1 L D (8.4-10.2) mg/dL
[2017-05-08] MEDS ORDERED: ZOFRAN PO PRN (15:00)
[2017-05-08] MEDS ORDERED: NACL 0.9 (PRIMING MACHINE ONLY DIALYSIS) MC ONE (15:46)
--- NOTE | 2017-05-08 15:55 | Event Note ---
Date: 05/08/17 Progress note on paper because [facility] EMR was down.
[2017-05-08] MEDS ORDERED: MORPHINE ONE (21:16)
[2017-05-08] MEDS ORDERED: REGLAN ONE (21:16)
[2017-05-08] MEDS: NITROSTAT SL PRN (23:59)
[2017-05-09] MEDS: NITROSTAT SL PRN ×2 (00:06→00:11)
[2017-05-09] MEDS ORDERED: MORPHINE IV PRN (00:38)
[2017-05-09] MEDS: LANTUS SUB-Q SCH (01:30)
--- NOTE | 2017-05-09 11:48 | Progress Note ---
Assessment and Plan Chest pain, musculoskeletal Hyponatremia Hypotension, chronic on midodrine as an outpatient Atherosclerotic heart disease of [place] coronary artery non-obstructive by [facility] 2011 normal myocardial perfusion on MPI 08/2016 EF 55-60% on echo 07/2016 Pulmonary hypertension on home oxygen therapy on opsimut Chronic atrial fibrillation previously considered not a candidate for oral anticoagulation due to anemia and prior GI bleed. ESRD, on HD Anemia Chronic viral hepatitis C Nonrheumatic tricuspid (valve) insufficiency Hx of cerebrovascular disease Pacemaker/cardiac insitu Recommendations: Dialysis for volume removal. Conservative cardiac management. Subjective Date of service: 05/09/17 Interval history: Patient is still with musculoskeletal chest pain. No reported cardiac events on telemetry overnight. Objective Vital Signs Temp Pulse Resp BP BP Pulse Ox 05/09/17 08:03 98.4 F 79 18 114/51 99 05/09/17 05:17 98.5 F 70 120/75 05/09/17 04:22 120/55 05/09/17 00:25 97.6 F 18 93 05/09/17 00:19 104/47 05/09/17 00:11 70 108/49 05/09/17 00:06 78 109/48 05/08/17 23:59 73 122/48 05/08/17 22:00 70 05/08/17 20:37 97.3 F L 18 139/60 05/08/17 19:15 97.8 F 70 18 144/54 05/08/17 18:55 72 146/66 05/08/17 18:45 70 144/66 05/08/17 18:30 69 152/68 05/08/17 18:15 70 134/64 05/08/17 18:00 70 136/68 05/08/17 17:45 70 142/66 05/08/17 17:30 70 140/68 05/08/17 17:15 70 152/74 05/08/17 17:00 70 150/74 05/08/17 16:55 97.7 F 74 18 152/70 05/08/17 16:43 22 05/08/17 16:14 70 129/59 100 05/08/17 15:36 70 125/57 100 05/08/17 12:54 98.5 F 70 18 131/60 99 - Physical Examination General: No Apparent Distress HEENT: Positive: PERRL Cardiac: Positive: irregularly irregular Lungs: Positive: Decreased Breath Sounds Neuro: Positive: Grossly Intact
[2017-05-09] MEDS: ZOLOFT PO SCH (12:16)
[2017-05-09] MEDS: PROTONIX PO SCH (12:16)
[2017-05-09] MEDS: LASIX PO SCH (12:17)
[2017-05-09] MEDS: ZYLOPRIM PO SCH (12:17)
[2017-05-09] MEDS: HEPARIN SUB-Q SCH (12:18)
[2017-05-09] MEDS: ZAROXOLYN PO SCH (12:18)
[2017-05-09] MEDS: HumuLIN R SUB-Q SCH ×3 (12:18→18:55)
--- NOTE | 2017-05-09 12:53 | Discharge Summary ---
Providers - Providers Date of Admission: 05/06/17 12:12 Date of discharge: 05/09/17 Attending physician: SANTOSH MOELLER 05/07/17 09:10 Consult to Physician [CONS] Routine Consulting Provider: NATHALIE BETH Reason For Exam: esrd on hd, hyperkalemia Place consult to:: Dr. Beth Notified:: nurse Phone number called:: [phone] Was contact made?: Yes If yes, spoke with:: Isadora Time called:: 09:39 Primary care physician: INFORMATION TECHNOLOGY SPECIALIST Hospitalization Condition: Stable Hospital course: Patient is a 67 year-old. Me speaking woman with history of chronic hypoxic respiratory failure due to COPD on home oxygen, chronic Atrial fibrillation with a permanent pacemaker (not on anticoagulation due to prior serious GI bleed ), ESRD on dialysis, Hepatitis C, Pulmonary HTN, CVA, chronic Hypotension, non- obstructive CAD per 2012 [facility] and diastolic heart failure who presented with cp, sob. She did hemodialysis. 8 months ago, she had a normal myocardial perfusion thallium stress test and a reported preserved ejection fraction, 55% on echocardiogram 07/2016. Normal myocardial perfusion on MPI 08/2016 and v/q low prob for PE cxr chonic vascular congestion -Chest pain, musculoskeletal, costochronitis: treat symptomatically -Fluid overload from ESRD not CHF with severe hyperkalemia: requiring urgent hemodialysis -Hyponatremia: electrolyte/fluid adjustment with hemodialysis -Hypotension, chronic on midodrine as an outpatient -CAD: continue medical management, low salt diet -Pulmonary hypertension on home oxygen therapy: on Opsimut -Chronic atrial fibrillation: previously considered not a candidate for oral anticoagulation due to anemia and prior GI bleed. -ESRD, on HD: Neprhology is following -Anemia of chronic renal disease: monitor h/h closely -Chronic viral hepatitis C -Nonrheumatic tricuspid (valve) insufficiency -Hx of cerebrovascular disease -Pacemaker/cardiac insitu Plan: continue hemodialysis until volume overload improves No further cardiac workup indicated per Cardiology. Cardiology and Nephrology have cleared for discharge Disposition: -01 TO HOME OR SELFCARE Time spent for discharge: 32 min Core Measure Documentation - Palliative Care Palliative Care/ Comfort Measures: Not Applicable - Core Measures Any of the following diagnoses?: none - VTE Discharge Requirements Deep Vein Thrombosis/Pulmonary Embolism Present on Admission: No Has pt received <5 days of overlap therapy or INR<2.0: No Anticoagulant overlap therapy prescribed at discharge: No Contraindication No Overlap Therapy order at DC: Not Indicated Exam - Physical Exam Narrative exam: GEN: WDWN, NAD, AWAKE, ALERT, ORIENTATED HEENT: NCAT, EOMI, PERRL, OP Clear NECK: supple, no adenopathy, no thyromegaly, no JVD CVS/HEART: Irregular regular NORMAL S1S2, pulses present bilaterally CHEST/LUNGS: Diminished breath sounds bilaterally Symmetrical chest expansion, good air entry bilaterally, reproducible chest wall tenderness, pacemaker in place GI/Abdomen: soft, NTND, good bowel sounds, no guarding or rebound /Bladder: no suprapubic tenderness, no CVA or paraspinal tenderness, flank edema EXT/Skin: Dependent edema MSK: FROM x 4 Neuro: CN 2-12 grossly intact, no new focal deficits Psych: calm - Constitutional Vitals: Temp Pulse Resp BP Pulse Ox 98.3 F 70 18 106/45 97 05/09/17 11:54 05/09/17 11:54 05/09/17 11:54 05/09/17 11:54 05/09/17 11:54 Plan Activity: other (no strenous activities) Diet: renal Follow up with: PRIMARY CAREMD [Primary Care Provider] - 3-5 Days NATHALIE BETH MD [Staff Physician] - 7 Days
--- NOTE | 2017-05-09 12:57 | Progress Note ---
Assessment and Plan Impression: * ESRD * volume overload * Hypokalemia * Chr Hypotension * Pulm HTN * pAfib Plan: * Hd q MWF * uf as tolerated with HD * stress compliance with volume intake * strict i/os * daily lytes * Renal diet * ok to dc home from renal standpoint Subjective Date of service: 05/09/17 Principal diagnosis: esrd Interval history: resting in bed today Objective - Exam Narrative Exam: HEENT: Oral mucosa moist no pallor or icterus Neck: Supple no JVD Chest: Clear to auscultation anteriorly CVS: Regular rate and rhythm S1 and S2 heard Abdomen: Soft nontender no suprapubic masses no organomegaly appreciable Extremity: Dry skin less than 1+ peripheral edema Musculoskeletal: No joint effusion noted in knees and ankle Neurological: Alert awake Dermatology: No petechial rashes Psychiatry: No evidence of any agitation and aggression noted - Vital Signs Vital signs: Vital Signs - 12hr 05/09/17 05/09/17 05/09/17 04:22 05:17 08:03 Temperature 98.5 F 98.4 F Pulse Rate 70 79 Respiratory 18 Rate Blood Pressure 120/55 Blood Pressure 120/75 114/51 [Right] O2 Sat by Pulse 99 Oximetry 05/09/17 11:54 Temperature 98.3 F Pulse Rate 70 Respiratory 18 Rate Blood Pressure Blood Pressure 106/45 [Right] O2 Sat by Pulse 97 Oximetry - Lab 05/08/17 04:47 05/08/17 04:44 Most recent lab results Calcium 7.1 mg/dL (8.4-10.2) L D 05/08/17 04:44
[2017-05-09] MEDS: PROAMATINE PO SCH ×3 (15:41→20:57)
[2017-05-09] MEDS: MEGACE PO SCH (18:52)
[2017-05-09] MEDS ORDERED: NACL 0.9 (PRIMING MACHINE ONLY DIALYSIS) MC ONE (18:53)
[2017-05-09 20:46] VITALS: BP 130/51
== END 2017-05-09 20:30 | disposition home or self-care (01) | DRG 205 ==
LOC: ED 09:22 → 4A 12:12
PROVIDERS: ADMIT Internal Medicine; ATTEND Internal Medicine
PROC: 5A1D70Z Performance of Urinary Filtration, Intermittent, Less than 6 Hours Per Day (ICD-10-PCS; 2017-05-07)
PROC: 5A1D70Z Performance of Urinary Filtration, Intermittent, Less than 6 Hours Per Day (ICD-10-PCS; principal; 2017-05-08)
PROC: 5A1D70Z Performance of Urinary Filtration, Intermittent, Less than 6 Hours Per Day (ICD-10-PCS; 2017-05-08)
DX: M94.0 Chondrocostal junction syndrome [Tietze] (principal); N18.6 End stage renal disease; I13.2 Hypertensive heart and chronic kidney disease with heart failure and with stage 5 chronic kidney disease, or end stage renal disease; E87.2 Acidosis; N25.81 Secondary hyperparathyroidism of renal origin; I50.32 Chronic diastolic (congestive) heart failure; J96.11 Chronic respiratory failure with hypoxia; E87.1 Hypo-osmolality and hyponatremia; M19.90 Unspecified osteoarthritis, unspecified site; K21.9 Gastro-esophageal reflux disease without esophagitis; J45.909 Unspecified asthma, uncomplicated; E87.5 Hyperkalemia; I27.20 Pulmonary hypertension, unspecified; I48.2 Chronic atrial fibrillation; B18.2 Chronic viral hepatitis C; D63.1 Anemia in chronic kidney disease; E11.22 Type 2 diabetes mellitus with diabetic chronic kidney disease; I25.10 Atherosclerotic heart disease of native coronary artery without angina pectoris; Z99.2 Dependence on renal dialysis; Z91.15 Patient's noncompliance with renal dialysis; Z79.899 Other long term (current) drug therapy; Z79.82 Long term (current) use of aspirin; Z95.828 Presence of other vascular implants and grafts; Z79.4 Long term (current) use of insulin; I95.89 Other hypotension; Z95.0 Presence of cardiac pacemaker; Z86.73 Personal history of transient ischemic attack (TIA), and cerebral infarction without residual deficits
CPT/HCPCS: 36415; 71045; 78582; 80048; 80061; 82962; 83690; 83880; 84132; 84484; 85025; 85027; 85379; 93005; 93010; A9540; A9558; J1644; J1815; J2270; J2405; J2765; J2785; J7030; Q0162